=== PATIENT | female | born 1975 | race African-American/Black ===

== ENCOUNTER 2020-07-28 17:51 | Emergency (ER) | payer OTHER ==
[~2020-07-28] VITALS: Ht 157.5 cm; Wt 73.0 kg
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
[2020-07-28] MEDS ORDERED: NAPR-514 PO (19:59)
[2020-07-28] MEDS ORDERED: CYCL10TA2 PO (19:59)
[2020-07-28 20:00] VITALS: BP 120/71
== END 2020-07-28 20:10 | disposition home or self-care (01) ==
LOC: ER 17:51
DX: S13.9XXA Sprain of joints and ligaments of unspecified parts of neck, initial encounter (principal); M54.6 Pain in thoracic spine; M54.5 Low back pain; M25.512 Pain in left shoulder; Z88.0 Allergy status to penicillin; V49.49XA Driver injured in collision with other motor vehicles in traffic accident, initial encounter; Y92.488 Other paved roadways as the place of occurrence of the external cause; Y93.89 Activity, other specified; Y99.8 Other external cause status
CPT/HCPCS: 72125; 72128; 72131; 73030; 99285-25

== ENCOUNTER 2020-08-14 10:54 | Emergency (ER) | payer OTHER ==
[~2020-08-14] VITALS: Ht 160 cm; Wt 73.0 kg
[~2020-08-14 10:54] MED LIST: CYCL10TA2 PO; NAPR-514 PO
[2020-08-14] MEDS ORDERED: FAMOTIDINE 20 MG/2 ML VIAL IVP ONE (11:30)
[2020-08-14] MEDS ORDERED: LIDO:MAALOX 1:1 20 ML SINGLE DOSE. SWSW ONE (11:30)
[2020-08-14] MEDS ORDERED: ONDANSETRON PF 4 MG/2 ML VIAL. IVP ONE (11:30)
[2020-08-14] MEDS ORDERED: IV NORMAL SALINE 1000ML BAG 1,000 ML IV SCH (11:30)
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
[2020-08-14 11:59] LABS: BASO # 0.1 x10^3/uL (0.0-0.2); BASO % 1 % (0-3); EOS # 0.2 x10^3/uL (0.0-0.7); EOS % 5 % (0-3); HEMATOCRIT 36.2 % (36.0-47.0); HEMOGLOBIN 12.2 g/dL (12.0-15.5); LYMPH % 19 % (24-48); MEAN CORPUSCULAR HEMOGLOBIN 27 pg (25-35); MEAN CORPUSCULAR HGB CONC 34 g/dL (31-37); MEAN CORPUSCULAR VOLUME 80 fL (79-100); MONO # 0.6 x10^3/uL (0.0-1.1); MONO % 12 % (0-9); NEUT # 3.3 x10^3/uL (1.8-7.7); NEUT % 63 % (31-73); PLATELET COUNT 359 x10^3/uL (140-400); RED BLOOD COUNT 4.51 x10^6/uL (3.50-5.40); RED CELL DISTRIBUTION WIDTH 13.5 % (11.5-14.5); WHITE BLOOD COUNT 5.3 x10^3/uL (4.0-11.0)
[2020-08-14 12:00] VITALS: BP 114/78
[2020-08-14] MEDS ORDERED: fentaNYL PF VIAL 100 MCG/2 ML VIAL IVP ONE (12:15)
[2020-08-14 12:16] LABS: BILIRUBIN,URINE NEGATIVE (NEG); CLARITY,URINE CLEAR; COLOR,URINE YELLOW; NITRITE,URINE NEGATIVE (NEG); PH,URINE 6.5 (<5.0-8.0); PROTEIN,URINE NEGATIVE (NEG-TRACE); UROBILINOGEN,URINE 0.2 mg/dL (0.2 mg/dL)
[2020-08-14 12:17] LABS: CALCIUM 9.2 mg/dL (8.5-10.1); CREATININE 0.8 mg/dL (0.6-1.0); GFR 93.9; POTASSIUM 3.7 mmol/L (3.5-5.1)
[2020-08-14 12:21] LABS: ALBUMIN 3.2 g/dL (3.4-5.0); ALBUMIN/GLOBULIN RATIO 0.7 (1.0-1.7); TOTAL BILIRUBIN 0.3 mg/dL (0.2-1.0); TOTAL PROTEIN 7.6 g/dL (6.4-8.2)
[2020-08-14 12:24] LABS: BACTERIA,URINE 0 /HPF (0-FEW); WBC,URINE OCC /HPF (0-4)
[2020-08-14] MEDS ORDERED: IOHEXOL 300 MG/ML 100ML VIAL. IV ONE (12:30)
[2020-08-14] MEDS ORDERED: CONTRAST GIVEN. MC PRN (12:30)
--- NOTE | 2020-08-14 13:20 | RAD ---
EXAMINATION: CT CHEST+ABD+PELVIS W (CT CHEST WITH IV CONTRAST and CT ABDOMEN AND PELVIS WITH IV CONTR AST) CLINICAL HISTORY: Esophageal pain, vomiting, diarrhea TECHNIQUE: CT of the chest performed with IV contrast, scanning from the thoracic inlet to the upper abdomen. CT of the abdomen and pelvis performed with IV contrast, scanning from just above the dome o f the diaphragm to the symphysis pubis. CT Dose Reduction Employed: One or more of the following individualized dose reduction techniques wer e utilized for this examination: 1. Automated exposure control 2. Adjustment of the mA and/or kV ac cording to patient size 3. Use of iterative reconstruction technique. COMPARISON: Chest radiograph same day, CT cervicothoracolumbar spine 07/28/2020 FINDINGS: CHEST: No consolidation. Mild dependent bibasilar subsegmental atelectasis. No suspicious pulmonary nodule. Old calcified granulomas in the right perihilar region and peripheral right lower lobe. No pleural ef fusion. Central airways are patent. Redemonstration of 1.6 cm hypodense nodule in the right lobe of the thyroid gland. No mediastinal, hi lar, or axillary lymphadenopathy. Thoracic aorta and main pulmonary artery normal in caliber. Normal heart size. No pericardial effusion. Limited evaluation of the minimally distended esophagus unremarkable. No evidence of acute osseous abnormality. Redemonstration of nonspecific calcification in the anterio r epidural space at the level of T6-T8 resulting in mild osseous spinal stenosis. ABDOMEN/PELVIS: 1 cm ill-defined mildly hypoenhancing subcapsular focus in the inferior right hepatic lobe, nonspecif ic. Gallbladder, pancreas, spleen, adrenal glands, and kidneys unremarkable. Decompressed urinary bladder suboptimally evaluated. Intrauterine contraceptive device in place. Adne xa unremarkable. Diffuse colonic wall thickening with scattered submucosal fat deposition, greatest in the ascending c olon, and mild pericolonic stranding compatible with chronic colitis/inflammatory bowel disease. No s mall bowel dilation. Normal appendix. Nondistended stomach suboptimally evaluated. No abdominal aortic or iliac artery aneurysm. Multiple prominent but nonenlarged mesenteric and retro peritoneal lymph nodes, likely reactive. No evidence of acute osseous abnormality. IMPRESSION: No evidence of acute cardiopulmonary or abdominopelvic abnormality. Findings compatible with chronic colitis/inflammatory bowel disease. Redemonstration of 1.6 cm right thyroid nodule, again recommend nonemergent outpatient thyroid ultras ound if this has not already been obtained. Electronically signed by: Ken Levy DO (08/14/2020 1:18 PM) [facility]
[2020-08-14] MEDS ORDERED: ONDA4TAB12 PO (13:42)
[2020-08-14] MEDS ORDERED: FAMO-63 PO (13:42)
[2020-08-14] MEDS ORDERED: SUCR1ORA5 PO (13:42)
--- NOTE | 2020-08-14 19:39 | EKG ---
[facility] [address] [place] [address] Test Date: 2020-08-14 Test Time: 13:47:27 Pat Name: VERONICA LOONEY Department: Room: Gender: F [employer]: : 1975 Requested By: XIMENA ALMODOVAR Order Number: [id number] Reading MD: Measurements Intervals [place] Rate: 87 P: 48 DC: 192 QRS: -12 QRSD: 78 T: 10 QT: 340 QTc: 415 Interpretive Statements SINUS RHYTHM LEFTWARD AXIS OTHERWISE NORMAL ECG RI6.02 Compared to ECG 08/14/2020 13:45:48 Left-axis deviation now present
== END 2020-08-14 15:15 | disposition home or self-care (01) ==
LOC: ER 10:54
DX: R11.2 Nausea with vomiting, unspecified (principal); L29.9 Pruritus, unspecified; E04.1 Nontoxic single thyroid nodule; R52 Pain, unspecified; Z98.890 Other specified postprocedural states
CPT/HCPCS: 36415; 71045; 71260; 74177; 80053; 81001; 81025; 83690; 84484; 85025; 93005; 96361; 96374; 96375; 99285; J2405; J3010; J3490; J7030; Q9967

== ENCOUNTER 2020-10-21 09:03 | Inpatient (IN) | payer OTHER ==
[2020-10-21] VITALS (10 sets, daily range): BP systolic 106–129; BP diastolic 64–89
[~2020-10-21] VITALS: Ht 160 cm; Wt 64.4 kg
[~2020-10-21 09:03] MED LIST changes: +FAMO-63 PO; +ONDA4TAB12 PO; +SUCR1ORA5 PO
[2020-10-21] MEDS ORDERED: IV NORMAL SALINE 1000ML BAG 1,000 ML IV ONE ×2 (09:40)
[2020-10-21] MEDS ORDERED: ACETAMINOPHEN 325 MG TABLET. PO ONE (09:45)
[2020-10-21 09:52] LABS: BASO % 0 % (0-3); EOS % 0 % (0-3); HEMOGLOBIN 14.9 g/dL (12.0-15.5); LYMPH # 0.5 x10^3/uL (1.0-4.8); LYMPH % 4 % (24-48); MEAN CORPUSCULAR HEMOGLOBIN 26 pg (25-35); MEAN CORPUSCULAR HGB CONC 31 g/dL (31-37); MEAN CORPUSCULAR VOLUME 84 fL (79-100); MONO # 0.7 x10^3/uL (0.0-1.1); MONO % 6 % (0-9); NEUT # 11.4 x10^3/uL (1.8-7.7); NEUT % 90 % (31-73); PLATELET COUNT 512 x10^3/uL (140-400); RED BLOOD COUNT 5.75 x10^6/uL (3.50-5.40); RED CELL DISTRIBUTION WIDTH 14.2 % (11.5-14.5); WHITE BLOOD COUNT 12.6 x10^3/uL (4.0-11.0)
[2020-10-21 09:57] LABS: BILIRUBIN,URINE NEGATIVE (NEG); CLARITY,URINE CLEAR; COLOR,URINE YELLOW; NITRITE,URINE NEGATIVE (NEG); PROTEIN,URINE NEGATIVE (NEG-TRACE); UROBILINOGEN,URINE 0.2 mg/dL (0.2 mg/dL)
[2020-10-21 10:02] LABS: PROTHROMBIN TIME PATIENT 14.3 SEC (11.7-14.0)
[2020-10-21 10:03] LABS: AMPHETAMINE/METHAMPHETAMINE NEG (NEG); BARBITURATES NEG (NEG); BENZODIAZEPINES NEG (NEG); CANNABINOIDS NEG (NEG); COCAINE NEG (NEG); METHADONE NEG (NEG); OPIATES NEG (NEG); PHENCYCLIDINE NEG (NEG)
[2020-10-21 10:11] LABS: PREG TEST PT QUAL NEGATIVE (NEG)
--- NOTE | 2020-10-21 10:11 | RAD ---
EXAM: Chest, single view. HISTORY: Fever. COMPARISON: 08/14/2020 FINDINGS: A frontal view of the chest is obtained. There is no infiltrate, pleural effusion or pneumo thorax. The heart is normal in size. IMPRESSION: No acute pulmonary finding. Electronically signed by: Rosalba López MD (10/21/2020 10:08 AM) [id number]
[2020-10-21 10:14] LABS: CALCIUM 10.3 mg/dL (8.5-10.1); CREATININE 1.3 mg/dL (0.6-1.0); GFR 53.6; POTASSIUM 4.8 mmol/L (3.5-5.1)
[2020-10-21 10:16] LABS: ALBUMIN 3.8 g/dL (3.4-5.0); ALBUMIN/GLOBULIN RATIO 0.7 (1.0-1.7); TOTAL BILIRUBIN 0.4 mg/dL (0.2-1.0); TOTAL PROTEIN 8.9 g/dL (6.4-8.2)
[2020-10-21 10:21] LABS: BACTERIA,URINE FEW /HPF (0-FEW); YEAST,URINE PRESENT /HPF
--- NOTE | 2020-10-21 10:37 | PHYS DOC ---
Past Medical History Past Medical History: Anemia, Other Additional Past Medical Histor: HEART MURMUR Past Surgical History: Smoking Status: Never Smoker Alcohol Use: None General Adult EDM: Chief Complaint: DIZZY/LIGHT HEADED HPI: HPI: 45-year-old female presents to the ED with complaints of loose watery diarrhea times 3 days, associated weakness, body aches, subjective fever and chills with sore throat and coughing. States she took hydrocodone prior to arrival. Review of Systems: Review of Systems: Constitutional: Denies fever or chills. [] Eyes: Denies change in visual acuity. [] HENT: Denies nasal congestion or nasal flaring Respiratory: Denies abscess or increased work of breathing Cardiovascular: Denies chest pain or edema. [] GI: Denies melena or hematochezia : Denies dysuria or vaginal bleeding Musculoskeletal: Denies back pain or joint pain. [] Integument: Denies rash or diaphoresis Neurologic: Denies headache, neck pain, focal weakness or sensory changes. [] Endocrine: Denies polyuria or polydipsia. [] Lymphatic: Denies swollen glands. [] Psychiatric: Denies depression or anxiety. [] Heart Score: C/O Chest Pain: No Risk Factors: Risk Factors: DM, Current or recent (<one month) smoker, HTN, HLP, family history of CAD, obesity. Risk Scores: Score 0 - 3: 2.5% MACE over next 6 weeks - Discharge Home Score 4 - 6: 20.3% MACE over next 6 weeks - Admit for Clinical Observation Score 7 - 10: 72.7% MACE over next 6 weeks - Early Invasive Strategies Current Medications: Current Medications Medications (Trade) Dose Ordered Sig/Bhupinder Start Time Stop Time Status Last Admin Dose Admin Acetaminophen (Tylenol) 650 mg 1X ONCE 10/21/20 09:45 10/21/20 09:46 DC 10/21/20 10:23 650 MG Sodium Chloride 1,000 ml @ 1,000 mls/hr 1X ONCE 10/21/20 09:40 10/21/20 10:39 10/21/20 10:22 1,000 MLS/HR Allergies: Allergies: Allergies Coded Allergies Type Severity Reaction Last Updated Verified Penicillins Allergy Mild 07/28/20 Yes Physical Exam: PE: Constitutional: no acute distress, ill/flu appearing. HENT: Normocephalic, atraumatic, dry mucous membranes Eyes: EOMI, conjunctiva normal, no discharge. Neck: Normal range of motion, supple, Cardiovascular: S1/2 present, tachycardic Lungs & Thorax: Speaking in full sentences, bilateral equal chest rise, no tachypnea or increased work of breathing Abdomen: soft, no tenderness, Skin: Warm, dry, no erythema, no rash. [] Back: No tenderness, no CVA tenderness. [] Extremities: No tenderness, no cyanosis, no lower extremity edema Neurologic: Alert and oriented X 3, normal motor function, normal sensory function, no focal deficits noted. [] Psychologic: Affect normal, judgement normal, mood normal. [] Current Patient Data: Labs: Laboratory Tests Test 10/21/20 09:07 10/21/20 09:30 10/21/20 09:36 Urine Collection Type Unknown Urine Color Yellow Urine Clarity Clear Urine pH 5.0 (<5.0-8.0) Urine Specific [place] >=1.030 (1.000-1.030) Urine Protein Negative mg/dL (NEG-TRACE) Urine Glucose (UA) >=1000 mg/dL (NEG) Urine Ketones (Stick) >=80 mg/dL (NEG) Urine Blood Negative (NEG) Urine Nitrite Negative (NEG) Urine Bilirubin Negative (NEG) Urine Urobilinogen Dipstick 0.2 mg/dL (0.2 mg/dL) Urine Leukocyte Esterase Negative (NEG) Urine RBC 1-2 /HPF (0-2) Urine WBC 1-4 /HPF (0-4) Urine Squamous Epithelial Cells Mod /LPF Urine Bacteria Few /HPF (0-FEW) Urine Yeast Present /HPF Urine Opiates Screen Neg (NEG) Urine Methadone Screen Neg (NEG) Urine Barbiturates Neg (NEG) Urine Phencyclidine Screen Neg (NEG) Urine Amphetamine/Methamphetamine Neg (NEG) Urine Benzodiazepines Screen Neg (NEG) Urine Cocaine Screen Neg (NEG) Urine Cannabinoids Screen Neg (NEG) Urine Ethyl Alcohol Neg (NEG) White Blood Count 12.6 x10^3/uL (4.0-11.0) H Red Blood Count 5.75 x10^6/uL (3.50-5.40) H Hemoglobin 14.9 g/dL (12.0-15.5) Hematocrit 48.0 % (36.0-47.0) H Mean Corpuscular Volume 84 fL (79-100) Mean Corpuscular Hemoglobin 26 pg (25-35) Mean Corpuscular Hemoglobin Concent 31 g/dL (31-37) Red Cell Distribution Width 14.2 % (11.5-14.5) Platelet Count 512 x10^3/uL (140-400) H Neutrophils (%) (Auto) 90 % (31-73) H Lymphocytes (%) (Auto) 4 % (24-48) L Monocytes (%) (Auto) 6 % (0-9) Eosinophils (%) (Auto) 0 % (0-3) Basophils (%) (Auto) 0 % (0-3) Neutrophils # (Auto) 11.4 x10^3/uL (1.8-7.7) H Lymphocytes # (Auto) 0.5 x10^3/uL (1.0-4.8) L Monocytes # (Auto) 0.7 x10^3/uL (0.0-1.1) Eosinophils # (Auto) 0.0 x10^3/uL (0.0-0.7) Basophils # (Auto) 0.0 x10^3/uL (0.0-0.2) Platelet Estimate Pending Sodium Level 136 mmol/L (136-145) Potassium Level 4.8 mmol/L (3.5-5.1) Chloride Level 96 mmol/L (98-107) L Carbon Dioxide Level 16 mmol/L (21-32) L Anion Gap 24 (6-14) H Blood Urea Nitrogen 22 mg/dL (7-20) H Creatinine 1.3 mg/dL (0.6-1.0) H Estimated GFR (Cockcroft-Gault) 53.6 BUN/Creatinine Ratio 17 (6-20) Glucose Level 897 mg/dL (70-99) *H Lactic Acid Level 3.2 mmol/L (0.4-2.0) H Calcium Level 10.3 mg/dL (8.5-10.1) H Total Bilirubin 0.4 mg/dL (0.2-1.0) Aspartate Amino Transferase (AST) 10 U/L (15-37) L Alanine Aminotransferase (ALT) 17 U/L (14-59) Alkaline Phosphatase 135 U/L (46-116) H Creatine Kinase 36 U/L (26-192) Troponin I Quantitative < 0.017 ng/mL (0.000-0.055) Total Protein 8.9 g/dL (6.4-8.2) H Albumin 3.8 g/dL (3.4-5.0) Albumin/Globulin Ratio 0.7 (1.0-1.7) L Lipase 1099 U/L (73-393) H Serum Test, Qualitative Negative (NEG) POC Urine HCG, Qualitative Hcg negative (Negative) Laboratory Tests 10/21/20 09:30 Laboratory Tests 10/21/20 09:30 Vital Signs: Vital Signs Date Time Temp Pulse Resp B/P (MAP) Pulse Ox O2 Delivery O2 Flow Rate FiO2 10/21/20 09:10 98.2 136 20 128/85 (99) 99 Room Air 98.2 EKG: EKG: Sinus tachycardia 120 bpm, no axis deviation, normal intervals, no T wave inv ersions, no ST elevations or ST depressions Radiology/Procedures: Radiology/Procedures: IMAGING REPORT Signed PATIENT: VERONICA LOONEY ACCOUNT: [id number] : 1975 LOCATION: ER AGE: 45 SEX: F EXAM STATUS: PRE ER ORD. PHYSICIAN: JANETTE LOZANO DO REASON: fever PROCEDURE: CHEST AP ONLY EXAM: Chest, single view. HISTORY: Fever. COMPARISON: 08/14/2020 FINDINGS: A frontal view of the chest is obtained. There is no infiltrate, pleural effusion or pneumothorax. The heart is normal in size. IMPRESSION: No acute pulmonary finding. Electronically signed by: Rosalba Russ MD (10/21/2020 10:08 AM) [id number] DICTATED and SIGNED BY: ROSALBA RUSS MD DATE: 10/21/20 [id number] IMAGING REPORT Signed PATIENT: VERONICA LOONEY ACCOUNT: [id number] : 1975 LOCATION: [address] [place] [address] AGE: 45 SEX: F EXAM STATUS: ADM IN ORD. PHYSICIAN: JANETTE LOZANO DO REASON: SOA, R/O PE, pancreatitis PROCEDURE: CT ANGIO CHEST W ABD PEL W/ EXAM: Chest, abdomen and pelvis CT angiogram with intravenous contrast. HISTORY: Shortness of air. Pancreatitis. TECHNIQUE: Computed tomographic images of the chest, abdomen and pelvis were obtained following the administration of intravenous contrast. Multiplanar reformatting was performed. Three-dimensional images were obtained. *One or more of the following individualized dose reduction techniques were utilized for this examination: 1. Automated exposure control. 2. Adjustment of the mA and/or kV according to patient size. 3. Use of iterative reconstruction technique. COMPARISON: None. FINDINGS: Chest: There is no aortic aneurysm or dissection. No central pulmonary embolism is seen. Evaluation for distal pulmonary emboli is limited due to timing of contrast administration. There are calcified mediastinal and hilar granulomas. There is no lymphadenopathy. There is no pneumothorax or pleural effusion. There is a former nodule with adjacent 2 mm nodule within the lateral right lower lobe. Abdomen and pelvis: No hepatic lesion is seen. The gallbladder, pancreas, spleen and adrenal glands are unremarkable. There is a small simple appearing cyst within the left kidney. Follow-up is not routinely performed for simple cysts. There is no appendicitis. There is no bowel obstruction. There is mild diffuse colonic wall thickening. There is no bowel obstruction. There is no free air. The urinary bladder is unremarkable. There is an IUD within the pelvis. There is a 2.6 cm dominant right ovarian follicle/follicular cyst. There is no lymphadenopathy. There is no suspicious osseous lesion. IMPRESSION: 1. No evidence of aortic dissection or central pulmonary embolism. Evaluation for distal pulmonary emboli is limited due to suboptimal contrast opacification of pulmonary arteries. 2. No CT evidence of acute pancreatitis. 3. Mild diffuse colonic wall thickening. This may be due to underdistention. However, correlate with hematology to exclude colitis 4. 4 mm and 2 mm right lower lobe pulmonary nodules. Follow-up can be performed in one year if there are risk factors for for neoplasm. 5. Small left renal cyst. Follow-up is not routinely performed for simple cysts. 6. 2.6 cm dominant right ovarian follicle/follicular cyst. Electronically signed by: Rosalba Russ MD (10/21/2020 1:16 PM) [id number] DICTATED and SIGNED BY: ROSALBA RUSS MD DATE: 10/21/20 [id number] 0 Course & Med Decision Making: Course & Med Decision Making Pertinent Labs and Imaging studies reviewed. (See chart for details) Concern for new onset diabetes with sepsis secondary to pancreatitis and DKA. I have spoken with the patient and/or caregivers. I have explained the patient's condition, diagnosis and treatment plan based on the information available to me at this time. I have answered the patient's and/or caregivers questions and answered any concerns. The patient and/or caregivers have as good an understanding of the patient's diagnosis, condition and treatment plan as can be expected at this point. The patient has been stabilized within the capability of the emergency department. The patient will be transported for further care and management or will be moved to an observation or inpatient service. I have communicated with the staff or medical practitioner taking over this patient's care. Critical Care: Authorized and Performed by: Janette Lozano DO Total critical care time: approximately 45 minutes Due to a high probability of clinically significant, life threatening deterioration, the patient required my highest level of preparedness to intervene emergently and I personally spent this critical care time directly and personally managing the patient. This critical care time included obtaining a history; examining the patient; pulse oximetry; ventilator management if necessary; ordering and review of studies; arranging urgent treatment with development of a management plan; evaluation of patient's response to treatment; frequent reassessment; discussion with patient/family; and, discussions with other providers. This critical care time was performed to assess and manage the high probability of imminent, life-threatening deterioration that could result in multi-organ failure. It was exclusive of separately billable procedures and treating other patients and teaching time. Please see MDM section and the rest of the note for further information on patient assessment and treatment. Dragon Disclaimer: Dragon Disclaimer: This electronic medical record was generated, in whole or in part, using a voice recognition dictation system. Departure Departure Impression: Primary Impression: DKA (diabetic ketoacidoses) Additional Impressions: Sepsis Pancreatitis Disposition: ADMITTED INPATIENT Admitting Physician: BEVERLY (Dr. Garcia) Condition: CRITICAL Referrals: UNKNOWN PCP NAME (PCP) JANETTE LOZANO DO Oct 21, 2020 10:37
[2020-10-21 10:39] LABS: D-DIMER 0.81 ug/mlFEU (0.00-0.50)
[2020-10-21] MEDS ORDERED: IV RINGERS,LACTATED 500ML 500 ML IV ONE (10:45)
[2020-10-21 10:54] LABS: ACETAMIN < 2 mcg/ml (10-30); ETHANOL < 10 mg/dL (0-10); SALIC 4.4 mg/dL (2.8-20.0)
--- NOTE | 2020-10-21 11:02 | EKG ---
[facility] [address] [place] [address] Test Date: 2020-10-21 Test Time: 09:23:23 Pat Name: VERONICA LOONEY Department: Room: Gender: F Director Of Collections: : 1975 Requested By: BONNIE LOZANO Order Number: [id number] Reading MD: Measurements Intervals [place] Rate: 129 P: 80 [place]: 124 QRS: -7 QRSD: 70 T: 44 QT: 306 QTc: 450 Interpretive Statements SINUS TACHYCARDIA BIATRIAL ENLARGEMENT LEFTWARD AXIS ABNORMAL ECG RI6.02 No previous ECG available for comparison
[2020-10-21 11:06] LABS: % BANDS 16 % (0-9); % LYMPHS 4 % (24-48); % MONOS 5 % (0-10); % SEGS 75 % (35-66)
[2020-10-21 11:07] LABS: PLT ESTIMATE ADEQUATE (ADEQUATE)
[2020-10-21] MEDS ORDERED: HYDROmorphone 2 MG/ML VIAL IVP ONE (12:00)
[2020-10-21 12:13] LABS: MAGNESIUM 2.6 mg/dL (1.8-2.4); PHOSPHORUS 7.5 mg/dL (2.6-4.7)
[2020-10-21] MEDS ORDERED: POTASSIUM CHLORIDE 10MEQ 100 ML IV PRN ×3 (12:15)
[2020-10-21] MEDS ORDERED: IV DEXTROSE 5 %-0.45 % NACL 1,000 ML IV SCH (12:15)
[2020-10-21] MEDS ORDERED: IOHEXOL 350 MG/ML 100 ML VIAL. IV ONE (12:15)
[2020-10-21] MEDS ORDERED: IOHEXOL 300 MG/ML 100ML VIAL. IV ONE (12:15)
[2020-10-21] MEDS ORDERED: INSULIN REGULAR VIAL 100 UNIT in IV NORMAL SALINE 100ML 100 ML IV PRN (12:15)
[2020-10-21 12:29] LABS: INFLUENZA A PATIENT NEGATIVE (NEGATIVE); INFLUENZA B PATIENT NEGATIVE (NEGATIVE)
[2020-10-21] MEDS ORDERED: IV NORMAL SALINE 1000ML BAG 1,000 ML IV SCH (12:45)
[2020-10-21] MEDS ORDERED: INSULIN,REGULAR 100 UNIT DRIP 100 ML IV ONE (12:45)
--- NOTE | 2020-10-21 13:18 | RAD ---
EXAM: Chest, abdomen and pelvis CT angiogram with intravenous contrast. HISTORY: Shortness of air. Pancreatitis. TECHNIQUE: Computed tomographic images of the chest, abdomen and pelvis were obtained following the a dministration of intravenous contrast. Multiplanar reformatting was performed. Three-dimensional imag es were obtained. *One or more of the following individualized dose reduction techniques were utilized for this examina tion: 1. Automated exposure control. 2. Adjustment of the mA and/or kV according to patient size. 3. Use of iterative reconstruction technique. COMPARISON: None. FINDINGS: Chest: There is no aortic aneurysm or dissection. No central pulmonary embolism is seen. Ev aluation for distal pulmonary emboli is limited due to timing of contrast administration. There are c alcified mediastinal and hilar granulomas. There is no lymphadenopathy. There is no pneumothorax or p leural effusion. There is a former nodule with adjacent 2 mm nodule within the lateral right lower lo be. Abdomen and pelvis: No hepatic lesion is seen. The gallbladder, pancreas, spleen and adrenal glands a re unremarkable. There is a small simple appearing cyst within the left kidney. Follow-up is not rout inely performed for simple cysts. There is no appendicitis. There is no bowel obstruction. There is m ild diffuse colonic wall thickening. There is no bowel obstruction. There is no free air. The urinary bladder is unremarkable. There is an IUD within the pelvis. There is a 2.6 cm dominant right ovarian follicle/follicular cyst. There is no lymphadenopathy. There is no suspicious osseous lesion. IMPRESSION: 1. No evidence of aortic dissection or central pulmonary embolism. Evaluation for distal pulmonary em boli is limited due to suboptimal contrast opacification of pulmonary arteries. 2. No CT evidence of acute pancreatitis. 3. Mild diffuse colonic wall thickening. This may be due to underdistention. However, correlate with hematology to exclude colitis 4. 4 mm and 2 mm right lower lobe pulmonary nodules. Follow-up can be performed in one year if there are risk factors for for neoplasm. 5. Small left renal cyst. Follow-up is not routinely performed for simple cysts. 6. 2.6 cm dominant right ovarian follicle/follicular cyst. Electronically signed by: Rosalba López MD (10/21/2020 1:16 PM) [id number]
[2020-10-21 14:17] LABS: CALCIUM 8.5 mg/dL (8.5-10.1); GFR 72.5; MAGNESIUM 2.3 mg/dL (1.8-2.4); PHOSPHORUS 4.1 mg/dL (2.6-4.7); POTASSIUM 5.2 mmol/L (3.5-5.1)
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
[2020-10-21] MEDS: ENOXAPARIN 40 MG/0.4 ML SYRINGE. SQ SCH (15:00)
[2020-10-21] MEDS: IV 1/2 NORMAL SALINE 1,000 ML IV SCH ×3 (15:28→22:45)
[2020-10-21 17:31] LABS: CALCIUM 8.3 mg/dL (8.5-10.1); CREATININE 0.9 mg/dL (0.6-1.0); GFR 81.9; MAGNESIUM 2.2 mg/dL (1.8-2.4); PHOSPHORUS 1.6 mg/dL (2.6-4.7); POTASSIUM 3.9 mmol/L (3.5-5.1)
[2020-10-21] MEDS: IV DEXTROSE 5 %-0.45 % NACL 1,000 ML IV SCH ×2 (17:56→21:52)
[2020-10-21] MEDS ORDERED: NORMAL SALINE IV ONE (18:00)
[2020-10-21] MEDS ORDERED: POTASSIUM PHOS M BASIC D BASIC IV ONE (18:00)
[2020-10-21] MEDS ORDERED: DEXTROSE 50% 25 GM / 50ML DISP.SYRIN. IV PRN (19:00)
[2020-10-21] MEDS: INSULIN GLARGINE SYRINGE. SQ SCH (21:03)
[2020-10-22] VITALS (7 sets, daily range): BP systolic 100–128; BP diastolic 60–77
[2020-10-22] MEDS: IV DEXTROSE 5 %-0.45 % NACL 1,000 ML IV SCH ×2 (01:58→06:31)
[2020-10-22] MEDS: IV 1/2 NORMAL SALINE 1,000 ML IV SCH ×6 (02:45→22:45)
[2020-10-22 06:00] LABS: CALCIUM 7.4 mg/dL (8.5-10.1); CREATININE 0.7 mg/dL (0.6-1.0); GFR 109.5; POTASSIUM 3.7 mmol/L (3.5-5.1)
[2020-10-22] MEDS ORDERED: INSULIN LISPRO 300 UNITS/3 ML VIAL. SQ SCH (07:30)
[2020-10-22] MEDS: INSULIN LISPRO 300 UNITS/3 ML VIAL. SQ SCH ×5 (08:48→18:19)
[2020-10-22] MEDS ORDERED: IV NORMAL SALINE 1000ML BAG 1,000 ML IV ONE (09:30)
[2020-10-22] MEDS: IV NORMAL SALINE 1000ML BAG 1,000 ML IV SCH ×2 (11:00→21:04)
[2020-10-22] MEDS: ONDANSETRON PF 4 MG/2 ML VIAL. IVP PRN ×2 (11:09→23:36)
[2020-10-22] MEDS: ACETAMINOPHEN 325 MG TABLET. PO PRN ×2 (11:10→21:17)
--- NOTE | 2020-10-22 14:40 | PDOC ---
[employer] PROGRESS NOTE Date of Service DOS: DATE: 10/22/20 TIME: 14:38 Chief Complaint Chief Complaint DKA, acute acidosis, blood sugar almost 900 anxiety disorder, ativan PRN she reports prior hx of anemia, dehydration on admit History of Present Illness History of Present Illness up and trying to eat, some anxiety and very emotional still cont current, went up on meal dose insulin nausea tx as able transfer out of ICU bolus additional 1 liter NS Vitals/I&O Vitals/I&O: Vital Signs Date Time Temp Pulse Resp B/P (MAP) Pulse Ox O2 Delivery O2 Flow Rate FiO2 10/22/20 11:00 98.9 114 22 115/66 (82) 97 Room Air 98.9 I & O 10/21/20 10/21/20 10/22/20 15:00 23:00 07:00 Intake Total 2750 ml 510 ml 250 ml Output Total 400 ml 300 ml 851 ml Balance 2350 ml 210 ml -601 ml Physical Exam General: Alert, Oriented X3, Cooperative, mild distress Extremities: No clubbing, No edema, Normal pulses Skin: No breakdown Labs Labs: Laboratory Tests Test 10/21/20 14:50 10/21/20 15:53 10/21/20 16:58 10/21/20 17:10 Glucose (Fingerstick) 434 mg/dL (70-99) 330 mg/dL (70-99) 273 mg/dL (70-99) Sodium Level 147 mmol/L (136-145) Potassium Level 3.9 mmol/L (3.5-5.1) Chloride Level 113 mmol/L (98-107) Carbon Dioxide Level 23 mmol/L (21-32) Anion Gap 11 (6-14) Blood Urea Nitrogen 12 mg/dL (7-20) Creatinine 0.9 mg/dL (0.6-1.0) Estimated GFR (Cockcroft-Gault) 81.9 Glucose Level 241 mg/dL (70-99) Calcium Level 8.3 mg/dL (8.5-10.1) Phosphorus Level 1.6 mg/dL (2.6-4.7) Magnesium Level 2.2 mg/dL (1.8-2.4) Triglycerides Level 96 mg/dL (0-150) Lipase 432 U/L (73-393) Test 10/21/20 19:40 10/21/20 22:19 10/22/20 00:34 10/22/20 05:00 Glucose (Fingerstick) 188 mg/dL (70-99) 222 mg/dL (70-99) 286 mg/dL (70-99) Sodium Level 138 mmol/L (136-145) Potassium Level 3.7 mmol/L (3.5-5.1) Chloride Level 107 mmol/L (98-107) Carbon Dioxide Level 20 mmol/L (21-32) Anion Gap 11 (6-14) Blood Urea Nitrogen 7 mg/dL (7-20) Creatinine 0.7 mg/dL (0.6-1.0) Estimated GFR (Cockcroft-Gault) 109.5 Glucose Level 441 mg/dL (70-99) Calcium Level 7.4 mg/dL (8.5-10.1) Test 10/22/20 08:11 10/22/20 12:38 Glucose (Fingerstick) 382 mg/dL (70-99) 296 mg/dL (70-99) Assessment and Plan Assessmemt and Plan Problems Medical Problems: (1) DKA (diabetic ketoacidoses) Status: Acute (2) Pancreatitis Status: Acute (3) Sepsis Status: Acute Comment Review of Relevant I have reviewed the following items allyssa (where applicable) has been applied. Medications: Current Medications Medications (Trade) Dose Ordered Sig/Bhupinder Route PRN Reason Start Time Stop Time Status Last Admin Dose Admin Sodium Chloride 1,000 ml @ 250 mls/hr Q4H IV 10/21/20 14:45 10/21/20 15:28 Dextrose/Sodium Chloride 1,000 ml @ 250 mls/hr Q4H IV 10/21/20 18:00 10/22/20 09:14 DC 10/22/20 06:31 Potassium Phosphate 20 mmol/ Sodium Chloride 506.6667 ml @ 125 mls/hr 1X ONCE IV 10/21/20 18:00 10/21/20 22:03 DC 10/21/20 18:02 Insulin Glargine (Lantus Syringe) 12 unit QHS SQ 10/21/20 21:00 10/21/20 21:03 Insulin Human Lispro (HumaLOG) 0-9 UNITS TIDWMEALS SQ 10/22/20 08:00 10/22/20 12:43 Insulin Human Lispro (HumaLOG) 3 units TIDAC SQ 10/22/20 07:30 10/22/20 09:13 DC 10/22/20 08:47 Insulin Human Lispro (HumaLOG) 6 units TIDAC SQ 10/22/20 11:30 10/22/20 12:43 Sodium Chloride 1,000 ml @ 1,000 mls/hr 1X ONCE IV 10/22/20 09:30 10/22/20 10:29 DC 10/22/20 09:45 Sodium Chloride 1,000 ml @ 100 mls/hr Q10H IV 10/22/20 11:00 10/22/20 11:00 Ondansetron HCl (Zofran) 4 mg PRN Q6HRS PRN IVP NAUSEA/VOMITING 10/22/20 11:00 10/22/20 11:09 Acetaminophen (Tylenol) 650 mg PRN Q6HRS PRN PO MILD PAIN / TEMP > 100.3'F 10/22/20 11:00 10/22/20 11:10 Justifications for Admission Other Justification MESFIN PIZARRO MD October 22, 2020 14:40
[2020-10-22] MEDS ORDERED: POTASSIUM CHLORIDE 20 MEQ TABLET.ER. PO ONE (14:45)
[2020-10-22] MEDS: ENOXAPARIN 40 MG/0.4 ML SYRINGE. SQ SCH (15:40)
[2020-10-22] MEDS: INSULIN GLARGINE SYRINGE. SQ SCH (21:05)
[2020-10-23] MEDS: IV 1/2 NORMAL SALINE 1,000 ML IV SCH (02:45)
[2020-10-23 03:00] VITALS: BP 124/67
[2020-10-23 05:11] LABS: BASO % 0 % (0-3); EOS # 0.1 x10^3/uL (0.0-0.7); EOS % 1 % (0-3); HEMATOCRIT 33.5 % (36.0-47.0); HEMOGLOBIN 10.6 g/dL (12.0-15.5); LYMPH # 0.9 x10^3/uL (1.0-4.8); LYMPH % 13 % (24-48); MEAN CORPUSCULAR HEMOGLOBIN 25 pg (25-35); MEAN CORPUSCULAR HGB CONC 32 g/dL (31-37); MEAN CORPUSCULAR VOLUME 80 fL (79-100); MONO % 15 % (0-9); NEUT # 4.6 x10^3/uL (1.8-7.7); NEUT % 70 % (31-73); PLATELET COUNT 305 x10^3/uL (140-400); RED BLOOD COUNT 4.17 x10^6/uL (3.50-5.40); RED CELL DISTRIBUTION WIDTH 14.3 % (11.5-14.5); WHITE BLOOD COUNT 6.6 x10^3/uL (4.0-11.0)
--- NOTE | 2020-10-23 05:30 | NUR ---
Pt transferred out to rm [id number]. Pt alert and oriented and stable. Report called to Faisal CHOE prior transfer. Pt had multiple liquid stools overnight, C Diff sample was collected and sent, also pt with low grade fever, tylenol given once, temp was 100 this am
[2020-10-23 05:40] VITALS: BP 116/68
[2020-10-23 05:40] LABS: CALCIUM 7.6 mg/dL (8.5-10.1); CREATININE 0.6 mg/dL (0.6-1.0); GFR 130.8
[2020-10-23 05:47] LABS: POTASSIUM 2.9 mmol/L (3.5-5.1)
[2020-10-23] MEDS ORDERED: POTASSIUM CHLORIDE 20 MEQ TABLET.ER. PO ONE ×2 (06:00→10:00)
[2020-10-23 07:00] VITALS: BP 125/77
[2020-10-23] MEDS: INSULIN LISPRO 300 UNITS/3 ML VIAL. SQ SCH ×6 (07:30→17:56)
[2020-10-23] MEDS: ACETAMINOPHEN 325 MG TABLET. PO PRN ×3 (09:06→16:09)
[2020-10-23] MEDS: IV NORMAL SALINE 1000ML BAG 1,000 ML IV SCH (09:08)
[2020-10-23] MEDS: ONDANSETRON PF 4 MG/2 ML VIAL. IVP PRN (09:25)
[2020-10-23 10:22] LABS: MAGNESIUM 1.7 mg/dL (1.8-2.4); PHOSPHORUS 2.3 mg/dL (2.6-4.7)
[2020-10-23] MEDS ORDERED: POTASSIUM BICARB 20 MEQ EFFERVESCENT TABLET. PO ONE (10:30)
--- NOTE | 2020-10-23 10:54 | PDOC ---
[employer] PROGRESS NOTE Date of Service DOS: DATE: 10/23/20 TIME: 09:55 Chief Complaint Chief Complaint A/P: DKA - acute acidosis, blood sugar almost 900 Anxiety disorder - ativan PRN Anemia - Dehydration - History of Present Illness History of Present Illness Ms Zamarripa is 45yo F w/ PMHx anemia, uterine fibroids who presented to the ED via EMS from home due to progressive weakness with 8-10 episodes of diarrhea and emesis. She was unable to lift her arms or legs. She had a headache 710 as well as some nominal pain 7 out of 10. She had just recently finished treatment with amoxicillin and Medrol for dental caries last week. Very tearful she has no history that she knows of high blood sugar or diabetes. She follows at [facility]. Initially admitted to the ICU on DKA protocol with glucose over 900. 10/22: Up and trying to eat, some anxiety and very emotional still. Went up on meal dose insulin. Transfer out of ICU. Bolus additional 1 liter NS Glucose in 200s K2.9. Still with abdominal pain today. D/w father bedside. Replace phos, mag, K Vitals/I&O Vitals/I&O: Vital Signs Date Time Temp Pulse Resp B/P (MAP) Pulse Ox O2 Delivery O2 Flow Rate FiO2 10/23/20 07:00 98.6 99 18 125/77 (93) 97 Room Air 98.6 I & O 10/22/20 10/22/20 10/23/20 15:00 23:00 07:00 Intake Total 2705 ml 250 ml 511 ml Output Total 1175 ml 350 ml Balance 1530 ml 250 ml 161 ml Physical Exam General: Alert, Oriented X3, Cooperative, mild distress Extremities: No clubbing, No edema, Normal pulses Skin: No breakdown Labs Labs: Laboratory Tests Test 10/22/20 12:38 10/22/20 18:08 10/22/20 21:02 10/23/20 05:00 Glucose (Fingerstick) 296 mg/dL (70-99) 238 mg/dL (70-99) 153 mg/dL (70-99) White Blood Count 6.6 x10^3/uL (4.0-11.0) Red Blood Count 4.17 x10^6/uL (3.50-5.40) Hemoglobin 10.6 g/dL (12.0-15.5) Hematocrit 33.5 % (36.0-47.0) Mean Corpuscular Volume 80 fL (79-100) Mean Corpuscular Hemoglobin 25 pg (25-35) Mean Corpuscular Hemoglobin Concent 32 g/dL (31-37) Red Cell Distribution Width 14.3 % (11.5-14.5) Platelet Count 305 x10^3/uL (140-400) Neutrophils (%) (Auto) 70 % (31-73) Lymphocytes (%) (Auto) 13 % (24-48) Monocytes (%) (Auto) 15 % (0-9) Eosinophils (%) (Auto) 1 % (0-3) Basophils (%) (Auto) 0 % (0-3) Neutrophils # (Auto) 4.6 x10^3/uL (1.8-7.7) Lymphocytes # (Auto) 0.9 x10^3/uL (1.0-4.8) Monocytes # (Auto) 1.0 x10^3/uL (0.0-1.1) Eosinophils # (Auto) 0.1 x10^3/uL (0.0-0.7) Basophils # (Auto) 0.0 x10^3/uL (0.0-0.2) Sodium Level 140 mmol/L (136-145) Potassium Level 2.9 mmol/L (3.5-5.1) Chloride Level 106 mmol/L (98-107) Carbon Dioxide Level 22 mmol/L (21-32) Anion Gap 12 (6-14) Blood Urea Nitrogen 3 mg/dL (7-20) Creatinine 0.6 mg/dL (0.6-1.0) Estimated GFR (Cockcroft-Gault) 130.8 Glucose Level 264 mg/dL (70-99) Calcium Level 7.6 mg/dL (8.5-10.1) Test 10/23/20 08:01 Glucose (Fingerstick) 266 mg/dL (70-99) Assessment and Plan Assessmemt and Plan Problems Medical Problems: (1) DKA (diabetic ketoacidoses) Status: Acute (2) Pancreatitis Status: Acute (3) Sepsis Status: Acute Comment Review of Relevant I have reviewed the following items allyssa (where applicable) has been applied. Medications: Current Medications Medications (Trade) Dose Ordered Sig/Bhupinder Route PRN Reason Start Time Stop Time Status Last Admin Dose Admin Insulin Human Lispro (HumaLOG) 6 units TIDAC SQ 10/22/20 11:30 10/23/20 07:30 Sodium Chloride 1,000 ml @ 100 mls/hr Q10H IV 10/22/20 11:00 10/23/20 09:08 Ondansetron HCl (Zofran) 4 mg PRN Q6HRS PRN IVP NAUSEA/VOMITING 10/22/20 11:00 10/23/20 09:25 Acetaminophen (Tylenol) 650 mg PRN Q6HRS PRN PO MILD PAIN / TEMP > 100.3'F 10/22/20 11:00 10/23/20 09:48 Potassium Chloride (Klor-Con) 20 meq 1X ONCE PO 10/22/20 14:45 10/22/20 14:46 DC 10/22/20 15:40 Potassium Chloride (Klor-Con) 40 meq 1X ONCE PO 10/23/20 06:00 10/23/20 06:01 DC 10/23/20 06:00 Potassium Chloride (Klor-Con) 40 meq 1X ONCE PO 10/23/20 10:00 10/23/20 10:01 10/23/20 09:06 Justifications for Admission Other Justification NORMA WOODY MD October 23, 2020 10:54
[2020-10-23] MEDS ORDERED: MAGNESIUM SULFATE 2GM 50 ML IV ONE (11:00)
[2020-10-23] MEDS: KETOROLAC 15 MG/ML VIAL. IVP PRN ×2 (12:12→21:55)
[2020-10-23] MEDS: POTASSIUM CHLORIDE 10MEQ 100 ML IV SCH ×2 (12:12→18:43)
[2020-10-23] MEDS ORDERED: POTASSIUM PHOS,M-BASIC-D-BASIC 13.6 MMOL in IV NORMAL SALINE 250ML 250 ML IV ONE (13:00)
[2020-10-23 15:00] VITALS: BP 115/62
[2020-10-23] MEDS: ENOXAPARIN 40 MG/0.4 ML SYRINGE. SQ SCH (18:09)
[2020-10-23 19:00] VITALS: BP 108/65
[2020-10-23] MEDS ORDERED: IBUPROFEN 400 MG TABLET. PO ONE (20:15)
--- NOTE | 2020-10-23 20:24 | NUR ---
Not completed today, pt did not want to do at that time. Was not feeling good all shift Addendum: 10/23/20 at 2025 by JENISE MICHAELS LPN LPN Amended: Links added.
[2020-10-23] MEDS: INSULIN GLARGINE SYRINGE. SQ SCH (21:01)
[2020-10-23 21:04] LABS: CALCIUM 8.1 mg/dL (8.5-10.1); CREATININE 0.7 mg/dL (0.6-1.0); GFR 109.5; POTASSIUM 3.1 mmol/L (3.5-5.1)
[2020-10-23 23:00] VITALS: BP 111/64
[2020-10-24 03:00] VITALS: BP 97/67
[2020-10-24 03:11] LABS: HEMOGLOBIN A1C 13.7 % (4.8-5.6)
[2020-10-24] MEDS: IV NORMAL SALINE 1000ML BAG 1,000 ML IV SCH ×3 (03:24→23:07)
[2020-10-24] MEDS: ACETAMINOPHEN 325 MG TABLET. PO PRN ×3 (03:36→21:18)
[2020-10-24 07:00] VITALS: BP 106/68
[2020-10-24] MEDS ORDERED: 0.9 % SODIUM CHLORIDE 10 ML DISP.SYRIN. IV PRN ×3 (07:45)
[2020-10-24] MEDS: ONDANSETRON PF 4 MG/2 ML VIAL. IVP PRN ×2 (08:13→12:21)
[2020-10-24] MEDS: KETOROLAC 15 MG/ML VIAL. IVP PRN ×3 (08:13→21:18)
[2020-10-24] MEDS: INSULIN LISPRO 300 UNITS/3 ML VIAL. SQ SCH ×6 (08:32→17:46)
[2020-10-24 08:53] LABS: MAGNESIUM 2.2 mg/dL (1.8-2.4); PHOSPHORUS 2.7 mg/dL (2.6-4.7)
[2020-10-24] MEDS ORDERED: LIDOCAINE WITH 8.4% SOD BICARB 3 ML DISP.SYRIN. INJ ONE (09:30)
[2020-10-24 09:58] LABS: CREATININE 0.6 mg/dL (0.6-1.0); GFR 130.8; POTASSIUM 3.7 mmol/L (3.5-5.1)
--- NOTE | 2020-10-24 10:00 | NUR ---
PICC line cancelled by Dr. Gimenez. Plans to change IV antibiotic to po.
[2020-10-24 11:00] VITALS: BP 113/69
[2020-10-24] MEDS: AMOXICILLIN/K CLAV 875/125MG TABLET. PO SCH ×2 (11:57→21:23)
--- NOTE | 2020-10-24 11:58 | PDOC ---
[employer] PROGRESS NOTE Date of Service DOS: DATE: 10/24/20 TIME: 11:51 Chief Complaint Chief Complaint A/P: DKA - acute acidosis, blood sugar almost 900 Anxiety disorder - ativan PRN Anemia - Dehydration - History of Present Illness History of Present Illness Pt was seen and examined at bed side DAVION RN DAVION [employer] Entertainer Chart Reviewed Ms Zamarripa is 45yo F w/ PMHx anemia, uterine fibroids who presented to the ED via EMS from home due to progressive weakness with 8-10 episodes of diarrhea and emesis. She was unable to lift her arms or legs. She had a headache 710 as well as some nominal pain 7 out of 10. She had just recently finished treatment with amoxicillin and Medrol for dental caries last week. Very tearful she has no history that she knows of high blood sugar or diabetes. She follows at [facility]. Initially admitted to the ICU on DKA protocol with glucose over 900. 10/22: Up and trying to eat, some anxiety and very emotional still. Went up on meal dose insulin. Transfer out of ICU. Bolus additional 1 liter NS Glucose in 200s K2.9. Still with abdominal pain today. D/w father bedside. Replace phos, mag, K Vitals/I&O Vitals/I&O: Vital Signs Date Time Temp Pulse Resp B/P (MAP) Pulse Ox O2 Delivery O2 Flow Rate FiO2 10/24/20 11:00 98.1 103 20 113/69 (84) 99 Room Air 98.1 Physical Exam General: Alert, Oriented X3, Cooperative, mild distress Heart: Regular rate Extremities: No clubbing, No edema, Normal pulses Skin: No breakdown Labs Labs: Laboratory Tests Test 10/23/20 11:57 10/23/20 15:07 10/23/20 17:20 10/23/20 20:24 Glucose (Fingerstick) 261 mg/dL (70-99) 290 mg/dL (70-99) 247 mg/dL (70-99) SARS-CoV-2 Antigen (Rapid) Negative (NEGATIVE) Test 10/23/20 20:40 10/24/20 06:45 10/24/20 07:44 10/24/20 11:18 Sodium Level 138 mmol/L (136-145) 143 mmol/L (136-145) Potassium Level 3.1 mmol/L (3.5-5.1) 3.7 mmol/L (3.5-5.1) Chloride Level 105 mmol/L (98-107) 107 mmol/L (98-107) Carbon Dioxide Level 24 mmol/L (21-32) 21 mmol/L (21-32) Anion Gap 9 (6-14) 15 (6-14) Blood Urea Nitrogen 6 mg/dL (7-20) 8 mg/dL (7-20) Creatinine 0.7 mg/dL (0.6-1.0) 0.6 mg/dL (0.6-1.0) Estimated GFR (Cockcroft-Gault) 109.5 130.8 Glucose Level 265 mg/dL (70-99) 294 mg/dL (70-99) Lactic Acid Level 1.1 mmol/L (0.4-2.0) Calcium Level 8.1 mg/dL (8.5-10.1) 8.0 mg/dL (8.5-10.1) Phosphorus Level 2.7 mg/dL (2.6-4.7) Magnesium Level 2.2 mg/dL (1.8-2.4) Glucose (Fingerstick) 263 mg/dL (70-99) 343 mg/dL (70-99) Review of Systems Review of Systems: No Weakness, No no acute changes in vision, no numbness or tingling of the extremities Assessment and Plan Assessmemt and Plan Assessment: DKA - acute acidosis, blood sugar almost 900 Anxiety disorder - ativan PRN Anemia - Dehydration - Plan: Start Augmentin 875 PO BID Adjust Insulin Potassium Home Medications Start 20mg Prozac qday Trend labs DVT PPx Full Code Comment Review of Relevant I have reviewed the following items allyssa (where applicable) has been applied. Medications: Current Medications Medications (Trade) Dose Ordered Sig/Bhupinder Route PRN Reason Start Time Stop Time Status Last Admin Dose Admin Potassium Phosphate 13.6 mmol/Sodium Chloride 254.5333 ml @ 127.... 1X ONCE IV 10/23/20 13:00 10/23/20 14:59 DC 10/23/20 23:14 Ibuprofen (Motrin) 400 mg 1X ONCE PO 10/23/20 20:15 10/23/20 20:16 DC 10/23/20 21:00 Levofloxacin/ Dextrose 100 ml @ 100 mls/hr 1X ONCE IV 10/23/20 21:00 5/2/21 21:59 DC 10/23/20 20:27 Justifications for Admission Other Justification PRICE OSWALD III DO October 24, 2020 11:58
--- NOTE | 2020-10-24 13:15 | NUR ---
SW following. Discussed with RN, pt from home, room air, ada diet, COVID-19 negative. PICC line being placed due to poor access. PT/OT recommending home. Blood cultures pending. RN advised no SW needs at this time. SW will continue to follow.
[2020-10-24 15:00] VITALS: BP 126/66
--- NOTE | 2020-10-24 15:15 | NUR ---
c/o being chilly. Low grade temp 100.9. Tylenol given. Cont. monitor.
[2020-10-24] MEDS: ENOXAPARIN 40 MG/0.4 ML SYRINGE. SQ SCH (15:20)
--- NOTE | 2020-10-24 16:00 | NUR ---
Still having severl loose stools with foul odder. Poor appetite. States gets nauseated zofran given. But drinking lots water. Over 1000cc. cont. monitor.
[2020-10-24 19:00] VITALS: BP 121/67
[2020-10-24] MEDS: LACTOBACILLUS RHAMNOSUS GG 1 CAPSULE. PO SCH (21:23)
[2020-10-24] MEDS: INSULIN GLARGINE SYRINGE. SQ SCH (21:24)
--- NOTE | 2020-10-24 22:05 | NUR ---
Pt began complaining of chest pain and shortness of breath. RN contacted ICU to see about callling a rapid, PAEDODONTIST stated to get a 12 lead EKG. While getting RT for EKG, shobha house was called by tech because daughter stated she was not breathing. When RN made it to room, pt was unconscious to voice but woke to sternal rub. Pt did have a pulse and breath sounds upon arriving as well. O2 sat was obtained and was 98% on room air. After EKG was done it showed sinus tach with no abnormalities. Gave pt Tylenol and Toradol for the fever. Will continue to monitor
--- NOTE | 2020-10-24 22:21 | EKG ---
[facility] [address] [place] [address] Test Date: 2020-10-24 Test Time: 21:11:05 Pat Name: VERONICA LOONEY Department: Room: 444 Gender: F Project Management Specialist: RAJENDRA : 1975 Requested By: MESFIN PIZARRO Order Number: [id number] Reading MD: Measurements Intervals [place] Rate: 120 P: -170 MD: 132 QRS: 0 QRSD: 74 T: 42 QT: 360 QTc: 514 Interpretive Statements SINUS TACHYCARDIA LEFTWARD AXIS NO SPECIFIC ECG ABNORMALITIES RI6.01 No previous ECG available for comparison
[2020-10-24 23:00] VITALS: BP 115/61
--- NOTE | 2020-10-24 23:00 | NUR ---
Was called to see patient for c/o chest pain and SOA. RN was to get a 12 lead EKG. While going to the unit a Code Joe was called by the DROSOPHERE OPERATOR. Upon arrival pt was lethargic but responding. She never lost a pulse according to her nurse. Loren house was cancelled and the Nursing Molding Sander and I worked at reassuring the patient that her vital signs were perfect and her rapid heart rate was due to to her fever. Tylenol was given and patient will be monitored tonight.
[2020-10-25 03:00] VITALS: BP 121/75
[2020-10-25] MEDS: ACETAMINOPHEN 325 MG TABLET. PO PRN ×3 (03:59→20:33)
[2020-10-25 05:00] LABS: BASO % 0 % (0-3); EOS # 0.1 x10^3/uL (0.0-0.7); EOS % 2 % (0-3); HEMATOCRIT 31.3 % (36.0-47.0); HEMOGLOBIN 9.9 g/dL (12.0-15.5); LYMPH # 0.5 x10^3/uL (1.0-4.8); LYMPH % 7 % (24-48); MEAN CORPUSCULAR HEMOGLOBIN 25 pg (25-35); MEAN CORPUSCULAR HGB CONC 32 g/dL (31-37); MEAN CORPUSCULAR VOLUME 80 fL (79-100); MONO # 1.6 x10^3/uL (0.0-1.1); MONO % 23 % (0-9); NEUT # 4.9 x10^3/uL (1.8-7.7); NEUT % 69 % (31-73); PLATELET COUNT 302 x10^3/uL (140-400); RED BLOOD COUNT 3.92 x10^6/uL (3.50-5.40); RED CELL DISTRIBUTION WIDTH 14.2 % (11.5-14.5); WHITE BLOOD COUNT 7.1 x10^3/uL (4.0-11.0)
[2020-10-25 06:04] LABS: CALCIUM 7.8 mg/dL (8.5-10.1); CREATININE 0.6 mg/dL (0.6-1.0); GFR 130.8
[2020-10-25 06:08] LABS: POTASSIUM 2.9 mmol/L (3.5-5.1)
[2020-10-25] MEDS ORDERED: POTASSIUM CHLORIDE 20 MEQ TABLET.ER. PO ONE ×2 (06:45→12:00)
[2020-10-25 07:00] VITALS: BP 115/67
[2020-10-25 08:58] LABS: % BANDS 47 % (0-9); % EOS 2 % (0-5); % LYMPHS 10 % (24-48); % METAS 11 % (0-0); % MONOS 16 % (0-10); % MYELOS 2 % (0-0); % SEGS 12 % (35-66)
[2020-10-25 08:59] LABS: PLT ESTIMATE ADEQUATE (ADEQUATE)
[2020-10-25] MEDS: INSULIN LISPRO 300 UNITS/3 ML VIAL. SQ SCH ×6 (09:00→17:00)
[2020-10-25] MEDS: AMOXICILLIN/K CLAV 875/125MG TABLET. PO SCH ×2 (10:08→20:32)
[2020-10-25] MEDS: LACTOBACILLUS RHAMNOSUS GG 1 CAPSULE. PO SCH ×2 (10:08→20:32)
[2020-10-25] MEDS: IV NORMAL SALINE 1000ML BAG 1,000 ML IV SCH ×2 (10:45→19:18)
[2020-10-25 11:02] VITALS: BP 123/72
--- NOTE | 2020-10-25 11:47 | PDOC ---
[employer] PROGRESS NOTE Date of Service DOS: DATE: 10/25/20 TIME: 11:42 Chief Complaint Chief Complaint Nausea, vomiting, fever, and weakness. Found to be in DKA (blood sugar 900). History of Present Illness History of Present Illness Pt was seen and examined at bed side DAVION RN DAVION Spindle Sander Chart Reviewed Ms Zamarripa is 45yo F w/ PMHx anemia, uterine fibroids who presented to the ED via EMS from home due to progressive weakness with 8-10 episodes of diarrhea and emesis. She was unable to lift her arms or legs. She had a headache 710 as well as some nominal pain 7 out of 10. She had just recently finished treatment with amoxicillin and Medrol for dental caries last week. Very tearful she has no history that she knows of high blood sugar or diabetes. She follows at [facility]. Initially admitted to the ICU on DKA protocol with glucose over 900. 10/25/2020: Pt. was seen and examined at bedside. Discussed case with RN. Discussed case with spring encaser. The chart was reviewed. There was a code blue call last night, however, the pt. was found to be stable. This morning she was tired, weak, and tachycardic (HR: 119). She has no new concerns or complaints. The pt.'s mood appeared to be improved from yesterday. 10/22: Up and trying to eat, some anxiety and very emotional still. Went up on meal dose insulin. Transfer out of ICU. Bolus additional 1 liter NS Glucose in 200s K2.9. Still with abdominal pain today. D/w father bedside. Replace phos, mag, K Vitals/I&O Vitals/I&O: Vital Signs Date Time Temp Pulse Resp B/P (MAP) Pulse Ox O2 Delivery O2 Flow Rate FiO2 10/25/20 11:02 102.4 122 18 123/72 (89) 98 Room Air 102.4 I & O 10/24/20 10/24/20 10/25/20 15:00 23:00 07:00 Intake Total 240 ml Output Total 350 ml Balance -110 ml Physical Exam General: Alert, Oriented X3, Cooperative, No acute distress, mild distress, Other (General affect was improved from yesetday) Heart: Regular rate Abdomen: No tenderness Extremities: No clubbing, No cyanosis, No edema, Normal pulses Skin: No breakdown Labs Labs: Laboratory Tests Test 10/24/20 16:25 10/25/20 04:50 10/25/20 07:21 10/25/20 11:09 Glucose (Fingerstick) 297 mg/dL (70-99) 196 mg/dL (70-99) 188 mg/dL (70-99) White Blood Count 7.1 x10^3/uL (4.0-11.0) Red Blood Count 3.92 x10^6/uL (3.50-5.40) Hemoglobin 9.9 g/dL (12.0-15.5) Hematocrit 31.3 % (36.0-47.0) Mean Corpuscular Volume 80 fL (79-100) Mean Corpuscular Hemoglobin 25 pg (25-35) Mean Corpuscular Hemoglobin Concent 32 g/dL (31-37) Red Cell Distribution Width 14.2 % (11.5-14.5) Platelet Count 302 x10^3/uL (140-400) Neutrophils (%) (Auto) 69 % (31-73) Lymphocytes (%) (Auto) 7 % (24-48) Monocytes (%) (Auto) 23 % (0-9) Eosinophils (%) (Auto) 2 % (0-3) Basophils (%) (Auto) 0 % (0-3) Neutrophils # (Auto) 4.9 x10^3/uL (1.8-7.7) Lymphocytes # (Auto) 0.5 x10^3/uL (1.0-4.8) Monocytes # (Auto) 1.6 x10^3/uL (0.0-1.1) Eosinophils # (Auto) 0.1 x10^3/uL (0.0-0.7) Basophils # (Auto) 0.0 x10^3/uL (0.0-0.2) Segmented Neutrophils % 12 % (35-66) Band Neutrophils % 47 % (0-9) Lymphocytes % 10 % (24-48) Monocytes % 16 % (0-10) Eosinophils % 2 % (0-5) Metamyelocytes % 11 % (0-0) Myelocytes % 2 % (0-0) Dohle Bodies Present Platelet Estimate Adequate (ADEQUATE) Sodium Level 139 mmol/L (136-145) Potassium Level 2.9 mmol/L (3.5-5.1) Chloride Level 104 mmol/L (98-107) Carbon Dioxide Level 21 mmol/L (21-32) Anion Gap 14 (6-14) Blood Urea Nitrogen 4 mg/dL (7-20) Creatinine 0.6 mg/dL (0.6-1.0) Estimated GFR (Cockcroft-Gault) 130.8 Glucose Level 239 mg/dL (70-99) Calcium Level 7.8 mg/dL (8.5-10.1) Review of Systems Review of Systems: No chest pain, SOB, acute changes in vision, or headaches. Assessment and Plan Assessmemt and Plan Assessment: DKA - acute acidosis, blood sugar almost 900 Anxiety disorder - ativan PRN Anemia - Dehydration - Plan: Continue Augmentin 875 PO BID Adjust Insulin Potassium PO or IV as tolerated by the pt. IV Fluids Home Medications Continue 20mg Prozac qday Trend labs (CBC/CMP) DVT PPx Encourage PO Intake Cardiac Monitoring Full Code Comment Review of Relevant I have reviewed the following items allyssa (where applicable) has been applied. Medications: Current Medications Medications (Trade) Dose Ordered Sig/Bhupinder Route PRN Reason Start Time Stop Time Status Last Admin Dose Admin Lactobacillus Rhamnosus (Culturelle) 1 cap BID PO 10/24/20 21:00 10/25/20 10:08 Potassium Chloride (Klor-Con) 40 meq 1X ONCE PO 10/25/20 06:45 10/25/20 06:50 DC 10/25/20 07:03 Justifications for Admission Other Justification PRICE OSWALD III DO October 25, 2020 11:47
[2020-10-25] MEDS ORDERED: POTASSIUM BICARB 20 MEQ EFFERVESCENT TABLET. PO ONE (12:00)
[2020-10-25 14:47] VITALS: BP 126/65
[2020-10-25] MEDS: POTASSIUM CHLORIDE 10MEQ 100 ML IV SCH ×4 (15:35→20:32)
[2020-10-25] MEDS: ENOXAPARIN 40 MG/0.4 ML SYRINGE. SQ SCH (16:24)
[2020-10-25 19:35] VITALS: BP 118/71
[2020-10-25] MEDS: KETOROLAC 15 MG/ML VIAL. IVP PRN (20:33)
[2020-10-25] MEDS: INSULIN GLARGINE SYRINGE. SQ SCH (21:25)
[2020-10-25 23:09] VITALS: BP 97/57
[2020-10-26] VITALS (16 sets, daily range): BP systolic 95–131; BP diastolic 53–75
[2020-10-26] MEDS: IV NORMAL SALINE 1000ML BAG 1,000 ML IV SCH ×2 (05:06→17:03)
[2020-10-26] MEDS: KETOROLAC 15 MG/ML VIAL. IVP PRN ×2 (05:18→09:33)
[2020-10-26 07:21] LABS: BASO % 0 % (0-3); EOS # 0.1 x10^3/uL (0.0-0.7); EOS % 1 % (0-3); HEMATOCRIT 30.3 % (36.0-47.0); HEMOGLOBIN 9.7 g/dL (12.0-15.5); LYMPH # 0.4 x10^3/uL (1.0-4.8); LYMPH % 7 % (24-48); MEAN CORPUSCULAR HEMOGLOBIN 25 pg (25-35); MEAN CORPUSCULAR HGB CONC 32 g/dL (31-37); MEAN CORPUSCULAR VOLUME 79 fL (79-100); MONO # 1.5 x10^3/uL (0.0-1.1); MONO % 25 % (0-9); NEUT # 3.9 x10^3/uL (1.8-7.7); NEUT % 66 % (31-73); PLATELET COUNT 350 x10^3/uL (140-400); RED BLOOD COUNT 3.84 x10^6/uL (3.50-5.40); RED CELL DISTRIBUTION WIDTH 14.1 % (11.5-14.5); WHITE BLOOD COUNT 5.9 x10^3/uL (4.0-11.0)
[2020-10-26] MEDS: INSULIN LISPRO 300 UNITS/3 ML VIAL. SQ SCH ×6 (07:30→17:06)
[2020-10-26 07:48] LABS: CALCIUM 7.9 mg/dL (8.5-10.1); CREATININE 0.5 mg/dL (0.6-1.0); GFR 161.4
[2020-10-26] MEDS ORDERED: POTASSIUM BICARB 20 MEQ EFFERVESCENT TABLET. PO ONE (08:30)
--- NOTE | 2020-10-26 08:54 | PDOC ---
[employer] PROGRESS NOTE Date of Service DOS: DATE: 10/26/20 TIME: 08:51 Chief Complaint Chief Complaint Nausea, vomiting, fever, and weakness. Found to be in DKA (blood sugar 900). History of Present Illness History of Present Illness Ms Zamarripa is 45yo F w/ PMHx anemia, uterine fibroids who presented to the ED via EMS from home due to progressive weakness with 8-10 episodes of diarrhea and emesis. She was unable to lift her arms or legs. She had a headache 710 as well as some nominal pain 7 out of 10. She had just recently finished treatment with amoxicillin and Medrol for dental caries last week. Very tearful she has no history that she knows of high blood sugar or diabetes. She follows at [facility]. Initially admitted to the ICU on DKA protocol with glucose over 900. 10/26/2020: Pt. was seen and examined at bedside. Discussed case with RN. Discussed case with case supervisor. The chart was reviewed. She has no new concerns or complaints. The pt.'s mood appeared to be improved from yesterday. She was resting comfortably when we saw her. She states her diarrhea has not improved since she was admitted. She is negative for C. diff. 10/25/2020: Pt. was seen and examined at bedside. Discussed case with RN. Discussed case with case supervisor. The chart was reviewed. There was a code blue call last night, however, the pt. was found to be stable. This morning she was tired, weak, and tachycardic (HR: 119). She has no new concerns or complaints. The pt.'s mood appeared to be improved from yesterday. 10/22: Up and trying to eat, some anxiety and very emotional still. Went up on meal dose insulin. Transfer out of ICU. Bolus additional 1 liter NS Glucose in 200s K2.9. Still with abdominal pain today. D/w father bedside. Replace phos, mag, K Vitals/I&O Vitals/I&O: Vital Signs Date Time Temp Pulse Resp B/P (MAP) Pulse Ox O2 Delivery O2 Flow Rate FiO2 10/26/20 07:19 99.1 115 18 115/62 (79) 98 Room Air 99.1 I & O 10/25/20 10/25/20 10/26/20 15:00 23:00 07:00 Intake Total 300 ml 1320 ml Balance 300 ml 1320 ml Physical Exam General: Alert, Oriented X3, Cooperative, No acute distress, mild distress, Other (General affect was improved from yesetday) Heart: Regular rate Abdomen: No tenderness Extremities: No clubbing, No cyanosis, No edema, Normal pulses Skin: No rashes, No breakdown Labs Labs: Laboratory Tests Test 10/25/20 11:09 10/25/20 16:07 10/25/20 20:54 10/26/20 06:30 Glucose (Fingerstick) 188 mg/dL (70-99) 119 mg/dL (70-99) 181 mg/dL (70-99) White Blood Count 5.9 x10^3/uL (4.0-11.0) Red Blood Count 3.84 x10^6/uL (3.50-5.40) Hemoglobin 9.7 g/dL (12.0-15.5) Hematocrit 30.3 % (36.0-47.0) Mean Corpuscular Volume 79 fL (79-100) Mean Corpuscular Hemoglobin 25 pg (25-35) Mean Corpuscular Hemoglobin Concent 32 g/dL (31-37) Red Cell Distribution Width 14.1 % (11.5-14.5) Platelet Count 350 x10^3/uL (140-400) Neutrophils (%) (Auto) 66 % (31-73) Lymphocytes (%) (Auto) 7 % (24-48) Monocytes (%) (Auto) 25 % (0-9) Eosinophils (%) (Auto) 1 % (0-3) Basophils (%) (Auto) 0 % (0-3) Neutrophils # (Auto) 3.9 x10^3/uL (1.8-7.7) Lymphocytes # (Auto) 0.4 x10^3/uL (1.0-4.8) Monocytes # (Auto) 1.5 x10^3/uL (0.0-1.1) Eosinophils # (Auto) 0.1 x10^3/uL (0.0-0.7) Basophils # (Auto) 0.0 x10^3/uL (0.0-0.2) Sodium Level 138 mmol/L (136-145) Potassium Level 3.0 mmol/L (3.5-5.1) Chloride Level 103 mmol/L (98-107) Carbon Dioxide Level 20 mmol/L (21-32) Anion Gap 15 (6-14) Blood Urea Nitrogen 3 mg/dL (7-20) Creatinine 0.5 mg/dL (0.6-1.0) Estimated GFR (Cockcroft-Gault) 161.4 Glucose Level 187 mg/dL (70-99) Calcium Level 7.9 mg/dL (8.5-10.1) Test 10/26/20 07:02 Glucose (Fingerstick) 185 mg/dL (70-99) Review of Systems Review of Systems: No chest pain, headaches, acute changes in vision, or headaches. Assessment and Plan Assessmemt and Plan Assessment: 45 year old female with: DKA - acute acidosis, blood sugar almost 900 Anxiety disorder - ativan PRN Anemia - Dehydration - Plan: Consult GI, specialist input appreciated Continue Augmentin 875 PO BID possibly start Flagyl Adjust Insulin Potassium PO or IV as tolerated by the pt. IV Fluids Home Medications Continue 20mg Prozac qday Trend labs (CBC/CMP) DVT PPx Encourage PO Intake Cardiac Monitoring Full Code Comment Review of Relevant I have reviewed the following items allyssa (where applicable) has been applied. Medications: Current Medications Medications (Trade) Dose Ordered Sig/Bhupinder Route PRN Reason Start Time Stop Time Status Last Admin Dose Admin Potassium Bicarbonate (Potassium Effervescent Tablet) 40 meq 1X ONCE PO 10/25/20 12:00 10/25/20 12:01 DC 10/25/20 11:58 Potassium Chloride (Klor-Con) 40 meq 1X ONCE PO 10/25/20 12:00 10/25/20 12:10 DC 10/25/20 12:00 Potassium Chloride/Water 100 ml @ 100 mls/hr Q1H IV 10/25/20 15:30 10/25/20 19:29 DC 10/25/20 20:32 Justifications for Admission Other Justification PRICE OSWALD III DO October 26, 2020 08:54
[2020-10-26] MEDS: AMOXICILLIN/K CLAV 875/125MG TABLET. PO SCH (09:17)
[2020-10-26] MEDS: LACTOBACILLUS RHAMNOSUS GG 1 CAPSULE. PO SCH ×2 (09:17→20:48)
[2020-10-26] MEDS: LOPERAMIDE 2 MG CAPSULE PO PRN (09:17)
[2020-10-26] MEDS: ONDANSETRON PF 4 MG/2 ML VIAL. IVP PRN ×2 (09:33→17:21)
[2020-10-26] MEDS: ACETAMINOPHEN 325 MG TABLET. PO PRN ×3 (09:34→20:44)
--- NOTE | 2020-10-26 10:24 | NUR ---
Pt cont to have incontinent diarrhea that is light brown. She c/o cramping in her lower ABD that felt like labor pains. Pt then will have a fever. HR cont to be in the 120's. She is very emotional and cries while this nurse is in the room asking "what is wrong with me, am I dying." This nurse gives her emotional support and she eventually calms down. GI will consult in regards to uncontrolled diarrhea. She also has a hard time swallowing pills, has had emesis this AM while trying to swallow them
--- NOTE | 2020-10-26 12:00 | NUR ---
Pt febrile and tachycardic. Paged Dr. Gimenez and received orders for consult to ID and IV abx.
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
[2020-10-26] MEDS ORDERED: VANCOMYCIN PER PHARMACY MC PRN (12:45)
[2020-10-26] MEDS ORDERED: PIP/TAZO PER PHARMACY MC PRN (12:45)
[2020-10-26] MEDS ORDERED: VANCOMYCIN 1.5 GM in IV NORMAL SALINE 500ML BAG 500 ML IV ONE (14:00)
--- NOTE | 2020-10-26 14:03 | PDOC ---
Infectious Disease Note Vital Sign Vital Signs Vital Signs Date Time Temp Pulse Resp B/P (MAP) Pulse Ox O2 Delivery O2 Flow Rate FiO2 10/26/20 10:37 101.3 126 18 123/71 (88) 96 Room Air 101.3 Labs Lab Laboratory Tests Test 10/25/20 16:07 10/25/20 20:54 10/26/20 06:30 10/26/20 07:02 Glucose (Fingerstick) 119 mg/dL (70-99) 181 mg/dL (70-99) 185 mg/dL (70-99) White Blood Count 5.9 x10^3/uL (4.0-11.0) Red Blood Count 3.84 x10^6/uL (3.50-5.40) Hemoglobin 9.7 g/dL (12.0-15.5) Hematocrit 30.3 % (36.0-47.0) Mean Corpuscular Volume 79 fL (79-100) Mean Corpuscular Hemoglobin 25 pg (25-35) Mean Corpuscular Hemoglobin Concent 32 g/dL (31-37) Red Cell Distribution Width 14.1 % (11.5-14.5) Platelet Count 350 x10^3/uL (140-400) Neutrophils (%) (Auto) 66 % (31-73) Lymphocytes (%) (Auto) 7 % (24-48) Monocytes (%) (Auto) 25 % (0-9) Eosinophils (%) (Auto) 1 % (0-3) Basophils (%) (Auto) 0 % (0-3) Neutrophils # (Auto) 3.9 x10^3/uL (1.8-7.7) Lymphocytes # (Auto) 0.4 x10^3/uL (1.0-4.8) Monocytes # (Auto) 1.5 x10^3/uL (0.0-1.1) Eosinophils # (Auto) 0.1 x10^3/uL (0.0-0.7) Basophils # (Auto) 0.0 x10^3/uL (0.0-0.2) Sodium Level 138 mmol/L (136-145) Potassium Level 3.0 mmol/L (3.5-5.1) Chloride Level 103 mmol/L (98-107) Carbon Dioxide Level 20 mmol/L (21-32) Anion Gap 15 (6-14) Blood Urea Nitrogen 3 mg/dL (7-20) Creatinine 0.5 mg/dL (0.6-1.0) Estimated GFR (Cockcroft-Gault) 161.4 Glucose Level 187 mg/dL (70-99) Calcium Level 7.9 mg/dL (8.5-10.1) Iron Level 68 ug/dL (50-170) Total Iron Binding Capacity 329 ug/dL (250-450) Iron Saturation 21 % (15-34) Test 10/26/20 11:03 Glucose (Fingerstick) 208 mg/dL (70-99) Micro Microbiology 10/23/20 Blood Culture - Preliminary, Resulted NO GROWTH AFTER 2 DAYS Objective Assessment Fever ? colitis with loose stools DKA PCN allergy - hives and throat swelling but tolerates Amoxicillin Heart murmur Recent dental cleaning with pre Amox Just finished steroids Plan Plan of Care Repeat Blood cults Check lipase/TSH/LFTs Disc Vanc and begin Dapto Cont Zosyn Add Fluconazole/Flagyl IV with GI issues Repeat C-diff Consider repeat CT but wait GI follow up D/w family Thank you # [phone] LANDY GUZMÁN MD October 26, 2020 14:03
[2020-10-26] MEDS: FLUCONAZOLE 400MG/200ML PREMIX 200 ML IV SCH ×2 (14:28→21:28)
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
--- NOTE | 2020-10-26 14:45 | NUR ---
Temp 102.[address] Gimenez received orders to transfer to tele.
[2020-10-26] MEDS: ENOXAPARIN 40 MG/0.4 ML SYRINGE. SQ SCH (15:00)
[2020-10-26] MEDS ORDERED: DAPTOmycin (GENERIC) IVPB 390 MG in IV NORMAL SALINE 50ML 50 ML IV SCH (15:00)
[2020-10-26 15:03] LABS: ALBUMIN 1.5 g/dL (3.4-5.0); DIRECT BILIRUBIN 0.1 mg/dL (0.0-0.2); TOTAL BILIRUBIN 0.3 mg/dL (0.2-1.0); TOTAL PROTEIN 5.4 g/dL (6.4-8.2)
--- NOTE | 2020-10-26 15:30 | NUR ---
Patient transfer from 4th floor. Upon admission BP wnl, HR in the 130's, O2 sat 98% on RA with a temp of 103.3. PICC team here to place PICC. Lactic 1.2. ABX administered, patient stable with family bedside. transfer report from Radha Livingston. Will monitor
--- NOTE | 2020-10-26 15:30 | NUR ---
While pt was walking with PT started c/o SOA and chest tightness. Pt assisted to chair. O2 99 HR 160. Rapid called. Pt was assisted to bed and taken to room. EKG ordered. Xochitl regalado in room stated pt will transfer to room 110. Belongings were walked down to room. Report given to DAIJA Santana.
--- NOTE | 2020-10-26 15:55 | NUR ---
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
--- NOTE | 2020-10-26 16:37 | NUR ---
PICC insertion noteProcedure: Following complete explanation of the PICC procedure including the indications, risks, and potential complications, informed consent was obtained. The possibility for infection was discussed along with signs, symptoms, and prevention. All the questions were answered. Written and verbal patient education was provided. Hand hygiene performed. Standardized central line checklist was utilized. The patient was placed in the supine position, the arm was prepped with chlorhexidine and patient draped with maximum sterile barrier. 5 mL 1% lidocaine was infiltrated into the skin to provide local anesthesia. A thorough assessment of right upper extremity completed. Using real-time ultrasound guidance and standardized micro puncture set, the brachial vein was punctured and a peel away sheath was placed using the modified Seldinger technique. A tip location device was used to ensure adequate catheter placement. The catheter was secured using a securement device and an antimicrobial patch was applied directly on the insertion site followed by a transparent dressing. All ports withdraw blood and flush without resistance. Patient tolerated the procedure without apparent complication(s). triple Lumen Power PICC placement successful and uncomplicated. Placement verified by EKG tip confirmation system and/or chest x-ray. Tip located in the CAJ/SVC Complications: NONE Addendum: 10/26/20 at 1702 by АНДРЕЙ HERNANDEZ RN Amended: Links added.
--- NOTE | 2020-10-26 17:06 | RAD ---
Exam: Chest one view INDICATION: PICC placement TECHNIQUE: Frontal view of the chest Comparisons: 10/21/2020 FINDINGS: Right-sided PICC with tip at the SVC. The cardiomediastinal silhouette and pulmonary vessels are within normal limits. The lung and pleural spaces are clear. IMPRESSION: Lines and tubes described above. Electronically signed by: Naheed Campo MD (10/26/2020 5:04 PM) EKATERINA
[2020-10-26 17:09] LABS: ALBUMIN 1.5 g/dL (3.4-5.0); ALBUMIN/GLOBULIN RATIO 0.5 (1.0-1.7); CALCIUM 7.5 mg/dL (8.5-10.1); CREATININE 0.6 mg/dL (0.6-1.0); GFR 130.8; POTASSIUM 3.4 mmol/L (3.5-5.1); TOTAL BILIRUBIN 0.3 mg/dL (0.2-1.0); TOTAL PROTEIN 4.5 g/dL (6.4-8.2)
[2020-10-26] MEDS: PIPERACILLIN/TAZOBACTAM 3.375 GM in IV NORMAL SALINE 50ML 50 ML IV SCH ×2 (17:49→23:45)
[2020-10-26] MEDS: INSULIN GLARGINE SYRINGE. SQ SCH (20:58)
[2020-10-27] VITALS (13 sets, daily range): BP systolic 96–120; BP diastolic 50–74
[2020-10-27] MEDS: IV NORMAL SALINE 1000ML BAG 1,000 ML IV SCH ×2 (01:00→15:00)
[2020-10-27] MEDS: LOPERAMIDE 2 MG CAPSULE PO PRN (04:24)
[2020-10-27 05:04] LABS: BASO % 0 % (0-3); EOS % 0 % (0-3); HEMATOCRIT 28.5 % (36.0-47.0); HEMOGLOBIN 9.1 g/dL (12.0-15.5); LYMPH # 0.7 x10^3/uL (1.0-4.8); LYMPH % 7 % (24-48); MEAN CORPUSCULAR HEMOGLOBIN 25 pg (25-35); MEAN CORPUSCULAR HGB CONC 32 g/dL (31-37); MEAN CORPUSCULAR VOLUME 80 fL (79-100); MONO # 1.9 x10^3/uL (0.0-1.1); MONO % 20 % (0-9); NEUT # 6.7 x10^3/uL (1.8-7.7); NEUT % 72 % (31-73); PLATELET COUNT 360 x10^3/uL (140-400); RED BLOOD COUNT 3.58 x10^6/uL (3.50-5.40); RED CELL DISTRIBUTION WIDTH 14.6 % (11.5-14.5); WHITE BLOOD COUNT 9.3 x10^3/uL (4.0-11.0)
[2020-10-27 05:11] LABS: CALCIUM 7.7 mg/dL (8.5-10.1); CREATININE 0.6 mg/dL (0.6-1.0); GFR 130.8; POTASSIUM 3.2 mmol/L (3.5-5.1)
[2020-10-27] MEDS: PIPERACILLIN/TAZOBACTAM 3.375 GM in IV NORMAL SALINE 50ML 50 ML IV SCH ×3 (05:34→17:16)
[2020-10-27] MEDS ORDERED: POTASSIUM CHLORIDE 20 MEQ TABLET.ER. PO ONE (07:15)
[2020-10-27] MEDS ORDERED: PANTOPRAZOLE 40 MG TABLET.DR. PO SCH (07:30)
[2020-10-27] MEDS: INSULIN LISPRO 300 UNITS/3 ML VIAL. SQ SCH ×6 (07:50→17:20)
[2020-10-27] MEDS: ONDANSETRON PF 4 MG/2 ML VIAL. IVP PRN (07:50)
--- NOTE | 2020-10-27 08:52 | PDOC ---
Date of Service: DATE: 10/27/20 TIME: 08:47 Subjective: Subjective: Cramping, bloating, diarrhea, vomiting. Wants something on her stomach but "spits up." Her mom is an HOSPICE CLINICAL MARKETER and thought maybe pills on an empty stomach weren't a good idea. Objective: Objective: D/w nurse - sent to ICU w/ tachycardia/fever, c/o SOA/CP when walking yesterday. Incontinent of stool, mixed with urine - can't get stool sample to send. C/o cramping abd pain before stooling. Vital Signs: Vital Signs Date Time Temp Pulse Resp B/P (MAP) Pulse Ox O2 Delivery O2 Flow Rate FiO2 10/27/20 08:00 Room Air 10/27/20 07:00 110 18 111/69 (83) 100 10/27/20 06:27 99.1 40.0 99.1 Labs: Laboratory Tests Test 10/26/20 11:03 10/26/20 16:37 10/26/20 17:05 10/26/20 20:54 Glucose (Fingerstick) 208 mg/dL 200 mg/dL 204 mg/dL Sodium Level 139 mmol/L Potassium Level 3.4 mmol/L Chloride Level 105 mmol/L Carbon Dioxide Level 24 mmol/L Anion Gap 10 Blood Urea Nitrogen 5 mg/dL Creatinine 0.6 mg/dL Estimated GFR (Cockcroft-Gault) 130.8 BUN/Creatinine Ratio 8 Glucose Level 179 mg/dL Lactic Acid Level 1.2 mmol/L Calcium Level 7.5 mg/dL Total Bilirubin 0.3 mg/dL Aspartate Amino Transf (AST/SGOT) 26 U/L Alanine Aminotransferase (ALT/SGPT) 15 U/L Alkaline Phosphatase 77 U/L Total Protein 4.5 g/dL Albumin 1.5 g/dL Albumin/Globulin Ratio 0.5 Test 10/27/20 04:45 10/27/20 07:49 White Blood Count 9.3 x10^3/uL Red Blood Count 3.58 x10^6/uL Hemoglobin 9.1 g/dL Hematocrit 28.5 % Mean Corpuscular Volume 80 fL Mean Corpuscular Hemoglobin 25 pg Mean Corpuscular Hemoglobin Concent 32 g/dL Red Cell Distribution Width 14.6 % Platelet Count 360 x10^3/uL Neutrophils (%) (Auto) 72 % Lymphocytes (%) (Auto) 7 % Monocytes (%) (Auto) 20 % Eosinophils (%) (Auto) 0 % Basophils (%) (Auto) 0 % Neutrophils # (Auto) 6.7 x10^3/uL Lymphocytes # (Auto) 0.7 x10^3/uL Monocytes # (Auto) 1.9 x10^3/uL Eosinophils # (Auto) 0.0 x10^3/uL Basophils # (Auto) 0.0 x10^3/uL Sodium Level 142 mmol/L Potassium Level 3.2 mmol/L Chloride Level 107 mmol/L Carbon Dioxide Level 21 mmol/L Anion Gap 14 Blood Urea Nitrogen 4 mg/dL Creatinine 0.6 mg/dL Estimated GFR (Cockcroft-Gault) 130.8 Glucose Level 206 mg/dL Calcium Level 7.7 mg/dL Creatine Kinase 31 U/L Glucose (Fingerstick) 202 mg/dL PE: GEN: up in chair LUNGS: CTAB HEART: tachycardia ABD: BS+, ?more distended, uncomfortable today NEURO/PSYCH: A & O 3, depressed A/P: Fever, tachycardia, diarrhea, abd cramping, n/v DKA - better Anemia - normal iron and b12 Abnormal CT - "mild diffuse colonic wall thickening" (underdistention vs colitis) Elevated lipase on admission - resolved, normal pancreas and GB on CT C Diff and COVID negative -- Repeat CT. Change to IV PPI. Hopefully able to collect stool for tests. Justicifation of Admission Dx: Justifications for Admission: Justification of Admission Dx: Yes SILVIA HARRIS October 27, 2020 08:52
[2020-10-27] MEDS: LACTOBACILLUS RHAMNOSUS GG 1 CAPSULE. PO SCH ×2 (09:01→20:44)
[2020-10-27] MEDS ORDERED: CONTRAST GIVEN. MC PRN (09:15)
[2020-10-27] MEDS ORDERED: IOHEXOL 300 MG/ML 100ML VIAL. IV ONE (09:15)
--- NOTE | 2020-10-27 09:31 | PDOC ---
Infectious Disease Note Subjective Subjective s/p rapid response. Apparently developed SOA and CP while walking with PT. temp 103, tachy. Transferred to ICU. c/o diarrhea with incontinence, abdominal distention, cramps and N/V. CT A/P has been ordered. ROS ROS as mentioned above otherwise neg Vital Sign Vital Signs Vital Signs Date Time Temp Pulse Resp B/P (MAP) Pulse Ox O2 Delivery O2 Flow Rate FiO2 10/27/20 08:00 98.6 111 16 112/68 (83) 100 Room Air 98.6 10/27/20 06:27 40.0 Physical Exam PHYSICAL EXAM CONSTITUTIONAL: Sitting in the chiar, alert, appears tired HEENT: Pupils equal and reactive. She does wear contacts. She has normal conjunctivae. Oral cavity, oropharynx, she has tongue piercing, otherwise oral cavity is clear. NECK: Supple. Good range of motion. No gross fullness. LUNGS: Clear to auscultation bilaterally. HEART: S1, S2, mildly tachycardic. ABDOMEN: Distended with positive bowel sounds. Soft. EXTREMITIES: Without clubbing or cyanosis. No gross edema. SKIN: Warm to touch without generalized signs of rash. She does have tattoos. NEUROLOGIC: She is nonfocal, moves all extremities and answers questions appropriately. PSYCHIATRIC: Affect is appropriate. RUE-PICC (10/26) clean Labs Lab Laboratory Tests Test 10/26/20 11:03 10/26/20 16:37 10/26/20 17:05 10/26/20 20:54 Glucose (Fingerstick) 208 mg/dL (70-99) 200 mg/dL (70-99) 204 mg/dL (70-99) Sodium Level 139 mmol/L (136-145) Potassium Level 3.4 mmol/L (3.5-5.1) Chloride Level 105 mmol/L (98-107) Carbon Dioxide Level 24 mmol/L (21-32) Anion Gap 10 (6-14) Blood Urea Nitrogen 5 mg/dL (7-20) Creatinine 0.6 mg/dL (0.6-1.0) Estimated GFR (Cockcroft-Gault) 130.8 BUN/Creatinine Ratio 8 (6-20) Glucose Level 179 mg/dL (70-99) Lactic Acid Level 1.2 mmol/L (0.4-2.0) Calcium Level 7.5 mg/dL (8.5-10.1) Total Bilirubin 0.3 mg/dL (0.2-1.0) Aspartate Amino Transf (AST/SGOT) 26 U/L (15-37) Alanine Aminotransferase (ALT/SGPT) 15 U/L (14-59) Alkaline Phosphatase 77 U/L (46-116) Total Protein 4.5 g/dL (6.4-8.2) Albumin 1.5 g/dL (3.4-5.0) Albumin/Globulin Ratio 0.5 (1.0-1.7) Test 10/27/20 04:45 10/27/20 07:49 White Blood Count 9.3 x10^3/uL (4.0-11.0) Red Blood Count 3.58 x10^6/uL (3.50-5.40) Hemoglobin 9.1 g/dL (12.0-15.5) Hematocrit 28.5 % (36.0-47.0) Mean Corpuscular Volume 80 fL (79-100) Mean Corpuscular Hemoglobin 25 pg (25-35) Mean Corpuscular Hemoglobin Concent 32 g/dL (31-37) Red Cell Distribution Width 14.6 % (11.5-14.5) Platelet Count 360 x10^3/uL (140-400) Neutrophils (%) (Auto) 72 % (31-73) Lymphocytes (%) (Auto) 7 % (24-48) Monocytes (%) (Auto) 20 % (0-9) Eosinophils (%) (Auto) 0 % (0-3) Basophils (%) (Auto) 0 % (0-3) Neutrophils # (Auto) 6.7 x10^3/uL (1.8-7.7) Lymphocytes # (Auto) 0.7 x10^3/uL (1.0-4.8) Monocytes # (Auto) 1.9 x10^3/uL (0.0-1.1) Eosinophils # (Auto) 0.0 x10^3/uL (0.0-0.7) Basophils # (Auto) 0.0 x10^3/uL (0.0-0.2) Sodium Level 142 mmol/L (136-145) Potassium Level 3.2 mmol/L (3.5-5.1) Chloride Level 107 mmol/L (98-107) Carbon Dioxide Level 21 mmol/L (21-32) Anion Gap 14 (6-14) Blood Urea Nitrogen 4 mg/dL (7-20) Creatinine 0.6 mg/dL (0.6-1.0) Estimated GFR (Cockcroft-Gault) 130.8 Glucose Level 206 mg/dL (70-99) Calcium Level 7.7 mg/dL (8.5-10.1) Creatine Kinase 31 U/L (26-192) Glucose (Fingerstick) 202 mg/dL (70-99) Micro Microbiology 10/23/20 Blood Culture - Preliminary, Resulted NO GROWTH AFTER 3 DAYS Objective Assessment Fever, Tmax 103.3 Questionable colitis with loose stools. C. diff neg 10/22. Diabetic ketoacidosis. PENICILLIN ALLERGY, HIVES AND THROAT SWELLING, but tolerates amoxicillin. Heart murmur. Recent dental cleaning with pre amoxicillin. Just finished steroids. Plan Plan of Care Dapto, Zosyn, flagyl and fluconazole f/u repeat CT A/P Repeat C. diff pending Lipase 72. TSH 0.346. CK 31 add-on LFTs Maintain hydration PICC management Transferring back to med-surg floor soon Discussed with nursing, mother at bedside and Dr. Galvan. Fever some better LFTS ok. lipase nml Pancolitis on repeat CT - stool studies pending. will d/c Immodium in case it is an infectious etiology Add po Vanc and d/c Dapto D/w Dr. Lindsay and family Attending Co-Sign Attending Co-Sign The patient was seen and interviewed as well as examined at the bedside. The chart was reviewed. The case was discussed. Agree with the plan of care. ELENA ORTIZ APRN October 27, 2020 09:31 LANDY GUZMÁN MD October 27, 2020 13:24
[2020-10-27 09:52] LABS: ALBUMIN 1.4 g/dL (3.4-5.0); DIRECT BILIRUBIN 0.1 mg/dL (0.0-0.2); TOTAL BILIRUBIN 0.4 mg/dL (0.2-1.0); TOTAL PROTEIN 4.5 g/dL (6.4-8.2)
--- NOTE | 2020-10-27 10:34 | RAD ---
CT of the abdomen and pelvis with contrast 10/27/2020 INDICATION: Abdominal pain, diarrhea, fever. COMPARISON STUDY: CT angiography October 21, 2020, CT abdomen and pelvis August 14, 2020. Technique:: Multidetector CT imaging of the abdomen and pelvis was performed following the administra tion of IV contrast. Limited visualization of the lung bases demonstrates tiny bilateral pleural effusions with minimal un derlying atelectasis. There is diffuse colonic wall thickening and areas of mucosal hyperenhancement. Pericolonic inflammat ion is noted. Liquid stool seen throughout the colon. Gas also noted in the transverse colon. The wendy earance is consistent with valentin colitis. Etiology is most likely infectious or inflammatory. Ischemia is less likely given distribution. The appendix is visualized and appears to be grossly unremarkable. Visualized small bowel appears to be grossly unremarkable. Liver, gallbladder, kidneys, adrenal glands, spleen, pancreas are unremarkable. No free fluid or free air is identified in the abdomen or pelvis. Bladder is unremarkable. Intrauterine device noted. Cyst ic structure in the right adnexa likely relates to an ovarian cyst. This measures 3.7 x 2.4 cm. This is increased in size with respect to comparison study. Follow-up ultrasound recommended. No acute oss eous changes are identified. IMPRESSION: 1. Pancolitis. The degree of acute inflammation is significantly increased in the interim since most recent comparison studies. Findings may represent active exacerbation of inflammatory bowel disease. Worsening infectious process is difficult to exclude by imaging alone. 2. Right adnexal cyst measuring 3.7 cm in maximal diameter, slightly increased with respect to maricruz rison exam when it measured 2.6 cm. Recommend follow-up ultrasound evaluation in [address] DOSING PQRS STATEMENT: One or more of the following individualized dose reduction techniques were utilized for this examinat ion: 1. Automated exposure control 2. Adjustment of the mA and/or kV according to patient size 3. Use of iterative reconstruction technique Electronically signed by: Alan Szymanski MD (10/27/2020 10:31 AM) [id number]
--- NOTE | 2020-10-27 11:18 | PDOC ---
[employer] PROGRESS NOTE Date of Service DOS: DATE: 10/27/20 TIME: 11:07 Chief Complaint Chief Complaint Nausea, vomiting, fever, and weakness. Found to be in DKA (blood sugar 900). Fever of unknown origin Pancolitis Pending repeat C. difficile History of Present Illness History of Present Illness Ms Zamarripa is 45yo F w/ PMHx anemia, uterine fibroids who presented to the ED via EMS from home due to progressive weakness with 8-10 episodes of diarrhea and emesis. She was unable to lift her arms or legs. She had a headache 710 as well as some nominal pain 7 out of 10. She had just recently finished treatment with amoxicillin and Medrol for dental caries last week. Very tearful she has no history that she knows of high blood sugar or diabetes. She follows at [facility]. Initially admitted to the ICU on DKA protocol with glucose over 900. 10/27/2020 No acute events overnight. Status post rapid response last night because of fever tachycardia and abdominal pain. Patient continues to have low-grade fe vers. She does continue to complain of diffuse abdominal pain and diarrhea. We do recommend her to place a rectal tube and GI is okay with that. Pending CT abdomen pelvis per ID and continue with empiric IV antibiotics. Upon further questioning, patient does not have history of recent travel, hiking, camping or working outside. She works at home mainly does not have any pets and works for the [employer]. Patient's chart, labs, images were reviewed and discussed with RN 10/26/2020: Pt. was seen and examined at bedside. Discussed case with RN. Discussed case with assistant case manager. The chart was reviewed. She has no new concerns or complaints. The pt.'s mood appeared to be improved from yesterday. She was resting comfortably when we saw her. She states her diarrhea has not improved since she was admitted. She is negative for C. diff. 10/25/2020: Pt. was seen and examined at bedside. Discussed case with RN. Discussed case with assistant case manager. The chart was reviewed. There was a code blue call last night, however, the pt. was found to be stable. This morning she was tired, weak, and tachycardic (HR: 119). She has no new concerns or complaints. The pt.'s mood appeared to be improved from yesterday. 10/22: Up and trying to eat, some anxiety and very emotional still. Went up on meal dose insulin. Transfer out of ICU. Bolus additional 1 liter NS Glucose in 200s K2.9. Still with abdominal pain today. D/w father bedside. Replace phos, mag, K Vitals/I&O Vitals/I&O: Vital Signs Date Time Temp Pulse Resp B/P (MAP) Pulse Ox O2 Delivery O2 Flow Rate FiO2 10/27/20 10:15 98.9 110 20 110/62 (78) 100 Room Air 98.9 10/27/20 06:27 40.0 I & O 10/26/20 10/26/20 10/27/20 15:00 23:00 07:00 Intake Total 851 ml 0 ml Balance 851 ml 0 ml Physical Exam Physical Exam: CONSTITUTIONAL: Sitting in the chiar, alert, appears tired HEENT: Pupils equal and reactive. She does wear contacts. She has normal conjunctivae. Oral cavity, oropharynx, she has tongue piercing, otherwise oral cavity is clear. NECK: Supple. Good range of motion. No gross fullness. LUNGS: Clear to auscultation bilaterally. HEART: S1, S2, mildly tachycardic. ABDOMEN: Distended with positive bowel sounds. Soft. EXTREMITIES: Without clubbing or cyanosis. No gross edema. SKIN: Warm to touch without generalized signs of rash. She does have tattoos. NEUROLOGIC: She is nonfocal, moves all extremities and answers questions appropriately. PSYCHIATRIC: Affect is appropriate. RUE-PICC (10/26) clean General: Alert, Oriented X3, Cooperative, No acute distress, mild distress, Other (General affect was improved from yesetday) Heart: Regular rate Abdomen: No tenderness Extremities: No clubbing, No cyanosis, No edema, Normal pulses Skin: No rashes, No breakdown Labs Labs: Laboratory Tests Test 10/26/20 16:37 10/26/20 17:05 10/26/20 20:54 10/27/20 04:45 Sodium Level 139 mmol/L (136-145) 142 mmol/L (136-145) Potassium Level 3.4 mmol/L (3.5-5.1) 3.2 mmol/L (3.5-5.1) Chloride Level 105 mmol/L (98-107) 107 mmol/L (98-107) Carbon Dioxide Level 24 mmol/L (21-32) 21 mmol/L (21-32) Anion Gap 10 (6-14) 14 (6-14) Blood Urea Nitrogen 5 mg/dL (7-20) 4 mg/dL (7-20) Creatinine 0.6 mg/dL (0.6-1.0) 0.6 mg/dL (0.6-1.0) Estimated GFR (Cockcroft-Gault) 130.8 130.8 BUN/Creatinine Ratio 8 (6-20) Glucose Level 179 mg/dL (70-99) 206 mg/dL (70-99) Lactic Acid Level 1.2 mmol/L (0.4-2.0) Calcium Level 7.5 mg/dL (8.5-10.1) 7.7 mg/dL (8.5-10.1) Total Bilirubin 0.3 mg/dL (0.2-1.0) 0.4 mg/dL (0.2-1.0) Aspartate Amino Transf (AST/SGOT) 26 U/L (15-37) 16 U/L (15-37) Alanine Aminotransferase (ALT/SGPT) 15 U/L (14-59) 17 U/L (14-59) Alkaline Phosphatase 77 U/L (46-116) 80 U/L (46-116) Total Protein 4.5 g/dL (6.4-8.2) 4.5 g/dL (6.4-8.2) Albumin 1.5 g/dL (3.4-5.0) 1.4 g/dL (3.4-5.0) Albumin/Globulin Ratio 0.5 (1.0-1.7) Glucose (Fingerstick) 200 mg/dL (70-99) 204 mg/dL (70-99) White Blood Count 9.3 x10^3/uL (4.0-11.0) Red Blood Count 3.58 x10^6/uL (3.50-5.40) Hemoglobin 9.1 g/dL (12.0-15.5) Hematocrit 28.5 % (36.0-47.0) Mean Corpuscular Volume 80 fL (79-100) Mean Corpuscular Hemoglobin 25 pg (25-35) Mean Corpuscular Hemoglobin Concent 32 g/dL (31-37) Red Cell Distribution Width 14.6 % (11.5-14.5) Platelet Count 360 x10^3/uL (140-400) Neutrophils (%) (Auto) 72 % (31-73) Lymphocytes (%) (Auto) 7 % (24-48) Monocytes (%) (Auto) 20 % (0-9) Eosinophils (%) (Auto) 0 % (0-3) Basophils (%) (Auto) 0 % (0-3) Neutrophils # (Auto) 6.7 x10^3/uL (1.8-7.7) Lymphocytes # (Auto) 0.7 x10^3/uL (1.0-4.8) Monocytes # (Auto) 1.9 x10^3/uL (0.0-1.1) Eosinophils # (Auto) 0.0 x10^3/uL (0.0-0.7) Basophils # (Auto) 0.0 x10^3/uL (0.0-0.2) Direct Bilirubin 0.1 mg/dL (0.0-0.2) Creatine Kinase 31 U/L (26-192) Test 10/27/20 07:49 Glucose (Fingerstick) 202 mg/dL (70-99) Assessment and Plan Assessmemt and Plan Problems Medical Problems: (1) DKA (diabetic ketoacidoses) Status: Acute (2) Pancreatitis Status: Acute (3) Sepsis Status: Acute Comment Review of Relevant I have reviewed the following items allyssa (where applicable) has been applied. Medications: Current Medications Medications (Trade) Dose Ordered Sig/Bhupinder Route PRN Reason Start Time Stop Time Status Last Admin Dose Admin Piperacillin Sod/ Tazobactam Sod 3.375 gm/Sodium Chloride 50 ml @ 100 mls/hr Q6HRS IV 10/26/20 18:00 10/27/20 05:34 Pantoprazole Sodium (Protonix) 40 mg DAILYAC PO 10/27/20 07:30 10/27/20 08:54 DC 10/27/20 07:51 Fluconazole/ Sodium Chloride 200 ml @ 100 mls/hr Q24H IV 10/26/20 14:00 10/26/20 21:28 Daptomycin 390 mg/ Sodium Chloride 50 ml @ 100 mls/hr Q24H IV 10/26/20 15:00 10/26/20 16:54 Metronidazole 100 ml @ 100 mls/hr Q8HRS IV 10/26/20 14:00 10/27/20 05:34 Potassium Chloride (Klor-Con) 40 meq 1X ONCE PO 10/27/20 07:15 10/27/20 07:16 DC 10/27/20 07:54 Iohexol (Omnipaque 300 Mg/ml) 75 ml 1X ONCE IV 10/27/20 09:15 10/27/20 09:16 DC 10/27/20 09:29 Justifications for Admission Other Justification NIC BURNS MD October 27, 2020 11:18
--- NOTE | 2020-10-27 11:31 | NUR ---
SS following for discharge planning. SS reviewed pt chart and discussed with pt RN. Pt is from home and is currently on room air. COVID19 negative. Pt on IV Zosyn, IV Daptomycin, and IV Fluconazole. PT/OT recommended most recently acute rehabilitation. Pt requesting to return to home if possible. Pt transferring to room 422. Sindy MOON, to follow.
[2020-10-27] MEDS: VANCOMYCIN 125 MG/2.5 ML ORAL SOLUTION. PO SCH ×2 (17:16→20:44)
[2020-10-27] MEDS: ENOXAPARIN 40 MG/0.4 ML SYRINGE. SQ SCH (17:16)
[2020-10-27] MEDS: KETOROLAC 15 MG/ML VIAL. IVP PRN (17:38)
[2020-10-27] MEDS: INSULIN GLARGINE SYRINGE. SQ SCH (21:22)
[2020-10-28] MEDS: PIPERACILLIN/TAZOBACTAM 3.375 GM in IV NORMAL SALINE 50ML 50 ML IV SCH ×5 (00:17→23:43)
[2020-10-28] MEDS: IV NORMAL SALINE 1000ML BAG 1,000 ML IV SCH ×3 (04:42→16:25)
[2020-10-28 06:29] LABS: BASO % 0 % (0-3); EOS # 0.1 x10^3/uL (0.0-0.7); EOS % 2 % (0-3); HEMATOCRIT 27.5 % (36.0-47.0); HEMOGLOBIN 8.8 g/dL (12.0-15.5); LYMPH # 0.5 x10^3/uL (1.0-4.8); LYMPH % 8 % (24-48); MEAN CORPUSCULAR HEMOGLOBIN 25 pg (25-35); MEAN CORPUSCULAR HGB CONC 32 g/dL (31-37); MEAN CORPUSCULAR VOLUME 80 fL (79-100); MONO # 0.8 x10^3/uL (0.0-1.1); MONO % 13 % (0-9); NEUT # 4.8 x10^3/uL (1.8-7.7); NEUT % 77 % (31-73); PLATELET COUNT 373 x10^3/uL (140-400); RED BLOOD COUNT 3.46 x10^6/uL (3.50-5.40); WHITE BLOOD COUNT 6.2 x10^3/uL (4.0-11.0)
[2020-10-28 06:52] LABS: CALCIUM 7.8 mg/dL (8.5-10.1); CREATININE 0.6 mg/dL (0.6-1.0); GFR 130.8
[2020-10-28 06:56] LABS: POTASSIUM 2.7 mmol/L (3.5-5.1)
[2020-10-28 07:15] VITALS: BP 125/74
[2020-10-28] MEDS: PANTOPRAZOLE IV PUSH 40 MG VIAL. IVP SCH (07:30)
[2020-10-28] MEDS: INSULIN LISPRO 300 UNITS/3 ML VIAL. SQ SCH ×6 (07:30→16:35)
[2020-10-28] MEDS: POTASSIUM CHLORIDE 20MEQ 100 ML IV SCH ×5 (07:45→12:11)
--- NOTE | 2020-10-28 09:08 | PDOC ---
PROGRESS NOTES Date of Service: DATE: 10/28/20 TIME: 09:08 Chief Complaint Chief Complaint Nausea, vomiting, fever, and weakness. Found to be in DKA (blood sugar 900). Fever of unknown origin Pancolitis Pending repeat C. difficile History of Present Illness History of Present Illness Ms Zamarripa is 45yo F w/ PMHx anemia, uterine fibroids who presented to the ED via EMS from home due to progressive weakness with 8-10 episodes of diarrhea and emesis. She was unable to lift her arms or legs. She had a headache 710 as well as some nominal pain 7 out of 10. She had just recently finished treatment with amoxicillin and Medrol for dental caries last week. Very tearful she has no history that she knows of high blood sugar or diabetes. She follows at [facility]. Initially admitted to the ICU on DKA protocol with glucose over 900. 10/28/2020 emesis x 1 last night Status post rapid response 5-05 because of fever tachycardia and abdominal pain. Patient continues to have low-grade fevers. She does continue to complain of diffuse abdominal pain and diarrhea. We do recommend her to place a rectal tube and GI is okay with that. Pending CT abdo men pelvis per ID and continue with empiric IV antibiotics. Upon further questioning, patient does not have history of recent travel, hiking, camping or working outside. She works at home mainly does not have any pets and works for the [employer] for [employer] services. Patient's chart, labs, images were reviewed and discussed with RN 10/27/2020 No acute events overnight. Status post rapid response last night because of fever tachycardia and abdominal pain. Patient continues to have low-grade fevers. She does continue to complain of diffuse abdominal pain and diarrhea. We do recommend her to place a rectal tube and GI is okay with that. Pending CT abdomen pelvis per ID and continue with empiric IV antibiotics. Upon further questioning, patient does not have history of recent travel, hiking, camping or working outside. She works at home mainly does not have any pets and works for the [employer] for [employer] services. Patient's chart, labs, images were reviewed and discussed with RN 10/26/2020: Pt. was seen and examined at bedside. Discussed case with RN. Discussed case with case managers. The chart was reviewed. She has no new concerns or complaints. The pt.'s mood appeared to be improved from yesterday. She was resting comfortably when we saw her. She states her diarrhea has not improved since she was admitted. She is negative for C. diff. 10/25/2020: Pt. was seen and examined at bedside. Discussed case with RN. Discussed case with case managers. The chart was reviewed. There was a code blue call last night, however, the pt. was found to be stable. This morning she was tired, weak, and tachycardic (HR: 119). She has no new concerns or complaints. The pt.'s mood appeared to be improved from yesterday. 10/22: Up and trying to eat, some anxiety and very emotional still. Went up on meal dose insulin. Transfer out of ICU. Bolus additional 1 liter NS Glucose in 200s K2.9. Still with abdominal pain today. D/w father bedside. Replace phos, mag, K Vitals Vitals Vital Signs Date Time Temp Pulse Resp B/P (MAP) Pulse Ox O2 Delivery O2 Flow Rate FiO2 10/28/20 07:15 100.3 109 18 125/74 (91) 97 Room Air 100.3 10/27/20 20:00 40.0 Physical Exam Physical Exam CONSTITUTIONAL: Sitting in the chiar, alert, appears tired HEENT: Pupils equal and reactive. She does wear contacts. She has normal conjunctivae. Oral cavity, oropharynx, she has tongue piercing, otherwise oral cavity is clear. NECK: Supple. Good range of motion. No gross fullness. LUNGS: Clear to auscultation bilaterally. HEART: S1, S2, mildly tachycardic. ABDOMEN: Distended with positive bowel sounds. Soft. EXTREMITIES: Without clubbing or cyanosis. No gross edema. SKIN: Warm to touch without generalized signs of rash. She does have tattoos. NEUROLOGIC: She is nonfocal, moves all extremities and answers questions appropriately. PSYCHIATRIC: Affect is appropriate. RUE-PICC (10/26) clean General: Alert, Oriented X3, Cooperative, No acute distress, mild distress, Other (General affect was improved from yesetday) Heart: Regular rate Abdomen: No tenderness Extremities: No clubbing, No cyanosis, No edema, Normal pulses Skin: No rashes, No breakdown Labs LABS Laboratory Tests Test 10/27/20 10:56 10/27/20 13:30 10/27/20 16:32 10/27/20 21:12 Glucose (Fingerstick) 176 mg/dL (70-99) 136 mg/dL (70-99) 174 mg/dL (70-99) Stool Campylobacter PCR Negative (NEGATIVE) Stool E. coli Shiga Toxins (PCR) Negative (NEGATIVE) Stool Salmonella PCR Negative (NEGATIVE) Stool Shigella PCR Negative (NEGATIVE) Clostridium difficile Toxin (PCR) Negative (NEGATIVE) Test 10/28/20 05:35 10/28/20 07:04 White Blood Count 6.2 x10^3/uL (4.0-11.0) Red Blood Count 3.46 x10^6/uL (3.50-5.40) Hemoglobin 8.8 g/dL (12.0-15.5) Hematocrit 27.5 % (36.0-47.0) Mean Corpuscular Volume 80 fL (79-100) Mean Corpuscular Hemoglobin 25 pg (25-35) Mean Corpuscular Hemoglobin Concent 32 g/dL (31-37) Red Cell Distribution Width 15.0 % (11.5-14.5) Platelet Count 373 x10^3/uL (140-400) Neutrophils (%) (Auto) 77 % (31-73) Lymphocytes (%) (Auto) 8 % (24-48) Monocytes (%) (Auto) 13 % (0-9) Eosinophils (%) (Auto) 2 % (0-3) Basophils (%) (Auto) 0 % (0-3) Neutrophils # (Auto) 4.8 x10^3/uL (1.8-7.7) Lymphocytes # (Auto) 0.5 x10^3/uL (1.0-4.8) Monocytes # (Auto) 0.8 x10^3/uL (0.0-1.1) Eosinophils # (Auto) 0.1 x10^3/uL (0.0-0.7) Basophils # (Auto) 0.0 x10^3/uL (0.0-0.2) Sodium Level 143 mmol/L (136-145) Potassium Level 2.7 mmol/L (3.5-5.1) Chloride Level 106 mmol/L (98-107) Carbon Dioxide Level 23 mmol/L (21-32) Anion Gap 14 (6-14) Blood Urea Nitrogen 4 mg/dL (7-20) Creatinine 0.6 mg/dL (0.6-1.0) Estimated GFR (Cockcroft-Gault) 130.8 Glucose Level 170 mg/dL (70-99) Calcium Level 7.8 mg/dL (8.5-10.1) Glucose (Fingerstick) 164 mg/dL (70-99) Assessment and Plan Assessmemt and Plan Problems Medical Problems: (1) DKA (diabetic ketoacidoses) Status: Acute (2) Pancreatitis Status: Acute (3) Sepsis Status: Acute Comment Review of Relevant I have reviewed the following items allyssa (where applicable) has been applied. Labs Laboratory Tests Test 10/26/20 11:03 10/26/20 16:37 10/26/20 17:05 10/26/20 20:54 Glucose (Fingerstick) 208 mg/dL (70-99) 200 mg/dL (70-99) 204 mg/dL (70-99) Sodium Level 139 mmol/L (136-145) Potassium Level 3.4 mmol/L (3.5-5.1) Chloride Level 105 mmol/L (98-107) Carbon Dioxide Level 24 mmol/L (21-32) Anion Gap 10 (6-14) Blood Urea Nitrogen 5 mg/dL (7-20) Creatinine 0.6 mg/dL (0.6-1.0) Estimated GFR (Cockcroft-Gault) 130.8 BUN/Creatinine Ratio 8 (6-20) Glucose Level 179 mg/dL (70-99) Lactic Acid Level 1.2 mmol/L (0.4-2.0) Calcium Level 7.5 mg/dL (8.5-10.1) Total Bilirubin 0.3 mg/dL (0.2-1.0) Aspartate Amino Transf (AST/SGOT) 26 U/L (15-37) Alanine Aminotransferase (ALT/SGPT) 15 U/L (14-59) Alkaline Phosphatase 77 U/L (46-116) Total Protein 4.5 g/dL (6.4-8.2) Albumin 1.5 g/dL (3.4-5.0) Albumin/Globulin Ratio 0.5 (1.0-1.7) Test 10/27/20 04:45 10/27/20 07:49 10/27/20 10:56 10/27/20 13:30 White Blood Count 9.3 x10^3/uL (4.0-11.0) Red Blood Count 3.58 x10^6/uL (3.50-5.40) Hemoglobin 9.1 g/dL (12.0-15.5) Hematocrit 28.5 % (36.0-47.0) Mean Corpuscular Volume 80 fL (79-100) Mean Corpuscular Hemoglobin 25 pg (25-35) Mean Corpuscular Hemoglobin Concent 32 g/dL (31-37) Red Cell Distribution Width 14.6 % (11.5-14.5) Platelet Count 360 x10^3/uL (140-400) Neutrophils (%) (Auto) 72 % (31-73) Lymphocytes (%) (Auto) 7 % (24-48) Monocytes (%) (Auto) 20 % (0-9) Eosinophils (%) (Auto) 0 % (0-3) Basophils (%) (Auto) 0 % (0-3) Neutrophils # (Auto) 6.7 x10^3/uL (1.8-7.7) Lymphocytes # (Auto) 0.7 x10^3/uL (1.0-4.8) Monocytes # (Auto) 1.9 x10^3/uL (0.0-1.1) Eosinophils # (Auto) 0.0 x10^3/uL (0.0-0.7) Basophils # (Auto) 0.0 x10^3/uL (0.0-0.2) Sodium Level 142 mmol/L (136-145) Potassium Level 3.2 mmol/L (3.5-5.1) Chloride Level 107 mmol/L (98-107) Carbon Dioxide Level 21 mmol/L (21-32) Anion Gap 14 (6-14) Blood Urea Nitrogen 4 mg/dL (7-20) Creatinine 0.6 mg/dL (0.6-1.0) Estimated GFR (Cockcroft-Gault) 130.8 Glucose Level 206 mg/dL (70-99) Calcium Level 7.7 mg/dL (8.5-10.1) Total Bilirubin 0.4 mg/dL (0.2-1.0) Direct Bilirubin 0.1 mg/dL (0.0-0.2) Aspartate Amino Transf (AST/SGOT) 16 U/L (15-37) Alanine Aminotransferase (ALT/SGPT) 17 U/L (14-59) Alkaline Phosphatase 80 U/L (46-116) Creatine Kinase 31 U/L (26-192) Total Protein 4.5 g/dL (6.4-8.2) Albumin 1.4 g/dL (3.4-5.0) Glucose (Fingerstick) 202 mg/dL (70-99) 176 mg/dL (70-99) Stool Campylobacter PCR Negative (NEGATIVE) Stool E. coli Shiga Toxins (PCR) Negative (NEGATIVE) Stool Salmonella PCR Negative (NEGATIVE) Stool Shigella PCR Negative (NEGATIVE) Clostridium difficile Toxin (PCR) Negative (NEGATIVE) Test 10/27/20 16:32 10/27/20 21:12 10/28/20 05:35 10/28/20 07:04 Glucose (Fingerstick) 136 mg/dL (70-99) 174 mg/dL (70-99) 164 mg/dL (70-99) White Blood Count 6.2 x10^3/uL (4.0-11.0) Red Blood Count 3.46 x10^6/uL (3.50-5.40) Hemoglobin 8.8 g/dL (12.0-15.5) Hematocrit 27.5 % (36.0-47.0) Mean Corpuscular Volume 80 fL (79-100) Mean Corpuscular Hemoglobin 25 pg (25-35) Mean Corpuscular Hemoglobin Concent 32 g/dL (31-37) Red Cell Distribution Width 15.0 % (11.5-14.5) Platelet Count 373 x10^3/uL (140-400) Neutrophils (%) (Auto) 77 % (31-73) Lymphocytes (%) (Auto) 8 % (24-48) Monocytes (%) (Auto) 13 % (0-9) Eosinophils (%) (Auto) 2 % (0-3) Basophils (%) (Auto) 0 % (0-3) Neutrophils # (Auto) 4.8 x10^3/uL (1.8-7.7) Lymphocytes # (Auto) 0.5 x10^3/uL (1.0-4.8) Monocytes # (Auto) 0.8 x10^3/uL (0.0-1.1) Eosinophils # (Auto) 0.1 x10^3/uL (0.0-0.7) Basophils # (Auto) 0.0 x10^3/uL (0.0-0.2) Sodium Level 143 mmol/L (136-145) Potassium Level 2.7 mmol/L (3.5-5.1) Chloride Level 106 mmol/L (98-107) Carbon Dioxide Level 23 mmol/L (21-32) Anion Gap 14 (6-14) Blood Urea Nitrogen 4 mg/dL (7-20) Creatinine 0.6 mg/dL (0.6-1.0) Estimated GFR (Cockcroft-Gault) 130.8 Glucose Level 170 mg/dL (70-99) Calcium Level 7.8 mg/dL (8.5-10.1) Laboratory Tests Test 10/27/20 10:56 10/27/20 13:30 10/27/20 16:32 10/27/20 21:12 Glucose (Fingerstick) 176 mg/dL (70-99) 136 mg/dL (70-99) 174 mg/dL (70-99) Stool Campylobacter PCR Negative (NEGATIVE) Stool E. coli Shiga Toxins (PCR) Negative (NEGATIVE) Stool Salmonella PCR Negative (NEGATIVE) Stool Shigella PCR Negative (NEGATIVE) Clostridium difficile Toxin (PCR) Negative (NEGATIVE) Test 10/28/20 05:35 10/28/20 07:04 White Blood Count 6.2 x10^3/uL (4.0-11.0) Red Blood Count 3.46 x10^6/uL (3.50-5.40) Hemoglobin 8.8 g/dL (12.0-15.5) Hematocrit 27.5 % (36.0-47.0) Mean Corpuscular Volume 80 fL (79-100) Mean Corpuscular Hemoglobin 25 pg (25-35) Mean Corpuscular Hemoglobin Concent 32 g/dL (31-37) Red Cell Distribution Width 15.0 % (11.5-14.5) Platelet Count 373 x10^3/uL (140-400) Neutrophils (%) (Auto) 77 % (31-73) Lymphocytes (%) (Auto) 8 % (24-48) Monocytes (%) (Auto) 13 % (0-9) Eosinophils (%) (Auto) 2 % (0-3) Basophils (%) (Auto) 0 % (0-3) Neutrophils # (Auto) 4.8 x10^3/uL (1.8-7.7) Lymphocytes # (Auto) 0.5 x10^3/uL (1.0-4.8) Monocytes # (Auto) 0.8 x10^3/uL (0.0-1.1) Eosinophils # (Auto) 0.1 x10^3/uL (0.0-0.7) Basophils # (Auto) 0.0 x10^3/uL (0.0-0.2) Sodium Level 143 mmol/L (136-145) Potassium Level 2.7 mmol/L (3.5-5.1) Chloride Level 106 mmol/L (98-107) Carbon Dioxide Level 23 mmol/L (21-32) Anion Gap 14 (6-14) Blood Urea Nitrogen 4 mg/dL (7-20) Creatinine 0.6 mg/dL (0.6-1.0) Estimated GFR (Cockcroft-Gault) 130.8 Glucose Level 170 mg/dL (70-99) Calcium Level 7.8 mg/dL (8.5-10.1) Glucose (Fingerstick) 164 mg/dL (70-99) Microbiology 10/26/20 Blood Culture - Preliminary, Resulted NO GROWTH AFTER 1 DAY Medications Current Medications Sodium Chloride 1,000 ml @ 1,000 mls/hr 1X ONCE IV Last administered on 10/21/20at 10:22; Start 10/21/20 at 09:40; Stop 10/21/20 at 10:39; Status DC Sodium Chloride 1,000 ml @ 1,000 mls/hr 1X ONCE IV Last administered on 10/21/20at 10:22; Start 10/21/20 at 09:40; Stop 10/21/20 at 10:39; Status DC Acetaminophen (Tylenol) 650 mg 1X ONCE PO Last administered on 10/21/20at 10:23; Start 10/21/20 at 09:45; Stop 10/21/20 at 09:46; Status DC Ringer's Solution 500 ml @ 500 mls/hr 1X ONCE IV Last administered on 10/21/20at 10:45; Start 10/21/20 at 10:45; Stop 10/21/20 at 11:44; Status DC Hydromorphone HCl (Dilaudid) 0.5 mg 1X ONCE IVP ; Start 10/21/20 at 12:00; Stop 10/21/20 at 19:02; Status DC Dextrose/Sodium Chloride 1,000 ml @ 250 mls/hr Q4H IV ; Start 10/21/20 at 12:15; Stop 10/21/20 at 12:40; Status DC Insulin Human Regular 100 unit/ Sodium Chloride 101 ml @ 0 mls/hr CONT PRN PRN IV PER PROTOCOL Last administered on 10/21/20at 13:45; Start 10/21/20 at 12:15; Stop 10/23/20 at 09:37; Status DC Potassium Chloride/Water 100 ml @ 100 mls/hr PRN Q1HR PRN IV SEE COMMENTS; Start 10/21/20 at 12:15; Stop 10/23/20 at 09:37; Status DC Potassium Chloride/Water 100 ml @ 100 mls/hr PRN Q1HR PRN IV SEE COMMENTS; Start 10/21/20 at 12:15; Stop 10/23/20 at 09:37; Status DC Potassium Chloride/Water 100 ml @ 100 mls/hr PRN Q1HR PRN IV SEE COMMENTS; Start 10/21/20 at 12:15; Stop 10/23/20 at 09:37; Status DC Iohexol (Omnipaque 300 Mg/ml) 60 ml 1X ONCE IV ; Start 10/21/20 at 12:15; Stop 10/21/20 at 12:16; Status UNV Iohexol (Omnipaque 350 Mg/ml) 90 ml 1X ONCE IV Last administered on 10/21/20at 12:50; Start 10/21/20 at 12:15; Stop 10/21/20 at 12:18; Status DC Insulin Human Regular 100 ml @ 0 mls/hr 1X ONCE IV Last administered on 10/21/20at 12:45; Start 10/21/20 at 12:45; Stop 10/21/20 at 12:46; Status DC Sodium Chloride 1,000 ml @ 250 mls/hr Q4H IV ; Start 10/21/20 at 12:45; Stop 10/21/20 at 14:38; Status DC Lorazepam (Ativan Inj) 1 mg PRN Q4HRS PRN IVP ANXIETY / AGITATION Last administered on 10/21/20at 21:43; Start 10/21/20 at 14:30 Enoxaparin Sodium (Lovenox Per Pharmacy Prophylaxis Dosing) 1 each PRN DAILY PRN MC SEE COMMENTS; Start 10/21/20 at 14:30 Enoxaparin Sodium (Lovenox 40mg Syringe) 40 mg Q24H SQ Last administered on 10/27/20at 17:16; Start 10/21/20 at 15:00 Sodium Chloride 1,000 ml @ 250 mls/hr Q4H IV Last administered on 10/21/20at 15:28; Start 10/21/20 at 14:45; Stop 10/23/20 at 09:37; Status DC Dextrose/Sodium Chloride 1,000 ml @ 250 mls/hr Q4H IV Last administered on 10/22/20at 06:31; Start 10/21/20 at 18:00; Stop 10/22/20 at 09:14; Status DC Potassium Phosphate 20 mmol/ Sodium Chloride 506.6667 ml @ 125 mls/hr 1X ONCE IV Last administered on 10/21/20at 18:02; Start 10/21/20 at 18:00; Stop 10/21/20 at 22:03; Status DC Insulin Glargine (Lantus Syringe) 12 unit QHS SQ Last administered on 10/27/20at 21:22; Start 10/21/20 at 21:00 Insulin Human Lispro (HumaLOG) 0-9 UNITS TIDWMEALS SQ Last administered on 10/27/20at 13:37; Start 10/22/20 at 08:00 Dextrose (Dextrose 50%-Water Syringe) 12.5 gm PRN Q15MIN PRN IV SEE COMMENTS; Start 10/21/20 at 19:00 Insulin Human Lispro (HumaLOG) 3 units TIDAC SQ Last administered on 10/22/20at 08:47; Start 10/22/20 at 07:30; Stop 10/22/20 at 09:13; Status DC Insulin Human Lispro (HumaLOG) 6 units TIDAC SQ Last administered on 10/28/20at 07:30; Start 10/22/20 at 11:30 Sodium Chloride 1,000 ml @ 1,000 mls/hr 1X ONCE IV Last administered on 10/22/20at 09:45; Start 10/22/20 at 09:30; Stop 10/22/20 at 10:29; Status DC Sodium Chloride 1,000 ml @ 100 mls/hr Q10H IV Last administered on 10/28/20at 07:45; Start 10/22/20 at 11:00 Ondansetron HCl (Zofran) 4 mg PRN Q6HRS PRN IVP NAUSEA/VOMITING Last administered on 10/27/20at 07:50; Start 10/22/20 at 11:00 Acetaminophen (Tylenol) 650 mg PRN Q6HRS PRN PO MILD PAIN / TEMP > 100.3'F Last administered on 10/26/20at 20:44; Start 10/22/20 at 11:00 Potassium Chloride (Klor-Con) 20 meq 1X ONCE PO Last administered on 10/22/20at 15:40; Start 10/22/20 at 14:45; Stop 10/22/20 at 14:46; Status DC Potassium Chloride (Klor-Con) 40 meq 1X ONCE PO Last administered on 10/23/20at 06:00; Start 10/23/20 at 06:00; Stop 10/23/20 at 06:01; Status DC Potassium Chloride (Klor-Con) 40 meq 1X ONCE PO Last administered on 10/23/20at 09:06; Start 10/23/20 at 10:00; Stop 10/23/20 at 10:01; Status DC Potassium Chloride/Water 100 ml @ 100 mls/hr Q1H IV Last administered on 10/23/20at 18:43; Start 10/23/20 at 10:30; Stop 10/23/20 at 12:29; Status DC Magnesium Sulfate 50 ml @ 25 mls/hr 1X ONCE IV Last administered on 10/23/20at 15:36; Start 10/23/20 at 11:00; Stop 10/23/20 at 12:59; Status DC Potassium Phosphate 13.6 mmol/Sodium Chloride 254.5333 ml @ 127.... 1X ONCE IV Last administered on 10/23/20at 23:14; Start 10/23/20 at 13:00; Stop 10/23/20 at 14:59; Status DC Ketorolac Tromethamine (Toradol 15mg Vial) 15 mg PRN Q6HRS PRN IVP INFLAMMATION Last administered on 10/27/20at 17:38; Start 10/23/20 at 10:30; Stop 10/28/20 at 10:29 Potassium Bicarbonate (Potassium Effervescent Tablet) 40 meq 1X ONCE PO Last administered on 10/23/20at 12:11; Start 10/23/20 at 10:30; Stop 10/23/20 at 10:34; Status DC Ibuprofen (Motrin) 400 mg 1X ONCE PO Last administered on 10/23/20at 21:00; Start 10/23/20 at 20:15; Stop 10/23/20 at 20:16; Status DC Levofloxacin/ Dextrose 100 ml @ 100 mls/hr 1X ONCE IV Last administered on 10/23/20at 20:27; Start 10/23/20 at 21:00; Stop 10/23/20 at 21:59; Status DC Sodium Chloride (Normal Saline Flush) 10 ml QSHIFT PRN IV AFTER MEDS AND BLOOD DRAWS; Start 10/24/20 at 07:45 Sodium Chloride (Normal Saline Flush) 10 ml PRN Q5MIN PRN IV AFTER MEDS AND BLOOD DRAWS; Start 10/24/20 at 07:45 Sodium Chloride (Normal Saline Flush) 20 ml PRN Q5MIN PRN IV AFTER MEDS AND BLOOD DRAWS; Start 10/24/20 at 07:45 Lidocaine HCl (Buffered Lidocaine 1%) 6 ml 1X ONCE INJ ; Start 10/24/20 at 09:30; Stop 10/24/20 at 09:31; Status DC Amoxicillin/ Clavulanate Potassium (Augmentin 875/ 125mg) 1 tab BID PO Last administered on 10/26/20at 09:17; Start 10/24/20 at 11:30; Stop 10/26/20 at 12:42; Status DC Lactobacillus Rhamnosus (Culturelle) 1 cap BID PO Last administered on 10/27/20at 20:44; Start 10/24/20 at 21:00 Potassium Chloride (Klor-Con) 40 meq 1X ONCE PO Last administered on 10/25/20at 07:03; Start 10/25/20 at 06:45; Stop 10/25/20 at 06:50; Status DC Potassium Bicarbonate (Potassium Effervescent Tablet) 40 meq 1X ONCE PO Last administered on 10/25/20at 11:58; Start 10/25/20 at 12:00; Stop 10/25/20 at 12:01; Status DC Potassium Chloride (Klor-Con) 40 meq 1X ONCE PO Last administered on 10/25/20at 12:00; Start 10/25/20 at 12:00; Stop 10/25/20 at 12:10; Status DC Potassium Chloride/Water 100 ml @ 100 mls/hr Q1H IV Last administered on 1at 20:32; Start 10/25/20 at 15:30; Stop 10/25/20 at 19:29; Status DC Potassium Bicarbonate (Potassium Effervescent Tablet) 40 meq 1X ONCE PO Last administered on 10/26/20at 09:17; Start 10/26/20 at 08:30; Stop 10/26/20 at 08:31; Status DC Loperamide HCl (Imodium) 2 mg PRN Q15MIN PRN PO DIARRHEA Last administered on 10/27/20at 04:24; Start 10/26/20 at 09:15; Stop 10/27/20 at 13:20; Status DC Vancomycin HCl (Vanco Per Pharmacy) 1 each PRN DAILY PRN MC SEE COMMENTS; Start 10/26/20 at 12:45; Stop 10/26/20 at 13:53; Status DC Piperacillin Sod/ Tazobactam Sod (Zosyn Per Pharmacy) 1 each PRN DAILY PRN MC SEE COMMENTS; Start 10/26/20 at 12:45 Piperacillin Sod/ Tazobactam Sod 3.375 gm/Sodium Chloride 50 ml @ 100 mls/hr Q6HRS IV Last administered on 10/28/20at 05:36; Start 10/26/20 at 18:00 Vancomycin HCl 1.5 gm/Sodium Chloride 500 ml @ 250 mls/hr 1X ONCE IV ; Start 10/26/20 at 14:00; Stop 10/26/20 at 15:59; Status Cancel Pantoprazole Sodium (Protonix) 40 mg DAILYAC PO Last administered on 10/27/20at 07:51; Start 10/27/20 at 07:30; Stop 10/27/20 at 08:54; Status DC Fluconazole/ Sodium Chloride 200 ml @ 100 mls/hr Q24H IV Last administered on 10/26/20at 21:28; Start 10/26/20 at 14:00 Daptomycin 390 mg/ Sodium Chloride 50 ml @ 100 mls/hr Q24H IV Last administered on 10/26/20at 16:54; Start 10/26/20 at 15:00; Stop 10/27/20 at 13:22; Status DC Metronidazole 100 ml @ 100 mls/hr Q8HRS IV Last administered on 10/28/20at 06:23; Start 10/26/20 at 14:00 Potassium Chloride (Klor-Con) 40 meq 1X ONCE PO Last administered on 10/27/20at 07:54; Start 10/27/20 at 07:15; Stop 10/27/20 at 07:16; Status DC Pantoprazole Sodium (PROTONIX VIAL for IV PUSH) 40 mg DAILYAC IVP Last administered on 10/28/20at 07:30; Start 10/28/20 at 07:30 Iohexol (Omnipaque 300 Mg/ml) 75 ml 1X ONCE IV Last administered on 10/27/20at 09:29; Start 10/27/20 at 09:15; Stop 10/27/20 at 09:16; Status DC Info (CONTRAST GIVEN -- Rx MONITORING) 1 each PRN DAILY PRN MC SEE COMMENTS; Start 10/27/20 at 09:15; Stop 10/29/20 at 09:14 Vancomycin HCl (Vancomycin Oral Solution) 125 mg [id number] PO Last administered on 10/27/20at 20:44; Start 10/27/20 at 17:00 Potassium Chloride/Water 100 ml @ 100 mls/hr Q1H IV Last administered on 10/28/20at 07:45; Start 10/28/20 at 07:30; Stop 10/28/20 at 12:29 Potassium Chloride (Klor-Con) 20 meq TIDWMEALS PO ; Start 10/28/20 at 08:00 Active Scripts Active Ondansetron Odt (Ondansetron) 4 Mg Tab.rapdis 1 Tab PO PRN Q6-8HRS Pepcid (Famotidine) 20 Mg Tablet 20 Mg PO BID Carafate (Sucralfate) 1 Gm/10 Ml Oral.susp 10 Ml PO QID 30 Days before food Cyclobenzaprine Hcl 10 Mg Tablet 1 Tab PO TID Naproxen 500 Mg Tablet 1 Tab PO BID Vitals/I & O Vital Sign - Last 24 Hours 10/27/20 10/27/20 10/27/20 10/27/20 10:15 11:30 15:52 19:00 Temp 98.9 99.3 99.7 99.8 98.9 99.3 99.7 99.8 Pulse 110 111 113 115 Resp 20 18 16 20 B/P (MAP) 110/62 (78) 111/73 (86) 120/74 (89) 113/59 (77) Pulse Ox 100 99 99 94 O2 Delivery Room Air Room Air Room Air 10/27/20 10/28/20 20:00 07:15 Temp 100.3 100.3 Pulse 109 Resp 18 B/P (MAP) 125/74 (91) Pulse Ox 97 O2 Delivery Room Air Room Air O2 Flow Rate 40.0 Intake and Output 10/27/20 10/27/20 10/28/20 15:00 23:00 07:00 Intake Total 140 ml 360 ml 240 ml Output Total 350 ml 350 ml Balance 140 ml 10 ml -110 ml Justicifation of Admission Dx: Justifications for Admission: Justification of Admission Dx: Yes TARSHA WILKERSON MD October 28, 2020 09:08
--- NOTE | 2020-10-28 09:26 | PDOC ---
Date of Service: DATE: 10/28/20 TIME: 09:17 Subjective: Subjective: Feels better today - eating more, no n/v, less abdominal discomfort though does feel bloated and like she needs to pass gas or belch. +diarrhea this morning Daughter is getting tomorrow evening. Objective: Vital Signs: Vital Signs Date Time Temp Pulse Resp B/P (MAP) Pulse Ox O2 Delivery O2 Flow Rate FiO2 10/28/20 07:15 100.3 109 18 125/74 (91) 97 Room Air 100.3 10/27/20 20:00 40.0 Labs: Laboratory Tests Test 10/27/20 10:56 10/27/20 13:30 10/27/20 16:32 10/27/20 21:12 Glucose (Fingerstick) 176 mg/dL 136 mg/dL 174 mg/dL Stool Campylobacter PCR Negative Stool E. coli Shiga Toxins (PCR) Negative Stool Salmonella PCR Negative Stool Shigella PCR Negative Clostridium difficile Toxin (PCR) Negative Test 10/28/20 05:35 10/28/20 07:04 White Blood Count 6.2 x10^3/uL Red Blood Count 3.46 x10^6/uL Hemoglobin 8.8 g/dL Hematocrit 27.5 % Mean Corpuscular Volume 80 fL Mean Corpuscular Hemoglobin 25 pg Mean Corpuscular Hemoglobin Concent 32 g/dL Red Cell Distribution Width 15.0 % Platelet Count 373 x10^3/uL Neutrophils (%) (Auto) 77 % Lymphocytes (%) (Auto) 8 % Monocytes (%) (Auto) 13 % Eosinophils (%) (Auto) 2 % Basophils (%) (Auto) 0 % Neutrophils # (Auto) 4.8 x10^3/uL Lymphocytes # (Auto) 0.5 x10^3/uL Monocytes # (Auto) 0.8 x10^3/uL Eosinophils # (Auto) 0.1 x10^3/uL Basophils # (Auto) 0.0 x10^3/uL Sodium Level 143 mmol/L Potassium Level 2.7 mmol/L Chloride Level 106 mmol/L Carbon Dioxide Level 23 mmol/L Anion Gap 14 Blood Urea Nitrogen 4 mg/dL Creatinine 0.6 mg/dL Estimated GFR (Cockcroft-Gault) 130.8 Glucose Level 170 mg/dL Calcium Level 7.8 mg/dL Glucose (Fingerstick) 164 mg/dL Imaging: CT A/P 10/27 IMPRESSION: 1. Pancolitis. The degree of acute inflammation is significantly increased in the interim since most recent comparison studies. Findings may represent active exacerbation of inflammatory bowel disease. Worsening infectious process is difficult to exclude by imaging alone. 2. Right adnexal cyst measuring 3.7 cm in maximal diameter, slightly increased with respect to comparison exam when it measured 2.6 cm. Recommend follow-up ultrasound evaluation in 3 months. PE: GEN: looks a little better today LUNGS: clear anteriorly HEART: tachycardic ABD: a few gurgles, soft, distended, mild discomfort diffusely NEURO/PSYCH: A & O 3, depressed A/P: Fever, tachycardia, diarrhea - C Diff negative x 2, enteric panel negative Anemia (iron and B12), hypokalemia Pancolitis on CT New DM -- Will check interval KUB; otherwise continue same from GI standpoint. Justicifation of Admission Dx: Justifications for Admission: Justification of Admission Dx: Yes SILVIA HARRIS October 28, 2020 09:26
--- NOTE | 2020-10-28 09:53 | NUR ---
SW following. Discussed with RN, pt from home, room air, ada diet, COVID-19 negative. Pt does not want to go to rehab - wants to go home. Pt had a critical potassium today. SW will continue to follow.
[2020-10-28] MEDS: VANCOMYCIN 125 MG/2.5 ML ORAL SOLUTION. PO SCH ×4 (09:55→20:38)
[2020-10-28] MEDS: POTASSIUM CHLORIDE 20 MEQ TABLET.ER. PO SCH ×3 (09:56→16:24)
[2020-10-28] MEDS: LACTOBACILLUS RHAMNOSUS GG 1 CAPSULE. PO SCH ×2 (09:56→20:37)
[2020-10-28] MEDS: ONDANSETRON PF 4 MG/2 ML VIAL. IVP PRN ×2 (10:00→16:36)
[2020-10-28] MEDS: KETOROLAC 15 MG/ML VIAL. IVP PRN ×3 (10:00→23:48)
[2020-10-28 10:30] VITALS: BP 115/65
--- NOTE | 2020-10-28 11:04 | PDOC ---
Infectious Disease Note Subjective Subjective Thought diarrhea was getting better, didn't have any all night. But after eating breakfast, "it just kept coming out" and noticed some blood this time. + distention/cramps/nausea Fever 102 ROS ROS as mentioned above Vital Sign Vital Signs Vital Signs Date Time Temp Pulse Resp B/P (MAP) Pulse Ox O2 Delivery O2 Flow Rate FiO2 10/28/20 10:30 102.0 119 18 115/65 (82) 98 Room Air 102.0 10/27/20 20:00 40.0 Physical Exam PHYSICAL EXAM GENERAL: Propped up in bed, awake, tearful HEENT: Pupils equal and reactive. She does wear contacts. She has normal conjunctivae. Oral cavity, oropharynx, she has tongue piercing, otherwise oral cavity is clear. NECK: Supple. Good range of motion. No gross fullness. LUNGS: Clear to auscultation bilaterally. HEART: S1, S2, mildly tachycardic. ABDOMEN: Distended with positive bowel sounds. Soft. tender EXTREMITIES: Without clubbing or cyanosis. No gross edema. SKIN: Warm to touch without generalized signs of rash. Multiple tattoos. NEUROLOGIC: She is nonfocal, moves all extremities and answers questions appropriately. PSYCHIATRIC: flat RUE-PICC (10/26) clean Labs Lab Laboratory Tests Test 10/27/20 10:56 10/27/20 13:30 10/27/20 16:32 10/27/20 21:12 Glucose (Fingerstick) 176 mg/dL (70-99) 136 mg/dL (70-99) 174 mg/dL (70-99) Stool Campylobacter PCR Negative (NEGATIVE) Stool E. coli Shiga Toxins (PCR) Negative (NEGATIVE) Stool Salmonella PCR Negative (NEGATIVE) Stool Shigella PCR Negative (NEGATIVE) Clostridium difficile Toxin (PCR) Negative (NEGATIVE) Test 10/28/20 05:35 10/28/20 07:04 10/28/20 10:51 White Blood Count 6.2 x10^3/uL (4.0-11.0) Red Blood Count 3.46 x10^6/uL (3.50-5.40) Hemoglobin 8.8 g/dL (12.0-15.5) Hematocrit 27.5 % (36.0-47.0) Mean Corpuscular Volume 80 fL (79-100) Mean Corpuscular Hemoglobin 25 pg (25-35) Mean Corpuscular Hemoglobin Concent 32 g/dL (31-37) Red Cell Distribution Width 15.0 % (11.5-14.5) Platelet Count 373 x10^3/uL (140-400) Neutrophils (%) (Auto) 77 % (31-73) Lymphocytes (%) (Auto) 8 % (24-48) Monocytes (%) (Auto) 13 % (0-9) Eosinophils (%) (Auto) 2 % (0-3) Basophils (%) (Auto) 0 % (0-3) Neutrophils # (Auto) 4.8 x10^3/uL (1.8-7.7) Lymphocytes # (Auto) 0.5 x10^3/uL (1.0-4.8) Monocytes # (Auto) 0.8 x10^3/uL (0.0-1.1) Eosinophils # (Auto) 0.1 x10^3/uL (0.0-0.7) Basophils # (Auto) 0.0 x10^3/uL (0.0-0.2) Sodium Level 143 mmol/L (136-145) Potassium Level 2.7 mmol/L (3.5-5.1) Chloride Level 106 mmol/L (98-107) Carbon Dioxide Level 23 mmol/L (21-32) Anion Gap 14 (6-14) Blood Urea Nitrogen 4 mg/dL (7-20) Creatinine 0.6 mg/dL (0.6-1.0) Estimated GFR (Cockcroft-Gault) 130.8 Glucose Level 170 mg/dL (70-99) Calcium Level 7.8 mg/dL (8.5-10.1) Magnesium Level 2.1 mg/dL (1.8-2.4) Glucose (Fingerstick) 164 mg/dL (70-99) 195 mg/dL (70-99) Micro 5/2 and 5/[address] A/P, 10/27. 1. Pancolitis. The degree of acute inflammation is significantly increased in the interim since most recent comparison studies. Findings may represent active exacerbation of inflammatory bowel disease. Worsening infectious process is difficult to exclude by imaging alone. 2. Right adnexal cyst measuring 3.7 cm in maximal diameter, slightly increased with respect to comparison exam when it measured 2.6 cm. Recommend follow-up ultrasound evaluation in 3 months. Objective Assessment Fever Pancolitis on CT with loose stools. C. diff neg 10/22 and 10/27. stool studies neg. Nml lipase Diabetic ketoacidosis. PENICILLIN ALLERGY, HIVES AND THROAT SWELLING, but tolerates amoxicillin. Heart murmur. Recent dental cleaning with pre amoxicillin. Just finished steroids. Plan Plan of Care Zosyn, flagyl and fluconazole po vancomycin Probiotics Maintain hydration Monitor labs/temp PICC management f/u KUB Discussed with nursing and family at bedside KUB FINDINGS: Moderate dilation of the transverse colon measuring 7 cm is unchanged from primary health care nurse image of CT 10/27/2020. No dilated small bowel. An IUD is seen in the pelvis. There is moderate joint space narrowing of the hips. IMPRESSION: Unchanged dilation of the transverse colon. D/c Flagyl Await Further GI follow up D/w sister Attending Co-Sign Attending Co-Sign The patient was seen and interviewed as well as examined at the bedside. The chart was reviewed. The case was discussed. Agree with the plan of care. ELENA ORTIZ APRN October 28, 2020 11:04 LANDY GUZMÁN MD October 28, 2020 13:30
[2020-10-28] MEDS: ACETAMINOPHEN 325 MG TABLET. PO PRN (11:25)
--- NOTE | 2020-10-28 11:25 | RAD ---
EXAM: XR ABDOMEN 1V 10/28/2020 9:31 AM CLINICAL INDICATION: Pancolitis, abdominal distention, diarrhea COMPARISON: CT abdomen 10/27/2020 TECHNIQUE: AP supine view the abdomen FINDINGS: Moderate dilation of the transverse colon measuring 7 cm is unchanged from network systems administrator image of CT 10/27/2020. No dilated small bowel. An IUD is seen in the pelvis. There is moderate joint space narr owing of the hips. IMPRESSION: Unchanged dilation of the transverse colon. Electronically signed by: Sindy Fitzpatrick MD (10/28/2020 11:22 AM) [id number]
[2020-10-28] MEDS: FLUCONAZOLE 400MG/200ML PREMIX 200 ML IV SCH (13:33)
[2020-10-28 14:53] VITALS: BP 99/64
[2020-10-28] MEDS: ENOXAPARIN 40 MG/0.4 ML SYRINGE. SQ SCH (16:25)
[2020-10-28 19:20] VITALS: BP 110/59
[2020-10-28] MEDS: INSULIN GLARGINE SYRINGE. SQ SCH (20:42)
[2020-10-28 23:23] VITALS: BP 114/70
[2020-10-29 03:19] VITALS: BP 114/79
[2020-10-29] MEDS: PIPERACILLIN/TAZOBACTAM 3.375 GM in IV NORMAL SALINE 50ML 50 ML IV SCH ×4 (05:23→23:29)
[2020-10-29] MEDS: IV NORMAL SALINE 1000ML BAG 1,000 ML IV SCH ×3 (05:37→23:00)
[2020-10-29 06:04] LABS: BASO % 0 % (0-3); EOS # 0.1 x10^3/uL (0.0-0.7); EOS % 2 % (0-3); HEMOGLOBIN 8.2 g/dL (12.0-15.5); LYMPH # 0.7 x10^3/uL (1.0-4.8); LYMPH % 13 % (24-48); MEAN CORPUSCULAR HEMOGLOBIN 25 pg (25-35); MEAN CORPUSCULAR HGB CONC 32 g/dL (31-37); MEAN CORPUSCULAR VOLUME 79 fL (79-100); MONO # 0.8 x10^3/uL (0.0-1.1); MONO % 13 % (0-9); NEUT # 4.2 x10^3/uL (1.8-7.7); NEUT % 72 % (31-73); PLATELET COUNT 381 x10^3/uL (140-400); RED BLOOD COUNT 3.29 x10^6/uL (3.50-5.40); RED CELL DISTRIBUTION WIDTH 14.7 % (11.5-14.5); WHITE BLOOD COUNT 5.8 x10^3/uL (4.0-11.0)
[2020-10-29 06:28] LABS: CALCIUM 7.5 mg/dL (8.5-10.1); CREATININE 0.6 mg/dL (0.6-1.0); GFR 130.8; POTASSIUM 3.5 mmol/L (3.5-5.1)
[2020-10-29 08:00] VITALS: BP 120/80
[2020-10-29] MEDS: LACTOBACILLUS RHAMNOSUS GG 1 CAPSULE. PO SCH ×2 (08:21→20:54)
[2020-10-29] MEDS: VANCOMYCIN 125 MG/2.5 ML ORAL SOLUTION. PO SCH ×4 (08:22→20:54)
[2020-10-29] MEDS: PANTOPRAZOLE IV PUSH 40 MG VIAL. IVP SCH (08:22)
[2020-10-29] MEDS: POTASSIUM CHLORIDE 20 MEQ TABLET.ER. PO SCH ×3 (08:22→17:07)
[2020-10-29] MEDS: INSULIN LISPRO 300 UNITS/3 ML VIAL. SQ SCH ×6 (08:31→17:17)
--- NOTE | 2020-10-29 08:44 | PDOC ---
Infectious Disease Note Subjective Subjective Persist diarrhea with incontinence, bloating and cramps Going to try to eat breakfast No fevers in nearly 24 hrs Vital Sign Vital Signs Vital Signs Date Time Temp Pulse Resp B/P (MAP) Pulse Ox O2 Delivery O2 Flow Rate FiO2 10/29/20 08:00 98.4 100 16 120/80 (93) 97 Room Air 98.4 Physical Exam PHYSICAL EXAM GENERAL: Propped up in bed, alert, no contact HEENT: Anicteric. Oropharynx,tongue piercing, otherwise oral cavity is clear. NECK: Supple. Good range of motion. No gross fullness. LUNGS: Clear to auscultation bilaterally. HEART: S1, S2. ABDOMEN: Distended with positive bowel sounds. Soft. tender EXTREMITIES: Without clubbing or cyanosis. No gross edema. SKIN: Warm to touch without generalized signs of rash. Multiple tattoos. NEUROLOGIC: Alert, nonfocal, PSYCHIATRIC: flat RUE-PICC (10/26) clean Labs Lab Laboratory Tests Test 10/28/20 10:51 10/28/20 16:19 10/28/20 20:36 10/29/20 05:45 Glucose (Fingerstick) 195 mg/dL (70-99) 225 mg/dL (70-99) 196 mg/dL (70-99) White Blood Count 5.8 x10^3/uL (4.0-11.0) Red Blood Count 3.29 x10^6/uL (3.50-5.40) Hemoglobin 8.2 g/dL (12.0-15.5) Hematocrit 26.0 % (36.0-47.0) Mean Corpuscular Volume 79 fL (79-100) Mean Corpuscular Hemoglobin 25 pg (25-35) Mean Corpuscular Hemoglobin Concent 32 g/dL (31-37) Red Cell Distribution Width 14.7 % (11.5-14.5) Platelet Count 381 x10^3/uL (140-400) Neutrophils (%) (Auto) 72 % (31-73) Lymphocytes (%) (Auto) 13 % (24-48) Monocytes (%) (Auto) 13 % (0-9) Eosinophils (%) (Auto) 2 % (0-3) Basophils (%) (Auto) 0 % (0-3) Neutrophils # (Auto) 4.2 x10^3/uL (1.8-7.7) Lymphocytes # (Auto) 0.7 x10^3/uL (1.0-4.8) Monocytes # (Auto) 0.8 x10^3/uL (0.0-1.1) Eosinophils # (Auto) 0.1 x10^3/uL (0.0-0.7) Basophils # (Auto) 0.0 x10^3/uL (0.0-0.2) Sodium Level 142 mmol/L (136-145) Potassium Level 3.5 mmol/L (3.5-5.1) Chloride Level 109 mmol/L (98-107) Carbon Dioxide Level 24 mmol/L (21-32) Anion Gap 9 (6-14) Blood Urea Nitrogen 2 mg/dL (7-20) Creatinine 0.6 mg/dL (0.6-1.0) Estimated GFR (Cockcroft-Gault) 130.8 Glucose Level 197 mg/dL (70-99) Calcium Level 7.5 mg/dL (8.5-10.1) Micro 5/ and 10/[address] A/P, 10/27. 1. Pancolitis. The degree of acute inflammation is significantly increased in the interim since most recent comparison studies. Findings may represent active exacerbation of inflammatory bowel disease. Worsening infectious process is difficult to exclude by imaging alone. 2. Right adnexal cyst measuring 3.7 cm in maximal diameter, slightly increased with respect to comparison exam when it measured 2.6 cm. Recommend follow-up ultrasound evaluation in 3 months. KUB Unchanged dilation of the transverse colon. Objective Assessment Fever Pancolitis on CT with loose stools. C. diff neg 10/22 and 10/27. stool studies neg. Nml lipase Diabetic ketoacidosis. PENICILLIN ALLERGY, HIVES AND THROAT SWELLING, but tolerates amoxicillin. Heart murmur. Recent dental cleaning with pre amoxicillin. Just finished steroids. Plan Plan of Care Zosyn, fluconazole, po vancomycin Probiotics Maintain hydration Monitor labs/temp PICC management Discussed with nursing Diarrhea has slowed some. Frustrated Will D/c Fluconazole Await further GI f/u Attending Co-Sign Attending Co-Sign The patient was seen and interviewed as well as examined at the bedside. The chart was reviewed. The case was discussed. Agree with the plan of care. ELENA ORTIZ APRN October 29, 2020 08:44 LANDY GUZMÁN MD October 29, 2020 11:59
--- NOTE | 2020-10-29 10:42 | PDOC ---
PROGRESS NOTES Date of Service: DATE: 10/29/20 TIME: 10:42 Chief Complaint Chief Complaint Nausea, vomiting, fever, and weakness. Found to be in DKA (blood sugar 900). Fever of unknown origin Pancolitis Pending repeat C. difficile History of Present Illness History of Present Illness Ms Zamarripa is 45yo F w/ PMHx anemia, uterine fibroids who presented to the ED via EMS from home due to progressive weakness with 8-10 episodes of diarrhea and emesis. She was unable to lift her arms or legs. She had a headache 710 as well as some nominal pain 7 out of 10. She had just recently finished treatment with amoxicillin and Medrol for dental caries last week. Very tearful she has no history that she knows of high blood sugar or diabetes. She follows at [facility]. Initially admitted to the ICU on DKA protocol with glucose over 900. 10/29/2020 emesis x 1 5-06 pm Status post rapid response 505 because of fever tachycardia and abdominal pain. Patient continues to have low-grade fevers. She does continue to complain of diffuse abdominal pain and diarrhea. We do recommend her to place a rectal tube and GI is okay with that. Pending CT abdomen pelvis per ID and continue with empiric IV antibiotics. does not have history of recent travel, hiking, camping or working outside. 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 Patient's chart, labs, images were reviewed and discussed with RN Flex sig may be needed if no improvement with oral vanco for C diff to assess for new onset Crohns/Ulcerative colitis with complications-megacolon development. 10/28/2020 emesis x 1 last night Status post rapid response 5-05 because of fever tachycardia and abdominal pain. Patient continues to have low-grade fevers. She does continue to complain of diffuse abdominal pain and diarrhea. We do recommend her to place a rectal tube and GI is okay with that. Pending CT abdomen pelvis per ID and continue with empiric IV antibiotics. Upon further questioning, patient does not have history of recent travel, hiking, camping or working outside. 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 Patient's chart, labs, images were reviewed and discussed with RN 10/27/2020 No acute events overnight. Status post rapid response last night because of fever tachycardia and abdominal pain. Patient continues to have low-grade fevers. She does continue to complain of diffuse abdominal pain and diarrhea. We do recommend her to place a rectal tube and GI is okay with that. Pending CT abdomen pelvis per ID and continue with empiric IV antibiotics. Upon further questioning, patient does not have history of recent travel, hiking, camping or working outside. She works at home mainly does not have any pets and works for the [employer] for [employer] services. Patient's chart, labs, images were reviewed and discussed with RN 10/26/2020: Pt. was seen and examined at bedside. Discussed case with RN. Discussed case with case packer. The chart was reviewed. She has no new concerns or complaints. The pt.'s mood appeared to be improved from yesterday. She was resting comfortably when we saw her. She states her diarrhea has not improved since she was admitted. She is negative for C. diff. 10/25/2020: Pt. was seen and examined at bedside. Discussed case with RN. Discussed case with case packer. The chart was reviewed. There was a code blue call last night, however, the pt. was found to be stable. This morning she was tired, weak, and tachycardic (HR: 119). She has no new concerns or complaints. The pt.'s mood appeared to be improved from yesterday. 10/22: Up and trying to eat, some anxiety and very emotional still. Went up on meal dose insulin. Transfer out of ICU. Bolus additional 1 liter NS Glucose in 200s K2.9. Still with abdominal pain today. D/w father bedside. Replace phos, mag, K Vitals Vitals Vital Signs Date Time Temp Pulse Resp B/P (MAP) Pulse Ox O2 Delivery O2 Flow Rate FiO2 10/29/20 08:00 Room Air 10/29/20 08:00 98.4 100 16 120/80 (93) 97 98.4 Physical Exam Physical Exam GENERAL: Propped up in bed, alert, no contact HEENT: Anicteric. Oropharynx,tongue piercing, otherwise oral cavity is clear. NECK: Supple. Good range of motion. No gross fullness. LUNGS: Clear to auscultation bilaterally. HEART: S1, S2. ABDOMEN: Distended with positive bowel sounds. Soft. tender EXTREMITIES: Without clubbing or cyanosis. No gross edema. SKIN: Warm to touch without generalized signs of rash. Multiple tattoos. NEUROLOGIC: Alert, nonfocal, PSYCHIATRIC: flat RUE-PIC (10/26) clean General: Alert, Oriented X3, Cooperative, No acute distress, mild distress, Other (General affect was improved from yesetday) Heart: Regular rate Abdomen: No tenderness Extremities: No clubbing, No cyanosis, No edema, Normal pulses Skin: No rashes, No breakdown Labs LABS DERED: BCULT Procedure Result -- BLOOD CULTURE Preliminary NO GROWTH AFTER 3 DAYS Laboratory Tests Test 10/28/20 10:51 10/28/20 16:19 10/28/20 20:36 10/29/20 05:45 Glucose (Fingerstick) 195 mg/dL (70-99) 225 mg/dL (70-99) 196 mg/dL (70-99) White Blood Count 5.8 x10^3/uL (4.0-11.0) Red Blood Count 3.29 x10^6/uL (3.50-5.40) Hemoglobin 8.2 g/dL (12.0-15.5) Hematocrit 26.0 % (36.0-47.0) Mean Corpuscular Volume 79 fL (79-100) Mean Corpuscular Hemoglobin 25 pg (25-35) Mean Corpuscular Hemoglobin Concent 32 g/dL (31-37) Red Cell Distribution Width 14.7 % (11.5-14.5) Platelet Count 381 x10^3/uL (140-400) Neutrophils (%) (Auto) 72 % (31-73) Lymphocytes (%) (Auto) 13 % (24-48) Monocytes (%) (Auto) 13 % (0-9) Eosinophils (%) (Auto) 2 % (0-3) Basophils (%) (Auto) 0 % (0-3) Neutrophils # (Auto) 4.2 x10^3/uL (1.8-7.7) Lymphocytes # (Auto) 0.7 x10^3/uL (1.0-4.8) Monocytes # (Auto) 0.8 x10^3/uL (0.0-1.1) Eosinophils # (Auto) 0.1 x10^3/uL (0.0-0.7) Basophils # (Auto) 0.0 x10^3/uL (0.0-0.2) Sodium Level 142 mmol/L (136-145) Potassium Level 3.5 mmol/L (3.5-5.1) Chloride Level 109 mmol/L (98-107) Carbon Dioxide Level 24 mmol/L (21-32) Anion Gap 9 (6-14) Blood Urea Nitrogen 2 mg/dL (7-20) Creatinine 0.6 mg/dL (0.6-1.0) Estimated GFR (Cockcroft-Gault) 130.8 Glucose Level 197 mg/dL (70-99) Calcium Level 7.5 mg/dL (8.5-10.1) Assessment and Plan Assessmemt and Plan Problems Medical Problems: (1) DKA (diabetic ketoacidoses) Status: Acute (2) Pancreatitis Status: Acute (3) Sepsis Status: Acute Comment Review of Relevant I have reviewed the following items allyssa (where applicable) has been applied. Labs Laboratory Tests Test 10/27/20 10:56 10/27/20 13:30 10/27/20 16:32 10/27/20 21:12 Glucose (Fingerstick) 176 mg/dL (70-99) 136 mg/dL (70-99) 174 mg/dL (70-99) Stool Campylobacter PCR Negative (NEGATIVE) Stool E. coli Shiga Toxins (PCR) Negative (NEGATIVE) Stool Salmonella PCR Negative (NEGATIVE) Stool Shigella PCR Negative (NEGATIVE) Clostridium difficile Toxin (PCR) Negative (NEGATIVE) Test 10/28/20 05:35 10/28/20 07:04 10/28/20 10:51 10/28/20 16:19 White Blood Count 6.2 x10^3/uL (4.0-11.0) Red Blood Count 3.46 x10^6/uL (3.50-5.40) Hemoglobin 8.8 g/dL (12.0-15.5) Hematocrit 27.5 % (36.0-47.0) Mean Corpuscular Volume 80 fL (79-100) Mean Corpuscular Hemoglobin 25 pg (25-35) Mean Corpuscular Hemoglobin Concent 32 g/dL (31-37) Red Cell Distribution Width 15.0 % (11.5-14.5) Platelet Count 373 x10^3/uL (140-400) Neutrophils (%) (Auto) 77 % (31-73) Lymphocytes (%) (Auto) 8 % (24-48) Monocytes (%) (Auto) 13 % (0-9) Eosinophils (%) (Auto) 2 % (0-3) Basophils (%) (Auto) 0 % (0-3) Neutrophils # (Auto) 4.8 x10^3/uL (1.8-7.7) Lymphocytes # (Auto) 0.5 x10^3/uL (1.0-4.8) Monocytes # (Auto) 0.8 x10^3/uL (0.0-1.1) Eosinophils # (Auto) 0.1 x10^3/uL (0.0-0.7) Basophils # (Auto) 0.0 x10^3/uL (0.0-0.2) Sodium Level 143 mmol/L (136-145) Potassium Level 2.7 mmol/L (3.5-5.1) Chloride Level 106 mmol/L (98-107) Carbon Dioxide Level 23 mmol/L (21-32) Anion Gap 14 (6-14) Blood Urea Nitrogen 4 mg/dL (7-20) Creatinine 0.6 mg/dL (0.6-1.0) Estimated GFR (Cockcroft-Gault) 130.8 Glucose Level 170 mg/dL (70-99) Calcium Level 7.8 mg/dL (8.5-10.1) Magnesium Level 2.1 mg/dL (1.8-2.4) Glucose (Fingerstick) 164 mg/dL (70-99) 195 mg/dL (70-99) 225 mg/dL (70-99) Test 10/28/20 20:36 10/29/20 05:45 Glucose (Fingerstick) 196 mg/dL (70-99) White Blood Count 5.8 x10^3/uL (4.0-11.0) Red Blood Count 3.29 x10^6/uL (3.50-5.40) Hemoglobin 8.2 g/dL (12.0-15.5) Hematocrit 26.0 % (36.0-47.0) Mean Corpuscular Volume 79 fL (79-100) Mean Corpuscular Hemoglobin 25 pg (25-35) Mean Corpuscular Hemoglobin Concent 32 g/dL (31-37) Red Cell Distribution Width 14.7 % (11.5-14.5) Platelet Count 381 x10^3/uL (140-400) Neutrophils (%) (Auto) 72 % (31-73) Lymphocytes (%) (Auto) 13 % (24-48) Monocytes (%) (Auto) 13 % (0-9) Eosinophils (%) (Auto) 2 % (0-3) Basophils (%) (Auto) 0 % (0-3) Neutrophils # (Auto) 4.2 x10^3/uL (1.8-7.7) Lymphocytes # (Auto) 0.7 x10^3/uL (1.0-4.8) Monocytes # (Auto) 0.8 x10^3/uL (0.0-1.1) Eosinophils # (Auto) 0.1 x10^3/uL (0.0-0.7) Basophils # (Auto) 0.0 x10^3/uL (0.0-0.2) Sodium Level 142 mmol/L (136-145) Potassium Level 3.5 mmol/L (3.5-5.1) Chloride Level 109 mmol/L (98-107) Carbon Dioxide Level 24 mmol/L (21-32) Anion Gap 9 (6-14) Blood Urea Nitrogen 2 mg/dL (7-20) Creatinine 0.6 mg/dL (0.6-1.0) Estimated GFR (Cockcroft-Gault) 130.8 Glucose Level 197 mg/dL (70-99) Calcium Level 7.5 mg/dL (8.5-10.1) Laboratory Tests Test 10/28/20 10:51 10/28/20 16:19 10/28/20 20:36 10/29/20 05:45 Glucose (Fingerstick) 195 mg/dL (70-99) 225 mg/dL (70-99) 196 mg/dL (70-99) White Blood Count 5.8 x10^3/uL (4.0-11.0) Red Blood Count 3.29 x10^6/uL (3.50-5.40) Hemoglobin 8.2 g/dL (12.0-15.5) Hematocrit 26.0 % (36.0-47.0) Mean Corpuscular Volume 79 fL (79-100) Mean Corpuscular Hemoglobin 25 pg (25-35) Mean Corpuscular Hemoglobin Concent 32 g/dL (31-37) Red Cell Distribution Width 14.7 % (11.5-14.5) Platelet Count 381 x10^3/uL (140-400) Neutrophils (%) (Auto) 72 % (31-73) Lymphocytes (%) (Auto) 13 % (24-48) Monocytes (%) (Auto) 13 % (0-9) Eosinophils (%) (Auto) 2 % (0-3) Basophils (%) (Auto) 0 % (0-3) Neutrophils # (Auto) 4.2 x10^3/uL (1.8-7.7) Lymphocytes # (Auto) 0.7 x10^3/uL (1.0-4.8) Monocytes # (Auto) 0.8 x10^3/uL (0.0-1.1) Eosinophils # (Auto) 0.1 x10^3/uL (0.0-0.7) Basophils # (Auto) 0.0 x10^3/uL (0.0-0.2) Sodium Level 142 mmol/L (136-145) Potassium Level 3.5 mmol/L (3.5-5.1) Chloride Level 109 mmol/L (98-107) Carbon Dioxide Level 24 mmol/L (21-32) Anion Gap 9 (6-14) Blood Urea Nitrogen 2 mg/dL (7-20) Creatinine 0.6 mg/dL (0.6-1.0) Estimated GFR (Cockcroft-Gault) 130.8 Glucose Level 197 mg/dL (70-99) Calcium Level 7.5 mg/dL (8.5-10.1) Microbiology 10/26/20 Blood Culture - Preliminary, Resulted NO GROWTH AFTER 2 DAYS Medications Current Medications Sodium Chloride 1,000 ml @ 1,000 mls/hr 1X ONCE IV Last administered on 10/21/20at 10:22; Start 10/21/20 at 09:40; Stop 10/21/20 at 10:39; Status DC Sodium Chloride 1,000 ml @ 1,000 mls/hr 1X ONCE IV Last administered on 10/21/20at 10:22; Start 10/21/20 at 09:40; Stop 10/21/20 at 10:39; Status DC Acetaminophen (Tylenol) 650 mg 1X ONCE PO Last administered on 10/21/20at 10:23; Start 10/21/20 at 09:45; Stop 10/21/20 at 09:46; Status DC Ringer's Solution 500 ml @ 500 mls/hr 1X ONCE IV Last administered on 10/21/20at 10:45; Start 10/21/20 at 10:45; Stop 10/21/20 at 11:44; Status DC Hydromorphone HCl (Dilaudid) 0.5 mg 1X ONCE IVP ; Start 10/21/20 at 12:00; Stop 10/21/20 at 19:02; Status DC Dextrose/Sodium Chloride 1,000 ml @ 250 mls/hr Q4H IV ; Start 10/21/20 at 12:1 5; Stop 10/21/20 at 12:40; Status DC Insulin Human Regular 100 unit/ Sodium Chloride 101 ml @ 0 mls/hr CONT PRN PRN IV PER PROTOCOL Last administered on 10/21/20at 13:45; Start 10/21/20 at 12:15; Stop 10/23/20 at 09:37; Status DC Potassium Chloride/Water 100 ml @ 100 mls/hr PRN Q1HR PRN IV SEE COMMENTS; Start 10/21/20 at 12:15; Stop 10/23/20 at 09:37; Status DC Potassium Chloride/Water 100 ml @ 100 mls/hr PRN Q1HR PRN IV SEE COMMENTS; Start 10/21/20 at 12:15; Stop 10/23/20 at 09:37; Status DC Potassium Chloride/Water 100 ml @ 100 mls/hr PRN Q1HR PRN IV SEE COMMENTS; Start 10/21/20 at 12:15; Stop 10/23/20 at 09:37; Status DC Iohexol (Omnipaque 300 Mg/ml) 60 ml 1X ONCE IV ; Start 10/21/20 at 12:15; Stop 10/21/20 at 12:16; Status UNV Iohexol (Omnipaque 350 Mg/ml) 90 ml 1X ONCE IV Last administered on 10/21/20at 12:50; Start 10/21/20 at 12:15; Stop 10/21/20 at 12:18; Status DC Insulin Human Regular 100 ml @ 0 mls/hr 1X ONCE IV Last administered on 10/21/20at 12:45; Start 10/21/20 at 12:45; Stop 10/21/20 at 12:46; Status DC Sodium Chloride 1,000 ml @ 250 mls/hr Q4H IV ; Start 10/21/20 at 12:45; Stop 10/21/20 at 14:38; Status DC Lorazepam (Ativan Inj) 1 mg PRN Q4HRS PRN IVP ANXIETY / AGITATION Last administered on 10/21/20at 21:43; Start 10/21/20 at 14:30 Enoxaparin Sodium (Lovenox Per Pharmacy Prophylaxis Dosing) 1 each PRN DAILY PRN MC SEE COMMENTS; Start 10/21/20 at 14:30 Enoxaparin Sodium (Lovenox 40mg Syringe) 40 mg Q24H SQ Last administered on 10/28/20at 16:25; Start 10/21/20 at 15:00 Sodium Chloride 1,000 ml @ 250 mls/hr Q4H IV Last administered on 10/21/20at 15:28; Start 10/21/20 at 14:45; Stop 10/23/20 at 09:37; Status DC Dextrose/Sodium Chloride 1,000 ml @ 250 mls/hr Q4H IV Last administered on 10/22/20at 06:31; Start 10/21/20 at 18:00; Stop 10/22/20 at 09:14; Status DC Potassium Phosphate 20 mmol/ Sodium Chloride 506.6667 ml @ 125 mls/hr 1X ONCE IV Last administered on 10/21/20at 18:02; Start 10/21/20 at 18:00; Stop 10/21/20 at 22:03; Status DC Insulin Glargine (Lantus Syringe) 12 unit QHS SQ Last administered on 10/28/20at 20:42; Start 10/21/20 at 21:00 Insulin Human Lispro (HumaLOG) 0-9 UNITS TIDWMEALS SQ Last administered on 10/29/20at 08:31; Start 10/22/20 at 08:00 Dextrose (Dextrose 50%-Water Syringe) 12.5 gm PRN Q15MIN PRN IV SEE COMMENTS; Start 10/21/20 at 19:00 Insulin Human Lispro (HumaLOG) 3 units TIDAC SQ Last administered on 10/22/20at 08:47; Start 10/22/20 at 07:30; Stop 10/22/20 at 09:13; Status DC Insulin Human Lispro (HumaLOG) 6 units TIDAC SQ Last administered on 10/29/20at 08:32; Start 10/22/20 at 11:30 Sodium Chloride 1,000 ml @ 1,000 mls/hr 1X ONCE IV Last administered on 10/22/20at 09:45; Start 10/22/20 at 09:30; Stop 10/22/20 at 10:29; Status DC Sodium Chloride 1,000 ml @ 100 mls/hr Q10H IV Last administered on 10/29/20at 05:37; Start 10/22/20 at 11:00 Ondansetron HCl (Zofran) 4 mg PRN Q6HRS PRN IVP NAUSEA/VOMITING Last administered on 10/28/20at 16:36; Start 10/22/20 at 11:00 Acetaminophen (Tylenol) 650 mg PRN Q6HRS PRN PO MILD PAIN / TEMP > 100.3'F Last administered on 10/28/20at 11:25; Start 10/22/20 at 11:00 Potassium Chloride (Klor-Con) 20 meq 1X ONCE PO Last administered on 10/22/20at 15:40; Start 10/22/20 at 14:45; Stop 10/22/20 at 14:46; Status DC Potassium Chloride (Klor-Con) 40 meq 1X ONCE PO Last administered on 10/23/20at 06:00; Start 10/23/20 at 06:00; Stop 10/23/20 at 06:01; Status DC Potassium Chloride (Klor-Con) 40 meq 1X ONCE PO Last administered on 10/23/20at 09:06; Start 10/23/20 at 10:00; Stop 10/23/20 at 10:01; Status DC Potassium Chloride/Water 100 ml @ 100 mls/hr Q1H IV Last administered on 10/23/20at 18:43; Start 10/23/20 at 10:30; Stop 10/23/20 at 12:29; Status DC Magnesium Sulfate 50 ml @ 25 mls/hr 1X ONCE IV Last administered on 10/23/20at 15:36; Start 10/23/20 at 11:00; Stop 10/23/20 at 12:59; Status DC Potassium Phosphate 13.6 mmol/Sodium Chloride 254.5333 ml @ 127.... 1X ONCE IV Last administered on 10/23/20at 23:14; Start 10/23/20 at 13:00; Stop 10/23/20 at 14:59; Status DC Ketorolac Tromethamine (Toradol 15mg Vial) 15 mg PRN Q6HRS PRN IVP INFLAMMATION Last administered on 10/28/20at 10:00; Start 10/23/20 at 10:30; Stop 10/28/20 at 10:29; Status DC Potassium Bicarbonate (Potassium Effervescent Tablet) 40 meq 1X ONCE PO Last administered on 10/23/20at 12:11; Start 10/23/20 at 10:30; Stop 10/23/20 at 10:34; Status DC Ibuprofen (Motrin) 400 mg 1X ONCE PO Last administered on 10/23/20at 21:00; Start 10/23/20 at 20:15; Stop 10/23/20 at 20:16; Status DC Levofloxacin/ Dextrose 100 ml @ 100 mls/hr 1X ONCE IV Last administered on 10/23/20at 20:27; Start 10/23/20 at 21:00; Stop 10/23/20 at 21:59; Status DC Sodium Chloride (Normal Saline Flush) 10 ml QSHIFT PRN IV AFTER MEDS AND BLOOD DRAWS; Start 10/24/20 at 07:45 Sodium Chloride (Normal Saline Flush) 10 ml PRN Q5MIN PRN IV AFTER MEDS AND BLOOD DRAWS; Start 10/24/20 at 07:45 Sodium Chloride (Normal Saline Flush) 20 ml PRN Q5MIN PRN IV AFTER MEDS AND BLOOD DRAWS; Start 10/24/20 at 07:45 Lidocaine HCl (Buffered Lidocaine 1%) 6 ml 1X ONCE INJ ; Start 10/24/20 at 09:30; Stop 10/24/20 at 09:31; Status DC Amoxicillin/ Clavulanate Potassium (Augmentin 875/ 125mg) 1 tab BID PO Last administered on 10/26/20at 09:17; Start 10/24/20 at 11:30; Stop 10/26/20 at 12:42; Status DC Lactobacillus Rhamnosus (Culturelle) 1 cap BID PO Last administered on 10/29/20at 08:21; Start 10/24/20 at 21:00 Potassium Chloride (Klor-Con) 40 meq 1X ONCE PO Last administered on 10/25/20at 07:03; Start 10/25/20 at 06:45; Stop 10/25/20 at 06:50; Status DC Potassium Bicarbonate (Potassium Effervescent Tablet) 40 meq 1X ONCE PO Last administered on 10/25/20at 11:58; Start 10/25/20 at 12:00; Stop 10/25/20 at 12:01; Status DC Potassium Chloride (Klor-Con) 40 meq 1X ONCE PO Last administered on 10/25/20at 12:00; Start 10/25/20 at 12:00; Stop 10/25/20 at 12:10; Status DC Potassium Chloride/Water 100 ml @ 100 mls/hr Q1H IV Last administered on 10/25/20at 20:32; Start 10/25/20 at 15:30; Stop 10/25/20 at 19:29; Status DC Potassium Bicarbonate (Potassium Effervescent Tablet) 40 meq 1X ONCE PO Last administered on 10/26/20at 09:17; Start 10/26/20 at 08:30; Stop 10/26/20 at 08:31; Status DC Loperamide HCl (Imodium) 2 mg PRN Q15MIN PRN PO DIARRHEA Last administered on 10/27/20at 04:24; Start 10/26/20 at 09:15; Stop 10/27/20 at 13:20; Status DC Vancomycin HCl (Vanco Per Pharmacy) 1 each PRN DAILY PRN MC SEE COMMENTS; Start 10/26/20 at 12:45; Stop 10/26/20 at 13:53; Status DC Piperacillin Sod/ Tazobactam Sod (Zosyn Per Pharmacy) 1 each PRN DAILY PRN MC SEE COMMENTS; Start 10/26/20 at 12:45 Piperacillin Sod/ Tazobactam Sod 3.375 gm/Sodium Chloride 50 ml @ 100 mls/hr Q6HRS IV Last administered on 10/29/20at 05:23; Start 10/26/20 at 18:00 Vancomycin HCl 1.5 gm/Sodium Chloride 500 ml @ 250 mls/hr 1X ONCE IV ; Start 10/26/20 at 14:00; Stop 10/26/20 at 15:59; Status Cancel Pantoprazole Sodium (Protonix) 40 mg DAILYAC PO Last administered on 10/27/20at 07:51; Start 10/27/20 at 07:30; Stop 10/27/20 at 08:54; Status DC Fluconazole/ Sodium Chloride 200 ml @ 100 mls/hr Q24H IV Last administered on 10/28/20at 13:33; Start 10/26/20 at 14:00 Daptomycin 390 mg/ Sodium Chloride 50 ml @ 100 mls/hr Q24H IV Last admini stered on 10/26/20at 16:54; Start 10/26/20 at 15:00; Stop 10/27/20 at 13:22; Status DC Metronidazole 100 ml @ 100 mls/hr Q8HRS IV Last administered on 10/28/20at 06:23; Start 10/26/20 at 14:00; Stop 10/28/20 at 13:29; Status DC Potassium Chloride (Klor-Con) 40 meq 1X ONCE PO Last administered on 10/27/20at 07:54; Start 10/27/20 at 07:15; Stop 10/27/20 at 07:16; Status DC Pantoprazole Sodium (PROTONIX VIAL for IV PUSH) 40 mg DAILYAC IVP Last administered on 10/29/20at 08:22; Start 10/28/20 at 07:30 Iohexol (Omnipaque 300 Mg/ml) 75 ml 1X ONCE IV Last administered on 10/27/20at 09:29; Start 10/27/20 at 09:15; Stop 10/27/20 at 09:16; Status DC Info (CONTRAST GIVEN -- Rx MONITORING) 1 each PRN DAILY PRN MC SEE COMMENTS; Start 10/27/20 at 09:15; Stop 10/29/20 at 09:14; Status DC Vancomycin HCl (Vancomycin Oral Solution) 125 mg [id number] PO Last administered on 10/29/20at 08:22; Start 10/27/20 at 17:00 Potassium Chloride/Water 100 ml @ 100 mls/hr Q1H IV Last administered on 10/28/20at 12:11; Start 10/28/20 at 07:30; Stop 10/28/20 at 12:29; Status DC Potassium Chloride (Klor-Con) 20 meq TIDWMEALS PO Last administered on 10/29/20at 08:22; Start 10/28/20 at 08:00 Ketorolac Tromethamine (Toradol 15mg Vial) 15 mg PRN Q6HRS PRN IVP INFLAMMATION Last administered on 10/28/20at 23:48; Start 10/28/20 at 15:00; Stop 11/02/20 at 14:59 Active Scripts Active Ondansetron Odt (Ondansetron) 4 Mg Tab.rapdis 1 Tab PO PRN Q6-8HRS Pepcid (Famotidine) 20 Mg Tablet 20 Mg PO BID Carafate (Sucralfate) 1 Gm/10 Ml Oral.susp 10 Ml PO QID 30 Days before food Cyclobenzaprine Hcl 10 Mg Tablet 1 Tab PO TID Naproxen 500 Mg Tablet 1 Tab PO BID Vitals/I & O Vital Sign - Last 24 Hours 10/28/20 10/28/20 10/28/20 10/28/20 14:53 19:20 20:00 23:23 Temp 98.1 99.2 99.5 98.1 99.2 99.5 Pulse 104 119 112 Resp 18 18 18 B/P (MAP) 99/64 (76) 110/59 (76) 114/70 (85) Pulse Ox 96 97 96 O2 Delivery Room Air Room Air Room Air Room Air 10/29/20 10/29/20 10/29/20 03:19 08:00 08:00 Temp 98.4 98.4 98.4 98.4 Pulse 95 100 Resp 18 16 B/P (MAP) 114/79 (91) 120/80 (93) Pulse Ox 98 97 O2 Delivery Room Air Room Air Room Air Intake and Output 10/28/20 10/28/20 10/29/20 15:00 23:00 07:00 Intake Total 150 ml 1290 ml Output Total 3 ml Balance 150 ml 1287 ml Justicifation of Admission Dx: Justifications for Admission: Justification of Admission Dx: Yes TARSHA WILKERSON MD October 29, 2020 10:42
[2020-10-29 11:07] VITALS: BP 122/68
[2020-10-29 15:00] VITALS: BP 102/60
[2020-10-29] MEDS: ENOXAPARIN 40 MG/0.4 ML SYRINGE. SQ SCH (17:07)
[2020-10-29 20:00] VITALS: BP 98/56
[2020-10-29] MEDS: INSULIN GLARGINE SYRINGE. SQ SCH (21:10)
[2020-10-29 23:00] VITALS: BP 114/70
[2020-10-29] MEDS: KETOROLAC 15 MG/ML VIAL. IVP PRN (23:36)
[2020-10-30 03:32] VITALS: BP 106/55
[2020-10-30 05:40] LABS: BASO % 0 % (0-3); EOS # 0.2 x10^3/uL (0.0-0.7); EOS % 4 % (0-3); HEMATOCRIT 23.9 % (36.0-47.0); HEMOGLOBIN 7.9 g/dL (12.0-15.5); LYMPH # 0.8 x10^3/uL (1.0-4.8); LYMPH % 19 % (24-48); MEAN CORPUSCULAR HEMOGLOBIN 26 pg (25-35); MEAN CORPUSCULAR HGB CONC 33 g/dL (31-37); MEAN CORPUSCULAR VOLUME 79 fL (79-100); MONO # 0.7 x10^3/uL (0.0-1.1); MONO % 15 % (0-9); NEUT # 2.7 x10^3/uL (1.8-7.7); NEUT % 62 % (31-73); PLATELET COUNT 357 x10^3/uL (140-400); RED BLOOD COUNT 3.03 x10^6/uL (3.50-5.40); RED CELL DISTRIBUTION WIDTH 14.5 % (11.5-14.5); WHITE BLOOD COUNT 4.3 x10^3/uL (4.0-11.0)
[2020-10-30 05:48] LABS: CALCIUM 7.5 mg/dL (8.5-10.1); CREATININE 0.5 mg/dL (0.6-1.0); GFR 161.4; POTASSIUM 3.4 mmol/L (3.5-5.1)
[2020-10-30] MEDS: IV NORMAL SALINE 1000ML BAG 1,000 ML IV SCH ×2 (06:02→15:25)
[2020-10-30] MEDS: PIPERACILLIN/TAZOBACTAM 3.375 GM in IV NORMAL SALINE 50ML 50 ML IV SCH ×4 (06:02→23:31)
--- NOTE | 2020-10-30 06:23 | PDOC ---
Infectious Disease Note Subjective Subjective Less diarrhea but still some incontinence, bloating and cramps Eating more. ambulating more No fevers in nearly 24 hrs some sweats but under a number of blankets ROS ROS o/w neg Vital Sign Vital Signs Vital Signs Date Time Temp Pulse Resp B/P (MAP) Pulse Ox O2 Delivery O2 Flow Rate FiO2 10/30/20 03:32 98.0 92 16 106/55 (72) 92 Room Air 98.0 Physical Exam PHYSICAL EXAM GENERAL: Propped up in bed, alert, looks some better HEENT: Anicteric. Oropharynx,tongue piercing, otherwise oral cavity is clear. NECK: Supple. Good range of motion. No gross fullness. LUNGS: Clear to auscultation bilaterally. HEART: S1, S2. ABDOMEN: Less distended with positive bowel sounds. Soft. tender EXTREMITIES: Without clubbing or cyanosis. No gross edema. SKIN: Warm to touch without generalized signs of rash. Multiple tattoos. NEUROLOGIC: Alert, nonfocal, PSYCHIATRIC: flat RUE-PICC (10/26) clean Labs Lab Laboratory Tests Test 10/29/20 10:47 10/29/20 16:52 10/29/20 20:53 10/30/20 04:50 Glucose (Fingerstick) 150 mg/dL (70-99) 229 mg/dL (70-99) 167 mg/dL (70-99) Sodium Level 142 mmol/L (136-145) Potassium Level 3.4 mmol/L (3.5-5.1) Chloride Level 109 mmol/L (98-107) Carbon Dioxide Level 26 mmol/L (21-32) Anion Gap 7 (6-14) Blood Urea Nitrogen 3 mg/dL (7-20) Creatinine 0.5 mg/dL (0.6-1.0) Estimated GFR (Cockcroft-Gault) 161.4 Glucose Level 208 mg/dL (70-99) Calcium Level 7.5 mg/dL (8.5-10.1) Micro Microbiology 10/23/20 Blood Culture - Preliminary, Resulted NO GROWTH AFTER 2 DAYS Objective Assessment Fever - overall curve better. Under a number of covers last pm ? colitis with loose stools - c-diff neg and stool studies neg DKA PCN allergy - hives and throat swelling but tolerates Amoxicillin Heart murmur Recent dental cleaning with pre Amox Just finished steroids Plan Plan of Care Diarrhea has slowed some. Frustrated D/c Fluconazole 10/29 Await further GI f/u ? scope Zosyn, po vancomycin Probiotics Maintain hydration Monitor labs/temp PICC management per primary LANDY GUZMÁN MD October 30, 2020 06:23
[2020-10-30 08:00] VITALS: BP_SYST 121; BP_SYST 130; BP_DIAS 79; BP_DIAS 83
[2020-10-30] MEDS: POTASSIUM CHLORIDE 20 MEQ TABLET.ER. PO SCH ×3 (08:06→17:50)
[2020-10-30] MEDS: VANCOMYCIN 125 MG/2.5 ML ORAL SOLUTION. PO SCH ×4 (08:06→20:27)
[2020-10-30] MEDS: LACTOBACILLUS RHAMNOSUS GG 1 CAPSULE. PO SCH ×2 (08:06→20:27)
[2020-10-30] MEDS: PANTOPRAZOLE IV PUSH 40 MG VIAL. IVP SCH (08:07)
[2020-10-30] MEDS: INSULIN LISPRO 300 UNITS/3 ML VIAL. SQ SCH ×6 (08:13→17:57)
[2020-10-30 11:00] VITALS: BP 124/68
--- NOTE | 2020-10-30 11:21 | PDOC ---
PROGRESS NOTES Date of Service: DATE: 10/30/20 TIME: 11:21 Chief Complaint Chief Complaint Nausea, vomiting, fever, and weakness. Found to be in DKA (blood sugar 900). Fever of unknown origin Pancolitis Pending repeat C. difficile History of Present Illness History of Present Illness Ms Zamarripa is 45yo F w/ PMHx anemia, uterine fibroids who presented to the ED via EMS from home due to progressive weakness with 8-10 episodes of diarrhea and emesis. She was unable to lift her arms or legs. She had a headache 710 as well as some nominal pain 7 out of 10. She had just recently finished treatment with amoxicillin and Medrol for dental caries last week. Very tearful she has no history that she knows of high blood sugar or diabetes. She follows at [facility]. Initially admitted to the ICU on DKA protocol with glucose over 900. 10/30/2020 emesis x 1 5-06 pm Status post rapid response 10-26 because of fever tachycardia and abdominal pain. Patient continues to have low-grade fevers. She does continue to complain of diffuse abdominal pain and diarrhea. We do recommend her to place a rectal tube and GI is okay with that. Pending CT abdomen pelvis per ID and continue with empiric IV antibiotics. does not have history of recent travel, hiking, camping or working outside. She works at home mainly does not have any pets and works for the [employer] for [employer] services. Patient's chart, labs, images were reviewed and discussed with DAIJA Barrientos/radhika Fluconazole 10/29 Await further GI f/u ? scope CONTINUE Zosyn, po vancomycin Probiotics d/w rn 10/29/2020 emesis x 1 5-06 pm Status post rapid response 10-26 because of fever tachycardia and abdominal pain. Patient continues to have low-grade fevers. She does continue to complain of diffuse abdominal pain and diarrhea. We do recommend her to place a rectal tube and GI is okay with that. Pending CT abdomen pelvis per ID and continue with empiric IV antibiotics. does not have history of recent travel, hiking, camping or working outside. She works at home mainly does not have any pets and works for the [employer] for [employer] services. Patient's chart, labs, images were reviewed and discussed with DAIJA Flex sig may be needed if no improvement with oral vanco for C diff to assess for new onset Crohns/Ulcerative colitis with complications-megacolon development. 10/28/2020 emesis x 1 last night Status post rapid response 5-05 because of fever tachycardia and abdominal pain. Patient continues to have low-grade fevers. She does continue to complain of diffuse abdominal pain and diarrhea. We do recommend her to place a rectal tube and GI is okay with that. Pending CT abdomen pelvis per ID and continue with empiric IV antibiotics. Upon further questioning, patient does not have history of recent travel, hiking, camping or working outside. She works at home mainly does not have any pets and works for the [employer] for [employer] services. Patient's chart, labs, images were reviewed and discussed with RN 10/27/2020 No acute events overnight. Status post rapid response last night because of fever tachycardia and abdominal pain. Patient continues to have low-grade fevers. She does continue to complain of diffuse abdominal pain and diarrhea. We do recommend her to place a rectal tube and GI is okay with that. Pending CT abdomen pelvis per ID and continue with empiric IV antibiotics. Upon further questioning, patient does not have history of recent travel, hiking, camping or working outside. She works at home mainly does not have any pets and works for the [employer] for [employer] services. Patient's chart, labs, images were reviewed and discussed with RN 10/26/2020: Pt. was seen and examined at bedside. Discussed case with RN. Discussed case with casework specialist. The chart was reviewed. She has no new concerns or complaints. The pt.'s mood appeared to be improved from yesterday. She was resting comfortably when we saw her. She states her diarrhea has not improved since she was admitted. She is negative for C. diff. 10/25/2020: Pt. was seen and examined at bedside. Discussed case with RN. Discussed case with casework specialist. The chart was reviewed. There was a code blue call last night, however, the pt. was found to be stable. This morning she was tired, weak, and tachycardic (HR: 119). She has no new concerns or complaints. The pt.'s mood appeared to be improved from yesterday. 10/22: Up and trying to eat, some anxiety and very emotional still. Went up on meal dose insulin. Transfer out of ICU. Bolus additional 1 liter NS Glucose in 200s K2.9. Still with abdominal pain today. D/w father bedside. Replace phos, mag, K Vitals Vitals Vital Signs Date Time Temp Pulse Resp B/P (MAP) Pulse Ox O2 Delivery O2 Flow Rate FiO2 10/30/20 08:00 Room Air 10/30/20 08:00 97.9 93 16 130/83 (99) 100 97.9 Physical Exam Physical Exam GENERAL: Propped up in bed, alert, looks some better HEENT: Anicteric. Oropharynx,tongue piercing, otherwise oral cavity is clear. NECK: Supple. Good range of motion. No gross fullness. LUNGS: Clear to auscultation bilaterally. HEART: S1, S2. ABDOMEN: Less distended with positive bowel sounds. Soft. tender EXTREMITIES: Without clubbing or cyanosis. No gross edema. SKIN: Warm to touch without generalized signs of rash. Multiple tattoos. NEUROLOGIC: Alert, nonfocal, PSYCHIATRIC: flat RUE-PICC (10/26) clean General: Alert, Oriented X3, Cooperative, No acute distress, mild distress, Other (General affect was improved from yesetday) Heart: Regular rate Abdomen: No tenderness Extremities: No clubbing, No cyanosis, No edema, Normal pulses Skin: No rashes, No breakdown Labs LABS Laboratory Tests Test 10/29/20 16:52 10/29/20 20:53 10/30/20 04:50 10/30/20 07:49 Glucose (Fingerstick) 229 mg/dL (70-99) 167 mg/dL (70-99) 204 mg/dL (70-99) White Blood Count 4.3 x10^3/uL (4.0-11.0) Red Blood Count 3.03 x10^6/uL (3.50-5.40) Hemoglobin 7.9 g/dL (12.0-15.5) Hematocrit 23.9 % (36.0-47.0) Mean Corpuscular Volume 79 fL (79-100) Mean Corpuscular Hemoglobin 26 pg (25-35) Mean Corpuscular Hemoglobin Concent 33 g/dL (31-37) Red Cell Distribution Width 14.5 % (11.5-14.5) Platelet Count 357 x10^3/uL (140-400) Neutrophils (%) (Auto) 62 % (31-73) Lymphocytes (%) (Auto) 19 % (24-48) Monocytes (%) (Auto) 15 % (0-9) Eosinophils (%) (Auto) 4 % (0-3) Basophils (%) (Auto) 0 % (0-3) Neutrophils # (Auto) 2.7 x10^3/uL (1.8-7.7) Lymphocytes # (Auto) 0.8 x10^3/uL (1.0-4.8) Monocytes # (Auto) 0.7 x10^3/uL (0.0-1.1) Eosinophils # (Auto) 0.2 x10^3/uL (0.0-0.7) Basophils # (Auto) 0.0 x10^3/uL (0.0-0.2) Sodium Level 142 mmol/L (136-145) Potassium Level 3.4 mmol/L (3.5-5.1) Chloride Level 109 mmol/L (98-107) Carbon Dioxide Level 26 mmol/L (21-32) Anion Gap 7 (6-14) Blood Urea Nitrogen 3 mg/dL (7-20) Creatinine 0.5 mg/dL (0.6-1.0) Estimated GFR (Cockcroft-Gault) 161.4 Glucose Level 208 mg/dL (70-99) Calcium Level 7.5 mg/dL (8.5-10.1) Assessment and Plan Assessmemt and Plan Problems Medical Problems: (1) DKA (diabetic ketoacidoses) Status: Acute (2) Pancreatitis Status: Acute (3) Sepsis Status: Acute Comment Review of Relevant I have reviewed the following items allyssa (where applicable) has been applied. Labs Laboratory Tests Test 10/28/20 16:19 10/28/20 20:36 10/29/20 05:45 10/29/20 10:47 Glucose (Fingerstick) 225 mg/dL (70-99) 196 mg/dL (70-99) 150 mg/dL (70-99) White Blood Count 5.8 x10^3/uL (4.0-11.0) Red Blood Count 3.29 x10^6/uL (3.50-5.40) Hemoglobin 8.2 g/dL (12.0-15.5) Hematocrit 26.0 % (36.0-47.0) Mean Corpuscular Volume 79 fL (79-100) Mean Corpuscular Hemoglobin 25 pg (25-35) Mean Corpuscular Hemoglobin Concent 32 g/dL (31-37) Red Cell Distribution Width 14.7 % (11.5-14.5) Platelet Count 381 x10^3/uL (140-400) Neutrophils (%) (Auto) 72 % (31-73) Lymphocytes (%) (Auto) 13 % (24-48) Monocytes (%) (Auto) 13 % (0-9) Eosinophils (%) (Auto) 2 % (0-3) Basophils (%) (Auto) 0 % (0-3) Neutrophils # (Auto) 4.2 x10^3/uL (1.8-7.7) Lymphocytes # (Auto) 0.7 x10^3/uL (1.0-4.8) Monocytes # (Auto) 0.8 x10^3/uL (0.0-1.1) Eosinophils # (Auto) 0.1 x10^3/uL (0.0-0.7) Basophils # (Auto) 0.0 x10^3/uL (0.0-0.2) Sodium Level 142 mmol/L (136-145) Potassium Level 3.5 mmol/L (3.5-5.1) Chloride Level 109 mmol/L (98-107) Carbon Dioxide Level 24 mmol/L (21-32) Anion Gap 9 (6-14) Blood Urea Nitrogen 2 mg/dL (7-20) Creatinine 0.6 mg/dL (0.6-1.0) Estimated GFR (Cockcroft-Gault) 130.8 Glucose Level 197 mg/dL (70-99) Calcium Level 7.5 mg/dL (8.5-10.1) Test 10/29/20 16:52 10/29/20 20:53 10/30/20 04:50 10/30/20 07:49 Glucose (Fingerstick) 229 mg/dL (70-99) 167 mg/dL (70-99) 204 mg/dL (70-99) White Blood Count 4.3 x10^3/uL (4.0-11.0) Red Blood Count 3.03 x10^6/uL (3.50-5.40) Hemoglobin 7.9 g/dL (12.0-15.5) Hematocrit 23.9 % (36.0-47.0) Mean Corpuscular Volume 79 fL (79-100) Mean Corpuscular Hemoglobin 26 pg (25-35) Mean Corpuscular Hemoglobin Concent 33 g/dL (31-37) Red Cell Distribution Width 14.5 % (11.5-14.5) Platelet Count 357 x10^3/uL (140-400) Neutrophils (%) (Auto) 62 % (31-73) Lymphocytes (%) (Auto) 19 % (24-48) Monocytes (%) (Auto) 15 % (0-9) Eosinophils (%) (Auto) 4 % (0-3) Basophils (%) (Auto) 0 % (0-3) Neutrophils # (Auto) 2.7 x10^3/uL (1.8-7.7) Lymphocytes # (Auto) 0.8 x10^3/uL (1.0-4.8) Monocytes # (Auto) 0.7 x10^3/uL (0.0-1.1) Eosinophils # (Auto) 0.2 x10^3/uL (0.0-0.7) Basophils # (Auto) 0.0 x10^3/uL (0.0-0.2) Sodium Level 142 mmol/L (136-145) Potassium Level 3.4 mmol/L (3.5-5.1) Chloride Level 109 mmol/L (98-107) Carbon Dioxide Level 26 mmol/L (21-32) Anion Gap 7 (6-14) Blood Urea Nitrogen 3 mg/dL (7-20) Creatinine 0.5 mg/dL (0.6-1.0) Estimated GFR (Cockcroft-Gault) 161.4 Glucose Level 208 mg/dL (70-99) Calcium Level 7.5 mg/dL (8.5-10.1) Laboratory Tests Test 10/29/20 16:52 10/29/20 20:53 10/30/20 04:50 10/30/20 07:49 Glucose (Fingerstick) 229 mg/dL (70-99) 167 mg/dL (70-99) 204 mg/dL (70-99) White Blood Count 4.3 x10^3/uL (4.0-11.0) Red Blood Count 3.03 x10^6/uL (3.50-5.40) Hemoglobin 7.9 g/dL (12.0-15.5) Hematocrit 23.9 % (36.0-47.0) Mean Corpuscular Volume 79 fL (79-100) Mean Corpuscular Hemoglobin 26 pg (25-35) Mean Corpuscular Hemoglobin Concent 33 g/dL (31-37) Red Cell Distribution Width 14.5 % (11.5-14.5) Platelet Count 357 x10^3/uL (140-400) Neutrophils (%) (Auto) 62 % (31-73) Lymphocytes (%) (Auto) 19 % (24-48) Monocytes (%) (Auto) 15 % (0-9) Eosinophils (%) (Auto) 4 % (0-3) Basophils (%) (Auto) 0 % (0-3) Neutrophils # (Auto) 2.7 x10^3/uL (1.8-7.7) Lymphocytes # (Auto) 0.8 x10^3/uL (1.0-4.8) Monocytes # (Auto) 0.7 x10^3/uL (0.0-1.1) Eosinophils # (Auto) 0.2 x10^3/uL (0.0-0.7) Basophils # (Auto) 0.0 x10^3/uL (0.0-0.2) Sodium Level 142 mmol/L (136-145) Potassium Level 3.4 mmol/L (3.5-5.1) Chloride Level 109 mmol/L (98-107) Carbon Dioxide Level 26 mmol/L (21-32) Anion Gap 7 (6-14) Blood Urea Nitrogen 3 mg/dL (7-20) Creatinine 0.5 mg/dL (0.6-1.0) Estimated GFR (Cockcroft-Gault) 161.4 Glucose Level 208 mg/dL (70-99) Calcium Level 7.5 mg/dL (8.5-10.1) Microbiology 10/26/20 Blood Culture - Preliminary, Resulted NO GROWTH AFTER 3 DAYS Medications Current Medications Sodium Chloride 1,000 ml @ 1,000 mls/hr 1X ONCE IV Last administered on 10/21/20at 10:22; Start 10/21/20 at 09:40; Stop 10/21/20 at 10:39; Status DC Sodium Chloride 1,000 ml @ 1,000 mls/hr 1X ONCE IV Last administered on 10/21/20at 10:22; Start 10/21/20 at 09:40; Stop 10/21/20 at 10:39; Status DC Acetaminophen (Tylenol) 650 mg 1X ONCE PO Last administered on 10/21/20at 10:2 3; Start 10/21/20 at 09:45; Stop 10/21/20 at 09:46; Status DC Ringer's Solution 500 ml @ 500 mls/hr 1X ONCE IV Last administered on 10/21/20at 10:45; Start 10/21/20 at 10:45; Stop 10/21/20 at 11:44; Status DC Hydromorphone HCl (Dilaudid) 0.5 mg 1X ONCE IVP ; Start 10/21/20 at 12:00; Stop 10/21/20 at 19:02; Status DC Dextrose/Sodium Chloride 1,000 ml @ 250 mls/hr Q4H IV ; Start 10/21/20 at 12:15; Stop 10/21/20 at 12:40; Status DC Insulin Human Regular 100 unit/ Sodium Chloride 101 ml @ 0 mls/hr CONT PRN PRN IV PER PROTOCOL Last administered on 10/21/20at 13:45; Start 10/21/20 at 12:15; Stop 10/23/20 at 09:37; Status DC Potassium Chloride/Water 100 ml @ 100 mls/hr PRN Q1HR PRN IV SEE COMMENTS; Start 10/21/20 at 12:15; Stop 10/23/20 at 09:37; Status DC Potassium Chloride/Water 100 ml @ 100 mls/hr PRN Q1HR PRN IV SEE COMMENTS; Start 10/21/20 at 12:15; Stop 10/23/20 at 09:37; Status DC Potassium Chloride/Water 100 ml @ 100 mls/hr PRN Q1HR PRN IV SEE COMMENTS; Start 10/21/20 at 12:15; Stop 10/23/20 at 09:37; Status DC Iohexol (Omnipaque 300 Mg/ml) 60 ml 1X ONCE IV ; Start 10/21/20 at 12:15; Stop 10/21/20 at 12:16; Status UNV Iohexol (Omnipaque 350 Mg/ml) 90 ml 1X ONCE IV Last administered on 10/21/20at 12:50; Start 10/21/20 at 12:15; Stop 10/21/20 at 12:18; Status DC Insulin Human Regular 100 ml @ 0 mls/hr 1X ONCE IV Last administered on 10/21/20at 12:45; Start 10/21/20 at 12:45; Stop 10/21/20 at 12:46; Status DC Sodium Chloride 1,000 ml @ 250 mls/hr Q4H IV ; Start 10/21/20 at 12:45; Stop 10/21/20 at 14:38; Status DC Lorazepam (Ativan Inj) 1 mg PRN Q4HRS PRN IVP ANXIETY / AGITATION Last administered on 10/29/20at 11:52; Start 10/21/20 at 14:30 Enoxaparin Sodium (Lovenox Per Pharmacy Prophylaxis Dosing) 1 each PRN DAILY PRN MC SEE COMMENTS; Start 10/21/20 at 14:30 Enoxaparin Sodium (Lovenox 40mg Syringe) 40 mg Q24H SQ Last administered on 10/29/20at 17:07; Start 10/21/20 at 15:00 Sodium Chloride 1,000 ml @ 250 mls/hr Q4H IV Last administered on 10/21/20at 15:28; Start 10/21/20 at 14:45; Stop 10/23/20 at 09:37; Status DC Dextrose/Sodium Chloride 1,000 ml @ 250 mls/hr Q4H IV Last administered on 10/22/20at 06:31; Start 10/21/20 at 18:00; Stop 10/22/20 at 09:14; Status DC Potassium Phosphate 20 mmol/ Sodium Chloride 506.6667 ml @ 125 mls/hr 1X ONCE IV Last administered on 10/21/20at 18:02; Start 10/21/20 at 18:00; Stop 10/21/20 at 22:03; Status DC Insulin Glargine (Lantus Syringe) 12 unit QHS SQ Last administered on 10/29/20at 21:10; Start 10/21/20 at 21:00 Insulin Human Lispro (HumaLOG) 0-9 UNITS TIDWMEALS SQ Last administered on 10/30/20at 08:13; Start 10/22/20 at 08:00 Dextrose (Dextrose 50%-Water Syringe) 12.5 gm PRN Q15MIN PRN IV SEE COMMENTS; Start 10/21/20 at 19:00 Insulin Human Lispro (HumaLOG) 3 units TIDAC SQ Last administered on 10/22/20at 08:47; Start 10/22/20 at 07:30; Stop 10/22/20 at 09:13; Status DC Insulin Human Lispro (HumaLOG) 6 units TIDAC SQ Last administered on 10/30/20at 08:13; Start 10/22/20 at 11:30 Sodium Chloride 1,000 ml @ 1,000 mls/hr 1X ONCE IV Last administered on 10/22/20at 09:45; Start 10/22/20 at 09:30; Stop 10/22/20 at 10:29; Status DC Sodium Chloride 1,000 ml @ 100 mls/hr Q10H IV Last administered on 10/30/20at 06:02; Start 10/22/20 at 11:00 Ondansetron HCl (Zofran) 4 mg PRN Q6HRS PRN IVP NAUSEA/VOMITING Last administered on 10/28/20at 16:36; Start 10/22/20 at 11:00 Acetaminophen (Tylenol) 650 mg PRN Q6HRS PRN PO MILD PAIN / TEMP > 100.3'F Last administered on 10/28/20at 11:25; Start 10/22/20 at 11:00 Potassium Chloride (Klor-Con) 20 meq 1X ONCE PO Last administered on 10/22/20at 15:40; Start 10/22/20 at 14:45; Stop 10/22/20 at 14:46; Status DC Potassium Chloride (Klor-Con) 40 meq 1X ONCE PO Last administered on 10/23/20at 06:00; Start 10/23/20 at 06:00; Stop 10/23/20 at 06:01; Status DC Potassium Chloride (Klor-Con) 40 meq 1X ONCE PO Last administered on 10/23/20at 09:06; Start 10/23/20 at 10:00; Stop 10/23/20 at 10:01; Status DC Potassium Chloride/Water 100 ml @ 100 mls/hr Q1H IV Last administered on 10/23/20at 18:43; Start 10/23/20 at 10:30; Stop 10/23/20 at 12:29; Status DC Magnesium Sulfate 50 ml @ 25 mls/hr 1X ONCE IV Last administered on 10/23/20at 15:36; Start 10/23/20 at 11:00; Stop 10/23/20 at 12:59; Status DC Potassium Phosphate 13.6 mmol/Sodium Chloride 254.5333 ml @ 127.... 1X ONCE IV Last administered on 10/23/20at 23:14; Start 10/23/20 at 13:00; Stop 10/23/20 at 14:59; Status DC Ketorolac Tromethamine (Toradol 15mg Vial) 15 mg PRN Q6HRS PRN IVP INFLAMMATION Last administered on 10/28/20at 10:00; Start 10/23/20 at 10:30; Stop 10/28/20 at 10:29; Status DC Potassium Bicarbonate (Potassium Effervescent Tablet) 40 meq 1X ONCE PO Last administered on 10/23/20at 12:11; Start 10/23/20 at 10:30; Stop 10/23/20 at 10:34; Status DC Ibuprofen (Motrin) 400 mg 1X ONCE PO Last administered on 10/23/20at 21:00; Start 10/23/20 at 20:15; Stop 10/23/20 at 20:16; Status DC Levofloxacin/ Dextrose 100 ml @ 100 mls/hr 1X ONCE IV Last administered on 10/23/20at 20:27; Start 10/23/20 at 21:00; Stop 10/23/20 at 21:59; Status DC Sodium Chloride (Normal Saline Flush) 10 ml QSHIFT PRN IV AFTER MEDS AND BLOOD DRAWS; Start 10/24/20 at 07:45 Sodium Chloride (Normal Saline Flush) 10 ml PRN Q5MIN PRN IV AFTER MEDS AND BLOOD DRAWS; Start 10/24/20 at 07:45 Sodium Chloride (Normal Saline Flush) 20 ml PRN Q5MIN PRN IV AFTER MEDS AND BLOOD DRAWS; Start 10/24/20 at 07:45 Lidocaine HCl (Buffered Lidocaine 1%) 6 ml 1X ONCE INJ ; Start 10/24/20 at 09:30; Stop 10/24/20 at 09:31; Status DC Amoxicillin/ Clavulanate Potassium (Augmentin 875/ 125mg) 1 tab BID PO Last administered on 10/26/20at 09:17; Start 10/24/20 at 11:30; Stop 10/26/20 at 12:42; Status DC Lactobacillus Rhamnosus (Culturelle) 1 cap BID PO Last administered on 10/30/20at 08:06; Start 10/24/20 at 21:00 Potassium Chloride (Klor-Con) 40 meq 1X ONCE PO Last administered on 10/25/20at 07:03; Start 10/25/20 at 06:45; Stop 10/25/20 at 06:50; Status DC Potassium Bicarbonate (Potassium Effervescent Tablet) 40 meq 1X ONCE PO Last administered on 10/25/20at 11:58; Start 10/25/20 at 12:00; Stop 10/25/20 at 12:01; Status DC Potassium Chloride (Klor-Con) 40 meq 1X ONCE PO Last administered on 10/25/20at 12:00; Start 10/25/20 at 12:00; Stop 10/25/20 at 12:10; Status DC Potassium Chloride/Water 100 ml @ 100 mls/hr Q1H IV Last administered on 10/25/20at 20:32; Start 10/25/20 at 15:30; Stop 10/25/20 at 19:29; Status DC Potassium Bicarbonate (Potassium Effervescent Tablet) 40 meq 1X ONCE PO Last administered on 10/26/20at 09:17; Start 10/26/20 at 08:30; Stop 10/26/20 at 08:31; Status DC Loperamide HCl (Imodium) 2 mg PRN Q15MIN PRN PO DIARRHEA Last administered on 10/27/20at 04:24; Start 10/26/20 at 09:15; Stop 10/27/20 at 13:20; Status DC Vancomycin HCl (Vanco Per Pharmacy) 1 each PRN DAILY PRN MC SEE COMMENTS; Start 10/26/20 at 12:45; Stop 10/26/20 at 13:53; Status DC Piperacillin Sod/ Tazobactam Sod (Zosyn Per Pharmacy) 1 each PRN DAILY PRN MC SEE COMMENTS; Start 10/26/20 at 12:45 Piperacillin Sod/ Tazobactam Sod 3.375 gm/Sodium Chloride 50 ml @ 100 mls/hr Q6HRS IV Last administered on 10/30/20at 06:02; Start 10/26/20 at 18:00 Vancomycin HCl 1.5 gm/Sodium Chloride 500 ml @ 250 mls/hr 1X ONCE IV ; Start 10/26/20 at 14:00; Stop 10/26/20 at 15:59; Status Cancel Pantoprazole Sodium (Protonix) 40 mg DAILYAC PO Last administered on 10/27/20at 07:51; Start 10/27/20 at 07:30; Stop 10/27/20 at 08:54; Status DC Fluconazole/ Sodium Chloride 200 ml @ 100 mls/hr Q24H IV Last administered on 10/28/20at 13:33; Start 10/26/20 at 14:00; Stop 10/29/20 at 11:58; Status DC Daptomycin 390 mg/ Sodium Chloride 50 ml @ 100 mls/hr Q24H IV Last administered on 10/26/20at 16:54; Start 10/26/20 at 15:00; Stop 10/27/20 at 13:22; Status DC Metronidazole 100 ml @ 100 mls/hr Q8HRS IV Last administered on 10/28/20at 06:23; Start 10/26/20 at 14:00; Stop 10/28/20 at 13:29; Status DC Potassium Chloride (Klor-Con) 40 meq 1X ONCE PO Last administered on 10/27/20at 07:54; Start 10/27/20 at 07:15; Stop 10/27/20 at 07:16; Status DC Pantoprazole Sodium (PROTONIX VIAL for IV PUSH) 40 mg DAILYAC IVP Last administered on 10/30/20at 08:07; Start 10/28/20 at 07:30 Iohexol (Omnipaque 300 Mg/ml) 75 ml 1X ONCE IV Last administered on 10/27/20at 09:29; Start 10/27/20 at 09:15; Stop 10/27/20 at 09:16; Status DC Info (CONTRAST GIVEN -- Rx MONITORING) 1 each PRN DAILY PRN MC SEE COMMENTS; Start 10/27/20 at 09:15; Stop 10/29/20 at 09:14; Status DC Vancomycin HCl (Vancomycin Oral Solution) 125 mg [id number] PO Last administered on 10/30/20at 08:06; Start 10/27/20 at 17:00 Potassium Chloride/Water 100 ml @ 100 mls/hr Q1H IV Last administered on 10/28/20at 12:11; Start 10/28/20 at 07:30; Stop 10/28/20 at 12:29; Status DC Potassium Chloride (Klor-Con) 20 meq TIDWMEALS PO Last administered on 10/30/20at 08:06; Start 10/28/20 at 08:00 Ketorolac Tromethamine (Toradol 15mg Vial) 15 mg PRN Q6HRS PRN IVP INFLAMMATION Last administered on 10/29/20at 23:36; Start 10/28/20 at 15:00; Stop 11/02/20 at 14:59 Active Scripts Active Ondansetron Odt (Ondansetron) 4 Mg Tab.rapdis 1 Tab PO PRN Q6-8HRS Pepcid (Famotidine) 20 Mg Tablet 20 Mg PO BID Carafate (Sucralfate) 1 Gm/10 Ml Oral.susp 10 Ml PO QID 30 Days before food Cyclobenzaprine Hcl 10 Mg Tablet 1 Tab PO TID Naproxen 500 Mg Tablet 1 Tab PO BID Vitals/I & O Vital Sign - Last 24 Hours 10/29/20 10/29/20 10/29/20 10/29/20 15:00 20:00 20:00 23:00 Temp 98.4 100.4 99.8 98.4 100.4 99.8 Pulse 106 119 111 Resp 16 16 16 B/P (MAP) 102/60 (74) 98/56 (70) 114/70 (85) Pulse Ox 96 96 94 O2 Delivery Room Air Room Air Room Air Room Air 10/30/20 10/30/20 10/30/20 03:32 08:00 08:00 Temp 98.0 97.9 98.0 97.9 Pulse 92 93 Resp 16 16 B/P (MAP) 106/55 (72) 130/83 (99) Pulse Ox 92 100 O2 Delivery Room Air Room Air Room Air Intake and Output0 10/29/20 10/29/20 10/30/20 15:00 23:00 07:00 Intake Total 600 ml 200 ml Balance 600 ml 200 ml Justicifation of Admission Dx: Justifications for Admission: Justification of Admission Dx: Yes TARSHA WILKERSON MD October 30, 2020 11:21
[2020-10-30] MEDS ORDERED: POTASSIUM CHLORIDE 20 MEQ TABLET.ER. PO ONE (12:30)
--- NOTE | 2020-10-30 13:31 | NUR ---
Patient is using bed valentin for bowel movements and urination. Patient is calling out when she feels the urge.
--- NOTE | 2020-10-30 14:44 | PDOC ---
GI PROGRESS NOTES Date of Service: Date/Time DATE: 10/30/20 TIME: 14:42 Subjective Subjective Lately less diarrhea but continues to have diarrhea over the weekend. Generally weak but again feels like she is slightly better. Seems to be tolerating diet. Objective Vitals Vital Signs Date Time Temp Pulse Resp B/P (MAP) Pulse Ox O2 Delivery O2 Flow Rate FiO2 10/30/20 11:00 98.2 94 18 124/68 (86) 99 Room Air 98.2 10/30/20 08:00 Room Air 10/30/20 08:00 97.9 93 16 130/83 (99) 100 Room Air 97.9 10/30/20 03:32 98.0 92 16 106/55 (72) 92 Room Air 98.0 10/29/20 23:00 99.8 111 16 114/70 (85) 94 Room Air 99.8 10/29/20 20:00 Room Air 10/29/20 20:00 100.4 119 16 98/56 (70) 96 Room Air 100.4 10/29/20 15:00 98.4 106 16 102/60 (74) 96 Room Air 98.4 Labs Labs Laboratory Tests Test 10/29/20 16:52 10/29/20 20:53 10/30/20 04:50 10/30/20 07:49 Glucose (Fingerstick) 229 mg/dL (70-99) 167 mg/dL (70-99) 204 mg/dL (70-99) White Blood Count 4.3 x10^3/uL (4.0-11.0) Red Blood Count 3.03 x10^6/uL (3.50-5.40) Hemoglobin 7.9 g/dL (12.0-15.5) Hematocrit 23.9 % (36.0-47.0) Mean Corpuscular Volume 79 fL (79-100) Mean Corpuscular Hemoglobin 26 pg (25-35) Mean Corpuscular Hemoglobin Concent 33 g/dL (31-37) Red Cell Distribution Width 14.5 % (11.5-14.5) Platelet Count 357 x10^3/uL (140-400) Neutrophils (%) (Auto) 62 % (31-73) Lymphocytes (%) (Auto) 19 % (24-48) Monocytes (%) (Auto) 15 % (0-9) Eosinophils (%) (Auto) 4 % (0-3) Basophils (%) (Auto) 0 % (0-3) Neutrophils # (Auto) 2.7 x10^3/uL (1.8-7.7) Lymphocytes # (Auto) 0.8 x10^3/uL (1.0-4.8) Monocytes # (Auto) 0.7 x10^3/uL (0.0-1.1) Eosinophils # (Auto) 0.2 x10^3/uL (0.0-0.7) Basophils # (Auto) 0.0 x10^3/uL (0.0-0.2) Sodium Level 142 mmol/L (136-145) Potassium Level 3.4 mmol/L (3.5-5.1) Chloride Level 109 mmol/L (98-107) Carbon Dioxide Level 26 mmol/L (21-32) Anion Gap 7 (6-14) Blood Urea Nitrogen 3 mg/dL (7-20) Creatinine 0.5 mg/dL (0.6-1.0) Estimated GFR (Cockcroft-Gault) 161.4 Glucose Level 208 mg/dL (70-99) Calcium Level 7.5 mg/dL (8.5-10.1) Test 10/30/20 11:22 Glucose (Fingerstick) 154 mg/dL (70-99) Physical Exam Physical Exam Alert Chest clear Abdomen soft Assessment Assessment Acute onset diarrhea with colitis as determined by CT scan. Phil Campbell to be post antibiotic exposure but C. difficile and other cultures were negative. She is empirically been on vancomycin while taking other antibiotics. Also has recently been on steroids and presented originally in this hospitalization with new onset diabetes with DKA. Because of the persistent nature of her symptoms a flexible sigmoidoscopy was planned for Saturday but because she was feeling better and had eaten it was canceled. Because of the persistent nature of her symptoms over the weekend she agreed to proceed with flexible sigmoidoscopy tomorrow Plan Plan We will plan on flexible sigmoidoscopy with biopsies tomorrow with Dr. Lindsay. Justicifation of Admission Dx: Justifications for Admission: Justification of Admission Dx: Yes AMARIS CAICEDO MD October 30, 2020 14:44
[2020-10-30 15:00] VITALS: BP 122/66
[2020-10-30] MEDS: ENOXAPARIN 40 MG/0.4 ML SYRINGE. SQ SCH ×2 (15:00→17:49)
[2020-10-30] MEDS: KETOROLAC 15 MG/ML VIAL. IVP PRN (15:23)
[2020-10-30 20:00] VITALS: BP 112/72
[2020-10-30] MEDS: INSULIN GLARGINE SYRINGE. SQ SCH (20:30)
[2020-10-30 23:00] VITALS: BP 110/67
[2020-10-30] MEDS: ACETAMINOPHEN 325 MG TABLET. PO PRN (23:31)
[2020-10-31 03:00] VITALS: BP 111/71
[2020-10-31] MEDS: IV NORMAL SALINE 1000ML BAG 1,000 ML IV SCH (03:00)
[2020-10-31] MEDS: PIPERACILLIN/TAZOBACTAM 3.375 GM in IV NORMAL SALINE 50ML 50 ML IV SCH (05:51)
[2020-10-31] MEDS: PANTOPRAZOLE IV PUSH 40 MG VIAL. IVP SCH (05:51)
[2020-10-31] MEDS ORDERED: MAGNESIUM CITRATE 296 ML SOLUTION. PO ONE (06:00)
[2020-10-31 06:17] LABS: CALCIUM 7.8 mg/dL (8.5-10.1); CREATININE 0.5 mg/dL (0.6-1.0); GFR 161.4; POTASSIUM 3.3 mmol/L (3.5-5.1)
[2020-10-31 06:20] LABS: BASO % 1 % (0-3); EOS # 0.1 x10^3/uL (0.0-0.7); EOS % 3 % (0-3); HEMATOCRIT 25.7 % (36.0-47.0); HEMOGLOBIN 8.2 g/dL (12.0-15.5); LYMPH # 0.9 x10^3/uL (1.0-4.8); LYMPH % 18 % (24-48); MEAN CORPUSCULAR HEMOGLOBIN 25 pg (25-35); MEAN CORPUSCULAR HGB CONC 32 g/dL (31-37); MEAN CORPUSCULAR VOLUME 79 fL (79-100); MONO # 0.5 x10^3/uL (0.0-1.1); MONO % 10 % (0-9); NEUT # 3.5 x10^3/uL (1.8-7.7); NEUT % 69 % (31-73); PLATELET COUNT 414 x10^3/uL (140-400); RED BLOOD COUNT 3.26 x10^6/uL (3.50-5.40); RED CELL DISTRIBUTION WIDTH 14.5 % (11.5-14.5); WHITE BLOOD COUNT 5.1 x10^3/uL (4.0-11.0)
[2020-10-31] MEDS: INSULIN LISPRO 300 UNITS/3 ML VIAL. SQ SCH ×6 (07:30→17:00)
[2020-10-31 07:46] VITALS: BP 115/71
[2020-10-31] MEDS ORDERED: POTASSIUM CHLORIDE 20 MEQ TABLET.ER. PO SCH (08:00)
[2020-10-31] MEDS: POTASSIUM CHLORIDE 20 MEQ TABLET.ER. PO SCH ×3 (08:00→17:05)
[2020-10-31] MEDS: LACTOBACILLUS RHAMNOSUS GG 1 CAPSULE. PO SCH ×2 (09:00→20:58)
[2020-10-31] MEDS: VANCOMYCIN 125 MG/2.5 ML ORAL SOLUTION. PO SCH (09:00)
--- NOTE | 2020-10-31 10:01 | NUR ---
SW following. Discussed with RN, pt from home, room air, NPO, IV abx. Pt having a procedure today. RN advised no SW needs at this time. SW will continue to follow.
--- NOTE | 2020-10-31 10:50 | PDOC ---
Infectious Disease Note Subjective: Subjective Patient had fever last night T-max 102 Awaiting sigmoidoscopy by GI later this afternoon Patient is unable to cooperate prep as she has nausea and been throwing up Diarrhea is slowing down,no blood in stool Ambulating without difficulty Appetite improved though slowly No dental pain, sore throat , shortness of breath, symptoms, abnormal vaginal discharge or skin rash Vital Signs: Vital Signs Vital Signs Date Time Temp Pulse Resp B/P (MAP) Pulse Ox O2 Delivery O2 Flow Rate FiO2 10/31/20 08:00 Room Air 10/31/20 07:46 98.2 98 18 115/71 (86) 96 98.2 Physical Exam: PHYSICAL EXAM GENERAL: Propped up in bed, alert, nontoxic appearing HEENT: Anicteric. Oropharynx,tongue piercing, otherwise oral cavity is clear. NECK: Supple. Good range of motion. No gross fullness. LUNGS: Clear to auscultation bilaterally. HEART: S1, S2. ABDOMEN: Less distended with positive bowel sounds. Soft. tender EXTREMITIES: Without clubbing or cyanosis. No gross edema. SKIN: Warm to touch without generalized signs of rash. Multiple tattoos. NEUROLOGIC: Alert, nonfocal, PSYCHIATRIC: flat RUE-PICC (10/26) clean Medications: Inpatient Meds: Medications reviewed. Labs: Lab Laboratory Tests Test 10/30/20 11:22 10/30/20 17:14 10/30/20 20:01 10/31/20 05:55 Glucose (Fingerstick) 154 mg/dL (70-99) 152 mg/dL (70-99) 100 mg/dL (70-99) White Blood Count 5.1 x10^3/uL (4.0-11.0) Red Blood Count 3.26 x10^6/uL (3.50-5.40) Hemoglobin 8.2 g/dL (12.0-15.5) Hematocrit 25.7 % (36.0-47.0) Mean Corpuscular Volume 79 fL (79-100) Mean Corpuscular Hemoglobin 25 pg (25-35) Mean Corpuscular Hemoglobin Concent 32 g/dL (31-37) Red Cell Distribution Width 14.5 % (11.5-14.5) Platelet Count 414 x10^3/uL (140-400) Neutrophils (%) (Auto) 69 % (31-73) Lymphocytes (%) (Auto) 18 % (24-48) Monocytes (%) (Auto) 10 % (0-9) Eosinophils (%) (Auto) 3 % (0-3) Basophils (%) (Auto) 1 % (0-3) Neutrophils # (Auto) 3.5 x10^3/uL (1.8-7.7) Lymphocytes # (Auto) 0.9 x10^3/uL (1.0-4.8) Monocytes # (Auto) 0.5 x10^3/uL (0.0-1.1) Eosinophils # (Auto) 0.1 x10^3/uL (0.0-0.7) Basophils # (Auto) 0.0 x10^3/uL (0.0-0.2) Sodium Level 141 mmol/L (136-145) Potassium Level 3.3 mmol/L (3.5-5.1) Chloride Level 108 mmol/L (98-107) Carbon Dioxide Level 24 mmol/L (21-32) Anion Gap 9 (6-14) Blood Urea Nitrogen 2 mg/dL (7-20) Creatinine 0.5 mg/dL (0.6-1.0) Estimated GFR (Cockcroft-Gault) 161.4 Glucose Level 147 mg/dL (70-99) Calcium Level 7.8 mg/dL (8.5-10.1) Objective: Assessment: Fever blood cultures negative so far Diarrhea with repeat CT showing changes of colitis c-diff neg and stool studies neg DKA PCN allergy - hives and throat swelling but tolerates Amoxicillin Heart murmur Recent dental cleaning with pre Amox Just finished steroids Right adnexal cyst, 3 of uterine fibroids status post removal couple of years ago Plan: Plan of Care Blood cultures remain negative so far Diarrhea has slowed some. Frustrated as she cannot tolerate oral prep D/c Fluconazole 10/29 Awaiting sigmoidoscopy later today DC Zosyn change to merrem cont po vancomycin crypto and giardia ag Probiotics Maintain hydration Maintain aspiration precautions Monitor labs/temp PICC management per primary Discussed with mother at bedside AYLA LAFLEUR MD October 31, 2020 10:50
[2020-10-31] MEDS: POTASSIUM CL 40MEQ D5-0.45NACL 1,000 ML IV SCH (11:26)
--- NOTE | 2020-10-31 11:28 | PDOC ---
[employer] PROGRESS NOTE Date of Service DOS: DATE: 10/31/20 TIME: 10:43 Chief Complaint Chief Complaint Nausea, vomiting, fever, and weakness. Found to be in DKA (blood sugar 900). Fever of unknown origin Pancolitis Pending repeat C. difficile History of Present Illness History of Present Illness Ms Zamarripa is 45yo F w/ PMHx anemia, uterine fibroids who presented to the ED via EMS from home due to progressive weakness with 8-10 episodes of diarrhea and emesis. She was unable to lift her arms or legs. She had a headache 710 as well as some nominal pain 7 out of 10. She had just recently finished treatment with amoxicillin and Medrol for dental caries last week. Very tearful she has no history that she knows of high blood sugar or diabetes. She follows at [facility]. Initially admitted to the ICU on DKA protocol with glucose over 900. Febrile 102.1 F. Glucose in 200s K 3.3. Still with abdominal pain today. D/w father bedside. Replace phos, mag, K. C diff negative. 10/30: emesis x 1 5-06 pm Status post rapid response 10-26 because of fever tachycardia and abdominal pain. Patient continues to have low-grade fevers. She does continue to complain of diffuse abdominal pain and diarrhea. We do recommend her to place a rectal tube and GI is okay with that. Pending CT abdomen pelvis per ID and continue with empiric IV antibiotics. does not have history of recent travel, hiking, camping or working outside. She works at home mainly does not have any pets and works for the [employer] for [employer] services. Patient's chart, labs, images were reviewed and discussed with RN D/c Fluconazole 10/29 Await further GI f/u ? scope CONTINUE Zosyn, po vancomycin Probiotics d/w rn 10/29/2020 emesis x 1 5-06 pm Status post rapid response 05 because of fever tachycardia and abdominal pain. Patient continues to have low-grade fevers. She does continue to complain of diffuse abdominal pain and diarrhea. We do recommend her to place a rectal tube and GI is okay with that. Pending CT abdomen pelvis per ID and continue with empiric IV antibiotics. does not have history of recent travel, hiking, camping or working outside. She works at home mainly does not have any pets and works for the [employer] for [employer] services. Patient's chart, labs, images were reviewed and discussed with RN Flex sig may be needed if no improvement with oral vanco for C diff to assess for new onset Crohns/Ulcerative colitis with complications-megacolon development. 10/28/2020 emesis x 1 last night Status post rapid response 5-05 because of fever tachycardia and abdominal pain. Patient continues to have low-grade fevers. She does continue to complain of diffuse abdominal pain and diarrhea. We do recommend her to place a rectal tube and GI is okay with that. Pending CT abdomen pelvis per ID and continue with empiric IV antibiotics. Upon further questioning, patient does not have history of recent travel, hiking, camping or working outside. She works at home mainly does not have any pets and works for the [employer] for [employer] services. Patient's chart, labs, images were reviewed and discussed with RN 10/27/2020 No acute events overnight. Status post rapid response last night because of fever tachycardia and abdominal pain. Patient continues to have low-grade fevers. She does continue to complain of diffuse abdominal pain and diarrhea. We do recommend her to place a rectal tube and GI is okay with that. Pending CT abdomen pelvis per ID and continue with empiric IV antibiotics. Upon further questioning, patient does not have history of recent travel, hiking, camping or working outside. She works at home mainly does not have any pets and works for the [employer] for [employer] services. Patient's chart, labs, images were reviewed and discussed with RN 10/26/2020: Pt. was seen and examined at bedside. Discussed case with RN. Discussed case with case management associate. The chart was reviewed. She has no new concerns or complaints. The pt.'s mood appeared to be improved from yesterday. She was resting comfortably when we saw her. She states her diarrhea has not improved since she was admitted. She is negative for C. diff. 10/25/2020: Pt. was seen and examined at bedside. Discussed case with RN. Discussed case with case management associate. The chart was reviewed. There was a code blue call last night, however, the pt. was found to be stable. This morning she was tired, weak, and tachycardic (HR: 119). She has no new concerns or complaints. The pt.'s mood appeared to be improved from yesterday. 10/22: Up and trying to eat, some anxiety and very emotional still. Went up on meal dose insulin. Transfer out of ICU. Bolus additional 1 liter NS Vitals/I&O Vitals/I&O: Vital Signs Date Time Temp Pulse Resp B/P (MAP) Pulse Ox O2 Delivery O2 Flow Rate FiO2 10/31/20 08:00 Room Air 10/31/20 07:46 98.2 98 18 115/71 (86) 96 98.2 I & O 10/30/20 10/30/20 10/31/20 15:00 23:00 07:00 Intake Total 270 ml 900 ml Output Total 2 ml Balance 268 ml 900 ml Physical Exam Physical Exam: GENERAL: Propped up in bed, alert, looks some better HEENT: Anicteric. Oropharynx,tongue piercing, otherwise oral cavity is clear. NECK: Supple. Good range of motion. No gross fullness. LUNGS: Clear to auscultation bilaterally. HEART: S1, S2. ABDOMEN: Less distended with positive bowel sounds. Soft. tender EXTREMITIES: Without clubbing or cyanosis. No gross edema. SKIN: Warm to touch without generalized signs of rash. Multiple tattoos. NEUROLOGIC: Alert, nonfocal, PSYCHIATRIC: flat RUE-PICC (10/26) clean General: Alert, Oriented X3, Cooperative, No acute distress, mild distress, Other (General affect was improved from yesetday) Heart: Regular rate Abdomen: No tenderness Extremities: No clubbing, No cyanosis, No edema, Normal pulses Skin: No rashes, No breakdown Labs Labs: Laboratory Tests Test 10/30/20 11:22 10/30/20 17:14 10/30/20 20:01 10/31/20 05:55 Glucose (Fingerstick) 154 mg/dL (70-99) 152 mg/dL (70-99) 100 mg/dL (70-99) White Blood Count 5.1 x10^3/uL (4.0-11.0) Red Blood Count 3.26 x10^6/uL (3.50-5.40) Hemoglobin 8.2 g/dL (12.0-15.5) Hematocrit 25.7 % (36.0-47.0) Mean Corpuscular Volume 79 fL (79-100) Mean Corpuscular Hemoglobin 25 pg (25-35) Mean Corpuscular Hemoglobin Concent 32 g/dL (31-37) Red Cell Distribution Width 14.5 % (11.5-14.5) Platelet Count 414 x10^3/uL (140-400) Neutrophils (%) (Auto) 69 % (31-73) Lymphocytes (%) (Auto) 18 % (24-48) Monocytes (%) (Auto) 10 % (0-9) Eosinophils (%) (Auto) 3 % (0-3) Basophils (%) (Auto) 1 % (0-3) Neutrophils # (Auto) 3.5 x10^3/uL (1.8-7.7) Lymphocytes # (Auto) 0.9 x10^3/uL (1.0-4.8) Monocytes # (Auto) 0.5 x10^3/uL (0.0-1.1) Eosinophils # (Auto) 0.1 x10^3/uL (0.0-0.7) Basophils # (Auto) 0.0 x10^3/uL (0.0-0.2) Sodium Level 141 mmol/L (136-145) Potassium Level 3.3 mmol/L (3.5-5.1) Chloride Level 108 mmol/L (98-107) Carbon Dioxide Level 24 mmol/L (21-32) Anion Gap 9 (6-14) Blood Urea Nitrogen 2 mg/dL (7-20) Creatinine 0.5 mg/dL (0.6-1.0) Estimated GFR (Cockcroft-Gault) 161.4 Glucose Level 147 mg/dL (70-99) Calcium Level 7.8 mg/dL (8.5-10.1) Assessment and Plan Assessmemt and Plan Problems Medical Problems: (1) DKA (diabetic ketoacidoses) Status: Acute (2) Pancreatitis Status: Acute (3) Sepsis Status: Acute Comment Review of Relevant I have reviewed the following items allyssa (where applicable) has been applied. Medications: Current Medications Medications (Trade) Dose Ordered Sig/Bhupinder Route PRN Reason Start Time Stop Time Status Last Admin Dose Admin Potassium Chloride (Klor-Con) 40 meq 1X ONCE PO 10/30/20 12:30 10/30/20 12:31 DC 10/30/20 12:08 Magnesium Citrate (Citroma) 296 ml 1X ONCE PO 10/31/20 06:00 10/31/20 06:01 DC 10/31/20 05:50 Justifications for Admission Other Justification NORMA WOODY MD October 31, 2020 11:28
[2020-10-31 11:33] VITALS: BP 121/78
[2020-10-31] MEDS ORDERED: PROPOFOL 10 MG/ML (20ML) VIAL. IV ONE (12:27)
--- NOTE | 2020-10-31 13:33 | RAD ---
Study: CT maxillofacial without contrast INDICATION: Fever. Recent dental cleaning. COMPARISON: None. TECHNIQUE: Axial CT imaging of the maxillofacial structures performed without the use of intravenous contrast. Coronal and sagittal reformats were obtained. One or more of the following individualized dose reduction techniques were utilized for this examinat ion: 1. Automated exposure control 2. Adjustment of the mA and/or kV according to patient size 3. Use of iterative reconstruction technique. FINDINGS: No subperiosteal abscess is identified noting streak artifact from dental amalgam/dental hardware. No overt inflammatory changes of the more superficial soft tissues to suggest facial cellulitis. No per iapical lucency or region of alveolar dehiscence. Unerupted right maxillary premolar. Several missing teeth. Unremarkable globes and retrobulbar soft tissues. The deep spaces of the neck are within normal limit s. Unremarkable tonsillar pillars, uvula and epiglottis. No retropharyngeal/prevertebral edema. No en larged lymph nodes. No fluid within the paranasal sinuses. Normally aerated mastoid air cells and middle ears. Normally aligned temporomandibular joints. Mild early degenerative changes across the C5-C6 disc spac e. IMPRESSION: Noting streak artifact from dental amalgam/hardware, no subperiosteal abscess is identified or convin cing evidence for facial cellulitis. Collectively no abnormality is seen throughout the patient's fac e that would explain the patient's fever. Electronically signed by: YOSELYN MOJICA MD (10/31/2020 1:31 PM) [id number]
--- NOTE | 2020-10-31 13:47 | PDOC4 ---
PROCEDURE Procedure Flex sig/biopsies Indication: colitis on imaging/negative stool studies Meds: per anesthesia Findings: JEANIE--no palpable lesions --'Scope advanced to ~mid-descending colon. Continuous inflammation with erythema, friability, serpiginous ulcerations c/w severe UC. No "pseudo- membrane". Extends above extent of exam. Rectal biopsies taken. Vikram. well. IMP: Late-onset TO, severe. REC: IV steroids; will aggravate diabetes, but no other rapid-acting treatment. PO mesalamine. Would not go above full liquid diet at present. ROSARIO ROSS MD October 31, 2020 13:47
[2020-10-31] MEDS: MEROPENEM 500 MG in IV NORMAL SALINE 50ML 50 ML IV SCH ×2 (14:38→18:18)
[2020-10-31] MEDS: MESALAMINE 400 MG CAP.DRTAB. PO SCH ×2 (14:38→20:58)
[2020-10-31] MEDS ORDERED: ALTEPLASE 1MG SYRINGE. INT CAT ONE (15:15)
[2020-10-31 15:20] VITALS: BP 125/83
[2020-10-31 19:00] VITALS: BP 108/108
[2020-10-31] MEDS: methylPREDNISolone SOD SUCC PF 40 MG/ML VIAL. IV SCH (20:59)
[2020-10-31] MEDS: INSULIN GLARGINE SYRINGE. SQ SCH (21:10)
[2020-10-31] MEDS: KETOROLAC 15 MG/ML VIAL. IVP PRN (21:10)
[2020-10-31 23:18] VITALS: BP 108/62
[2020-11-01] MEDS: MEROPENEM 500 MG in IV NORMAL SALINE 50ML 50 ML IV SCH ×2 (00:03→06:07)
[2020-11-01 03:50] VITALS: BP 113/67
[2020-11-01] MEDS ORDERED: ALTEPLASE 1MG SYRINGE. INT CAT ONE (06:00)
[2020-11-01] MEDS: POTASSIUM CL 40MEQ D5-0.45NACL 1,000 ML IV SCH (06:06)
[2020-11-01] MEDS: PANTOPRAZOLE IV PUSH 40 MG VIAL. IVP SCH (06:06)
[2020-11-01 07:00] VITALS: BP 110/44
[2020-11-01] MEDS: LACTOBACILLUS RHAMNOSUS GG 1 CAPSULE. PO SCH ×2 (08:54→21:35)
[2020-11-01] MEDS: POTASSIUM CHLORIDE 20 MEQ TABLET.ER. PO SCH ×3 (08:55→17:00)
[2020-11-01] MEDS: MESALAMINE 400 MG CAP.DRTAB. PO SCH ×3 (08:55→21:35)
[2020-11-01] MEDS: INSULIN LISPRO 300 UNITS/3 ML VIAL. SQ SCH ×6 (09:02→18:29)
[2020-11-01] MEDS: methylPREDNISolone SOD SUCC PF 40 MG/ML VIAL. IV SCH ×2 (09:03→21:35)
--- NOTE | 2020-11-01 09:43 | PDOC ---
Infectious Disease Note Subjective: Subjective Pt has diarrhea but improving Underwent sigmoidoscopy and biopsies by GI later this afternoon Ambulating without difficulty Appetite improved No dental pain, sore throat , shortness of breath, symptoms, abnormal vaginal discharge or skin rash Vital Signs: Vital Signs Vital Signs Date Time Temp Pulse Resp B/P (MAP) Pulse Ox O2 Delivery O2 Flow Rate FiO2 11/01/20 07:00 98.4 97 18 110/44 (66) 98 Room Air 98.4 Physical Exam: PHYSICAL EXAM GENERAL: Propped up in bed, alert, nontoxic appearing,looks better HEENT: Anicteric. Oropharynx,tongue piercing, Otherwise oral cavity is clear. NECK: Supple. Good range of motion. No gross fullness. LUNGS: Clear to auscultation bilaterally. HEART: S1, S2. ABDOMEN: Less distended with positive bowel sounds. Soft. mildly tender, no rebound EXTREMITIES: Without clubbing or cyanosis. No gross edema. SKIN: Warm to touch without generalized signs of rash. Multiple tattoos. NEUROLOGIC: Alert, nonfocal, PSYCHIATRIC: flat RUE-PICC (10/26) clean Medications: Inpatient Meds: Medications reviewed. Labs: Lab Laboratory Tests Test 10/31/20 11:30 10/31/20 16:19 10/31/20 20:44 11/01/20 07:31 Glucose (Fingerstick) 139 mg/dL (70-99) 165 mg/dL (70-99) 128 mg/dL (70-99) 307 mg/dL (70-99) Objective: Assessment: Fever blood cultures negative so far,pattern improved Diarrhea with repeat CT showing changes of colitis c-diff neg and stool studies neg, UC on sigmoidoscopy, on steroids DKA PCN allergy - hives and throat swelling but tolerates Amoxicillin Heart murmur Recent dental cleaning with pre Amox, ct maxillofacial neg for acute changes Just finished steroids Right adnexal cyst, 3 of uterine fibroids status post removal couple of years ago Plan: Plan of Care Blood cultures remain negative so far DC merrem and po vancomycin F/U stool crypto and giardia ag Probiotics Maintain hydration Maintain aspiration precautions Monitor labs/temp PICC management per primary Discussed with mother at bedside AYLA LAFLEUR MD November 01, 2020 09:43
--- NOTE | 2020-11-01 09:50 | PDOC ---
[employer] PROGRESS NOTE Date of Service DOS: DATE: 11/01/20 TIME: 09:45 Chief Complaint Chief Complaint A/P: Nausea, vomiting, fever, and weakness. Found to be in DKA (blood sugar 900). Fever of unknown origin Pancolitis - ulcerative colitis by sigmoidoscopy 10/31/2020 Pending repeat C. difficile Anxiety disorder - ativan PRN Anemia - Dehydration - Newly diagnosed diabetes - A1c 13.7 Hypokalemia Hypomagnesemia History of Present Illness History of Present Illness Ms Zamarripa is 45yo F w/ PMHx anemia, uterine fibroids who presented to the ED via EMS from home due to progressive weakness with 8-10 episodes of diarrhea and emesis. She was unable to lift her arms or legs. She had a headache 710 as well as some nominal pain 7 out of 10. She had just recently finished treatment with amoxicillin and Medrol for dental caries last week. Very tearful she has no history that she knows of high blood sugar or diabetes. [facility] to the [facility] on DKA protocol with glucose over 900. 10/22: Up and trying to eat, some anxiety and very emotional still. Went up on meal dose insulin. Transfer out of ICU. Bolus additional 1 liter NS 10/25: Code blue call last night, found to be stable. This morning she was tired, weak, and tachycardic (HR: 119). She has no new concerns or complaints. 10/26: Rapid response with tachycardia and abdominal pain 10/27: Emesis overnight 10/30: emesis x 1 5-06 pm Status post rapid response 10-26 because of fever tachycardia and abdominal pain. Patient continues to have low-grade fevers. She does continue to complain of diffuse abdominal pain and diarrhea. We do recommend her to place a rectal tube and GI is okay with that. Pending CT abdomen pelvis per ID and continue with empiric IV antibiotics. does not have history of recent travel, hiking, camping or working outside. She works at home mainly does not have any pets and works for the [employer] for [employer] services. Patient's chart, labs, images were reviewed and discussed with RN D/c Fluconazole 10/29 Await further GI f/u ? scope CONTINUE Zosyn, po vancomycin Probiotics d/w rn 10/31: Febrile 102.1 F. Glucose in 200s K 3.3. Still with abdominal pain today. D/w father bedside. Replace phos, mag, K. C diff negative. Sigmoidoscopy consistent with ulcerative colitis Afebrile. Glucose in 200s 300s. Abdominal pain a little better still with diarrhea. Labs improved. Vitals/I&O Vitals/I&O: Vital Signs Date Time Temp Pulse Resp B/P (MAP) Pulse Ox O2 Delivery O2 Flow Rate FiO2 11/01/20 07:00 98.4 97 18 110/44 (66) 98 Room Air 98.4 I & O 10/31/20 10/31/20 11/01/20 15:00 23:00 07:00 Intake Total 200 ml Balance 200 ml Physical Exam Physical Exam: GENERAL: Propped up in bed, alert, nontoxic appearing HEENT: Anicteric. Oropharynx,tongue piercing, otherwise oral cavity is clear. NECK: Supple. Good range of motion. No gross fullness. LUNGS: Clear to auscultation bilaterally. HEART: S1, S2. ABDOMEN: Less distended with positive bowel sounds. Soft. tender EXTREMITIES: Without clubbing or cyanosis. No gross edema. SKIN: Warm to touch without generalized signs of rash. Multiple tattoos. NEUROLOGIC: Alert, nonfocal, PSYCHIATRIC: flat RUE-PICC (10/26) clean General: Alert, Oriented X3, Cooperative, No acute distress, mild distress, Other (General affect was improved from yesetday) Heart: Regular rate Abdomen: No tenderness Extremities: No clubbing, No cyanosis, No edema, Normal pulses Skin: No rashes, No breakdown Labs Labs: Laboratory Tests Test 10/31/20 11:30 10/31/20 16:19 10/31/20 20:44 11/01/20 07:31 Glucose (Fingerstick) 139 mg/dL (70-99) 165 mg/dL (70-99) 128 mg/dL (70-99) 307 mg/dL (70-99) Assessment and Plan Assessmemt and Plan Problems Medical Problems: (1) DKA (diabetic ketoacidoses) Status: Acute (2) Pancreatitis Status: Acute (3) Sepsis Status: Acute Comment Review of Relevant I have reviewed the following items allyssa (where applicable) has been applied. Medications: Current Medications Medications (Trade) Dose Ordered Sig/Bhupinder Route PRN Reason Start Time Stop Time Status Last Admin Dose Admin Potassium Chloride/Dextrose/ Sod Cl 1,000 ml @ 75 mls/hr [id number] IV 10/31/20 11:00 11/01/20 13:39 11/01/20 06:06 Meropenem 500 mg/ Sodium Chloride 50 ml @ 100 mls/hr Q6HRS IV 10/31/20 12:00 11/01/20 06:07 Methylprednisolone Sodium Succinate (SOLU-Medrol 40MG VIAL) 40 mg Q12HR IV 10/31/20 21:00 11/01/20 09:03 Mesalamine (Delzicol) 800 mg TID PO 10/31/20 14:00 11/01/20 08:55 Alteplase, Recombinant (Cathflo For Central Catheter Clearance) 1 mg 1X ONCE INT CAT 10/31/20 15:15 10/31/20 15:19 DC 10/31/20 15:40 Alteplase, Recombinant (Cathflo For Central Catheter Clearance) 1 mg 1X ONCE INT CAT 11/01/20 06:00 11/01/20 06:01 DC 11/01/20 06:09 Justifications for Admission Other Justification NORMA WOODY MD November 01, 2020 09:50
--- NOTE | 2020-11-01 10:42 | PDOC ---
Date of Service: DATE: 11/01/20 TIME: 10:32 Subjective: Subjective: Feels better. Less diarrhea, less abd pain. Denies bleeding. Tolerating diet. Objective: Objective: Ordered full liquid diet after flex sig - having hard-boiled eggs and davis this morning. On IV steroids, PO mesalamine, IV PPI. Off atbx. Vital Signs: Vital Signs Date Time Temp Pulse Resp B/P (MAP) Pulse Ox O2 Delivery O2 Flow Rate FiO2 11/01/20 07:00 98.4 97 18 110/44 (66) 98 Room Air 98.4 Labs: Laboratory Tests Test 10/31/20 11:30 10/31/20 16:19 10/31/20 20:44 11/01/20 07:31 Glucose (Fingerstick) 139 mg/dL 165 mg/dL 128 mg/dL 307 mg/dL Imaging: Flex sig 10/31 Indication: colitis on imaging/negative stool studies Findings: JEANIE--no palpable lesions --'Scope advanced to ~mid-descending colon. Continuous inflammation with erythema, friability, serpiginous ulcerations c/w severe UC. No "pseudo- membrane". Extends above extent of exam. Rectal biopsies taken. Vikram. well. IMP: Late-onset TO, severe. REC: IV steroids; will aggravate diabetes, but no other rapid-acting treatment. PO mesalamine. Would not go above full liquid diet at present. PE: GEN: NAD LUNGS: CTAB HEART: RRR ABD: soft, some distention, does not seem tender, quiet BS - stool (liquid/brown) mixed with urine in commode NEURO/PSYCH: A & O 3, flat, doesn't say much A/P: Severe ulcerative colitis - new diagnosis - s/p flex sig yesterday, diarrhea bet ter on IV steroids Anemia (normal iron and B12) - stable DM - admitted w/ DKA/new diagnosis -- Feels better on steroids, less diarrhea. We discussed UC diagnosis and treatment moving forward - steroids not ideal long-term for several reasons - will need close outpt follow-up for maintenance meds (discussed mesalamine, possible need for biologic or other), complete colonoscopy etc. She did not have many questions - seemed overwhelmed. Continue same for today (but will stop Toradol) - will review all w/ Dr. Lindsay. Justicifation of Admission Dx: Justifications for Admission: Justification of Admission Dx: Yes SILVIA HARRIS November 01, 2020 10:42
[2020-11-01 11:00] VITALS: BP 107/72
[2020-11-01] MEDS ORDERED: POTASSIUM BICARB 20 MEQ EFFERVESCENT TABLET. PO ONE (11:15)
[2020-11-01 11:40] LABS: CALCIUM 8.2 mg/dL (8.5-10.1); CREATININE 0.7 mg/dL (0.6-1.0); GFR 109.5; MAGNESIUM 2.1 mg/dL (1.8-2.4); PHOSPHORUS 2.4 mg/dL (2.6-4.7); POTASSIUM 4.7 mmol/L (3.5-5.1)
[2020-11-01] MEDS: ENOXAPARIN 40 MG/0.4 ML SYRINGE. SQ SCH (14:20)
[2020-11-01 19:00] VITALS: BP 117/63
[2020-11-01] MEDS: INSULIN GLARGINE SYRINGE. SQ SCH (21:39)
[2020-11-01] MEDS ORDERED: INSULIN LISPRO 300 UNITS/3 ML VIAL. SQ ONE (22:00)
[2020-11-01] MEDS: traMADol 50 MG TABLET PO PRN (22:05)
[2020-11-01 23:00] VITALS: BP 102/59
[2020-11-02 03:00] VITALS: BP 115/65
[2020-11-02] MEDS: PANTOPRAZOLE 40 MG TABLET.DR. PO SCH ×2 (06:08→08:50)
[2020-11-02 07:03] VITALS: BP 102/66
[2020-11-02 07:22] LABS: ALBUMIN 1.7 g/dL (3.4-5.0); ALBUMIN/GLOBULIN RATIO 0.4 (1.0-1.7); CALCIUM 8.3 mg/dL (8.5-10.1); CREATININE 0.5 mg/dL (0.6-1.0); GFR 161.4; MAGNESIUM 2.1 mg/dL (1.8-2.4); POTASSIUM 4.5 mmol/L (3.5-5.1); TOTAL BILIRUBIN 0.2 mg/dL (0.2-1.0); TOTAL PROTEIN 5.8 g/dL (6.4-8.2)
[2020-11-02] MEDS: INSULIN LISPRO 300 UNITS/3 ML VIAL. SQ SCH ×6 (08:00→17:00)
[2020-11-02] MEDS: LACTOBACILLUS RHAMNOSUS GG 1 CAPSULE. PO SCH ×2 (08:49→20:27)
[2020-11-02] MEDS: MESALAMINE 400 MG CAP.DRTAB. PO SCH ×3 (08:50→20:26)
[2020-11-02] MEDS: methylPREDNISolone SOD SUCC PF 40 MG/ML VIAL. IV SCH (08:51)
[2020-11-02] MEDS ORDERED: POTASSIUM BICARB 20 MEQ EFFERVESCENT TABLET. PO SCH (09:00)
--- NOTE | 2020-11-02 09:02 | PDOC ---
Infectious Disease Note Subjective: Subjective Patient feels much better Diarrhea improving Appetite improved Remains afebrile for greater than 24 hours Denies headache, nausea, vomiting, symptoms dental pain Vital Signs: Vital Signs Vital Signs Date Time Temp Pulse Resp B/P (MAP) Pulse Ox O2 Delivery O2 Flow Rate FiO2 11/02/20 07:03 97.8 95 18 102/66 (78) 96 Room Air 97.8 Physical Exam: PHYSICAL EXAM GENERAL: Propped up in bed, alert, nontoxic appearing,looks better HEENT: Anicteric. Oropharynx,tongue piercing, Otherwise oral cavity is clear. NECK: Supple. Good range of motion. No gross fullness. LUNGS: Clear to auscultation bilaterally. HEART: S1, S2. ABDOMEN: Less distended with positive bowel sounds. Soft. mildly tender, no rebound EXTREMITIES: Without clubbing or cyanosis. No gross edema. SKIN: Warm to touch without generalized signs of rash. Multiple tattoos. NEUROLOGIC: Alert, nonfocal, PSYCHIATRIC: flat RUE-PICC (10/26) clean Medications: Inpatient Meds: Medications reviewed. Labs: Lab Laboratory Tests Test 11/01/20 11:09 11/01/20 11:22 11/01/20 17:04 11/01/20 20:35 Sodium Level 136 mmol/L (136-145) Potassium Level 4.7 mmol/L (3.5-5.1) Chloride Level 102 mmol/L (98-107) Carbon Dioxide Level 25 mmol/L (21-32) Anion Gap 9 (6-14) Blood Urea Nitrogen 5 mg/dL (7-20) Creatinine 0.7 mg/dL (0.6-1.0) Estimated GFR (Cockcroft-Gault) 109.5 Glucose Level 287 mg/dL (70-99) Calcium Level 8.2 mg/dL (8.5-10.1) Phosphorus Level 2.4 mg/dL (2.6-4.7) Magnesium Level 2.1 mg/dL (1.8-2.4) Glucose (Fingerstick) 333 mg/dL (70-99) 342 mg/dL (70-99) 250 mg/dL (70-99) Test 11/02/20 05:22 11/02/20 06:51 Sodium Level 136 mmol/L (136-145) Potassium Level 4.5 mmol/L (3.5-5.1) Chloride Level 102 mmol/L (98-107) Carbon Dioxide Level 25 mmol/L (21-32) Anion Gap 9 (6-14) Blood Urea Nitrogen 6 mg/dL (7-20) Creatinine 0.5 mg/dL (0.6-1.0) Estimated GFR (Cockcroft-Gault) 161.4 BUN/Creatinine Ratio 12 (6-20) Glucose Level 307 mg/dL (70-99) Calcium Level 8.3 mg/dL (8.5-10.1) Phosphorus Level 3.0 mg/dL (2.6-4.7) Magnesium Level 2.1 mg/dL (1.8-2.4) Total Bilirubin 0.2 mg/dL (0.2-1.0) Aspartate Amino Transf (AST/SGOT) 29 U/L (15-37) Alanine Aminotransferase (ALT/SGPT) 32 U/L (14-59) Alkaline Phosphatase 69 U/L (46-116) Total Protein 5.8 g/dL (6.4-8.2) Albumin 1.7 g/dL (3.4-5.0) Albumin/Globulin Ratio 0.4 (1.0-1.7) Glucose (Fingerstick) 349 mg/dL (70-99) Objective: Assessment: Fever pattern improved cultures sent, infectious serology negative Diarrhea with repeat CT showing changes of colitis c-diff neg and stool studies neg, ulcerative colitis changes on sigmoidoscopy, on steroids DKA PCN allergy - hives and throat swelling but tolerates Amoxicillin Heart murmur Recent dental cleaning with pre Amox, ct maxillofacial neg for acute changes Just finished steroids Right adnexal cyst, 3 of uterine fibroids status post removal couple of years ago Plan: Plan of Care Monitor off antibiotics F/U stool crypto and giardia ag Probiotics Maintain hydration Maintain aspiration precautions Monitor labs/temp PICC management per primary Discussed with AYLA CENTENO MD November 02, 2020 09:02
[2020-11-02 10:24] VITALS: BP 108/67
--- NOTE | 2020-11-02 11:57 | NUR ---
SW following. Discussed with RN, pt from home, room air, full liquid diet, COVID-19 negative. Per ID - monitor off abx. RN advised no SW needs at this time. SW will continue to follow.
--- NOTE | 2020-11-02 13:18 | PDOC ---
Date of Service: DATE: 11/02/20 TIME: 13:13 Subjective: Subjective: Feeling better. Less diarrhea (stooling w/ some form now), less pain. Was upset earlier about liquid diet - nurse called me to clarify - we ordered full liquids after flex sig but was given regular food for awhile, then brought liquids - gave okay for regular diet. Has acid reflux, no vomiting for a couple days. Doesn't like swallowing big pills. Objective: Vital Signs: Vital Signs Date Time Temp Pulse Resp B/P (MAP) Pulse Ox O2 Delivery O2 Flow Rate FiO2 11/02/20 10:24 98.0 87 18 108/67 (81) 97 Room Air 98.0 Labs: Laboratory Tests Test 11/01/20 17:04 11/01/20 20:35 11/02/20 05:22 11/02/20 06:51 Glucose (Fingerstick) 342 mg/dL 250 mg/dL 349 mg/dL Sodium Level 136 mmol/L Potassium Level 4.5 mmol/L Chloride Level 102 mmol/L Carbon Dioxide Level 25 mmol/L Anion Gap 9 Blood Urea Nitrogen 6 mg/dL Creatinine 0.5 mg/dL Estimated GFR (Cockcroft-Gault) 161.4 BUN/Creatinine Ratio 12 Glucose Level 307 mg/dL Calcium Level 8.3 mg/dL Phosphorus Level 3.0 mg/dL Magnesium Level 2.1 mg/dL Total Bilirubin 0.2 mg/dL Aspartate Amino Transf (AST/SGOT) 29 U/L Alanine Aminotransferase (ALT/SGPT) 32 U/L Alkaline Phosphatase 69 U/L Total Protein 5.8 g/dL Albumin 1.7 g/dL Albumin/Globulin Ratio 0.4 Test 11/02/20 10:58 Glucose (Fingerstick) 221 mg/dL PE: GEN: NAD LUNGS: CTAB HEART: RRR ABD: NABS, S/ND/NT NEURO/PSYCH: A & O 3, flat A/P: Severe ulcerative colitis, DM Anemia (normal iron and B12) - stable/better GERD - on PPI -- Change to PO steroids - plan for eventual taper discussed today, also reminded of need for outpt follow-up. Continue PPI, consider tandem EGD w/ outpt colonoscopy. Some confusion re: diet - okay for regular food per GI. Justicifation of Admission Dx: Justifications for Admission: Justification of Admission Dx: Yes SILVIA HARRIS November 02, 2020 13:18
[2020-11-02] MEDS: traMADol 50 MG TABLET PO PRN ×2 (14:19→20:27)
[2020-11-02] MEDS: ENOXAPARIN 40 MG/0.4 ML SYRINGE. SQ SCH (14:20)
[2020-11-02] MEDS: ONDANSETRON PF 4 MG/2 ML VIAL. IVP PRN (14:20)
[2020-11-02] MEDS: fentaNYL PF VIAL 100 MCG/2 ML VIAL IVP PRN (14:24)
[2020-11-02 14:34] VITALS: BP 108/66
--- NOTE | 2020-11-02 14:50 | PDOC ---
[employer] PROGRESS NOTE Date of Service DOS: DATE: 11/02/20 TIME: 14:49 Chief Complaint Chief Complaint A/P: Nausea, vomiting, fever, and weakness. Found to be in DKA (blood sugar 900). Fever of unknown origin Pancolitis - ulcerative colitis by sigmoidoscopy 10/31/2020 Pending repeat C. difficile Anxiety disorder - ativan PRN Anemia - Dehydration - Newly diagnosed diabetes - A1c 13.7 Hypokalemia Hypomagnesemia History of Present Illness History of Present Illness Ms Zamarripa is 45yo F w/ PMHx anemia, uterine fibroids who presented to the ED via EMS from home due to progressive weakness with 8-10 episodes of diarrhea and emesis. She was unable to lift her arms or legs. She had a headache 710 as well as some nominal pain 7 out of 10. She had just recently finished treatment with amoxicillin and Medrol for dental caries last week. Very tearful she has no history that she knows of high blood sugar or diabetes. She follows at [facility]. Initially admitted to the ICU on DKA protocol with glucose over 900. 10/22: Up and trying to eat, some anxiety and very emotional still. Went up on meal dose insulin. Transfer out of ICU. Bolus additional 1 liter NS 10/25: Code blue call last night, found to be stable. This morning she was tired, weak, and tachycardic (HR: 119). She has no new concerns or complaints. 10/26: Rapid response with tachycardia and abdominal pain 10/27: Emesis overnight 10/30: emesis x 1 5-06 pm Status post rapid response 10-26 because of fever tachycardia and abdominal pain. Patient continues to have low-grade fevers. She does continue to complain of diffuse abdominal pain and diarrhea. We do recommend her to place a rectal tube and GI is okay with that. Pending CT abdomen pelvis per ID and continue with empiric IV antibiotics. does not have history of recent travel, hiking, camping or working outside. She works at home mainly does not have any pets and works for the [employer] for [employer]. Patient's chart, labs, images were reviewed and discussed with RN D/c Fluconazole 10/29 Await further GI f/u ? scope CONTINUE Zosyn, po vancomycin Probiotics d/w rn 10/31: Febrile 102.1 F. Glucose in 200s K 3.3. Still with abdominal pain today. D/w father bedside. Replace phos, mag, K. C diff negative. Sigmoidoscopy with ulcerative colitis 11/01: Afebrile. Glucose in 200s 300s. Abdominal pain a little better still with diarrhea. Labs improved. Afebrile. Her stools have firmed up a little bit today. Labs stable improved. Albumin 1.7. She is anxious to transition to p.o. steroids in the next several days. Vitals/I&O Vitals/I&O: Vital Signs Date Time Temp Pulse Resp B/P (MAP) Pulse Ox O2 Delivery O2 Flow Rate FiO2 11/02/20 14:34 97.9 90 18 108/66 (80) 98 Room Air 97.9 Physical Exam Physical Exam: GENERAL: Propped up in bed, alert, nontoxic appearing,looks better HEENT: Anicteric. Oropharynx,tongue piercing, Otherwise oral cavity is clear. NECK: Supple. Good range of motion. No gross fullness. LUNGS: Clear to auscultation bilaterally. HEART: S1, S2. ABDOMEN: Less distended with positive bowel sounds. Soft. mildly tender, no rebound EXTREMITIES: Without clubbing or cyanosis. No gross edema. SKIN: Warm to touch without generalized signs of rash. Multiple tattoos. NEUROLOGIC: Alert, nonfocal, PSYCHIATRIC: flat RUE-PICC (10/26) clean General: Alert, Oriented X3, Cooperative, No acute distress, mild distress, Other (General affect was improved from yesetday) Heart: Regular rate Abdomen: No tenderness Extremities: No clubbing, No cyanosis, No edema, Normal pulses Skin: No rashes, No breakdown Labs Labs: Laboratory Tests Test 11/01/20 17:04 11/01/20 20:35 11/02/20 05:22 11/02/20 06:51 Glucose (Fingerstick) 342 mg/dL (70-99) 250 mg/dL (70-99) 349 mg/dL (70-99) Sodium Level 136 mmol/L (136-145) Potassium Level 4.5 mmol/L (3.5-5.1) Chloride Level 102 mmol/L (98-107) Carbon Dioxide Level 25 mmol/L (21-32) Anion Gap 9 (6-14) Blood Urea Nitrogen 6 mg/dL (7-20) Creatinine 0.5 mg/dL (0.6-1.0) Estimated GFR (Cockcroft-Gault) 161.4 BUN/Creatinine Ratio 12 (6-20) Glucose Level 307 mg/dL (70-99) Calcium Level 8.3 mg/dL (8.5-10.1) Phosphorus Level 3.0 mg/dL (2.6-4.7) Magnesium Level 2.1 mg/dL (1.8-2.4) Total Bilirubin 0.2 mg/dL (0.2-1.0) Aspartate Amino Transf (AST/SGOT) 29 U/L (15-37) Alanine Aminotransferase (ALT/SGPT) 32 U/L (14-59) Alkaline Phosphatase 69 U/L (46-116) Total Protein 5.8 g/dL (6.4-8.2) Albumin 1.7 g/dL (3.4-5.0) Albumin/Globulin Ratio 0.4 (1.0-1.7) Test 11/02/20 10:58 Glucose (Fingerstick) 221 mg/dL (70-99) Assessment and Plan Assessmemt and Plan Problems Medical Problems: (1) DKA (diabetic ketoacidoses) Status: Acute (2) Pancreatitis Status: Acute (3) Sepsis Status: Acute Comment Review of Relevant I have reviewed the following items allyssa (where applicable) has been applied. Medications: Current Medications Medications (Trade) Dose Ordered Sig/Bhupinder Route PRN Reason Start Time Stop Time Status Last Admin Dose Admin Pantoprazole Sodium (Protonix) 40 mg DAILYAC PO 11/02/20 07:30 11/02/20 08:50 Insulin Glargine (Lantus Syringe) 20 unit QHS SQ 11/01/20 21:00 11/01/20 21:39 Insulin Human Lispro (HumaLOG) 8 units TIDAC SQ 11/01/20 16:30 11/02/20 12:10 Tramadol HCl (Ultram) 50 mg PRN Q6HRS PRN PO MODERATE PAIN 4-6 11/01/20 22:00 11/02/20 14:19 Fentanyl Citrate (Fentanyl 2ml Vial) 25 mcg PRN Q3HRS PRN IVP SEVERE PAIN 7-10 11/01/20 22:00 11/02/20 14:24 Potassium Bicarbonate (Potassium Effervescent Tablet) 20 meq DAILY PO 11/02/20 09:00 11/02/20 08:50 Justifications for Admission Other Justification NORMA WOODY MD November 02, 2020 14:49
--- NOTE | 2020-11-02 17:13 | PATHOLOGY ---
[facility] Accession Number: [id number] . 01 Material submitted: . rectum - RECTAL BX . 01 Frozen section diagnosis: . . /QMS . 02 Diagnosis: Colorectal biopsies, rectum: - Marked active chronic colitis with extensive ulceration. See comment. (JPM:damon; 11/02/2020) S 11/02/2020 0939 Local . 02 Comment: Sections of the rectal biopsy reveal multiple segments of rectal mucosa showing marked active chronic inflammation with extensive ulceration. There are no granulomas or specific features. The findings are supportive of the diagnosis of active chronic inflammatory bowel disease and are consistent with active chronic ulcerative colitis. There is no dysplasia or evidence of malignancy. (JPM:damon; 11/02/2020) . 02 Electronically signed: . Clay Clark MD, Pathologist NPI- [id number] . 01 Gross description: . The specimen is received in formalin, labeled "Monika Zamarripa", "rectal biopsy". Received are multiple fragments of pale miranda soft tissue ranging in size from 0.1 cm to 0.2 cm. The specimen is entirely submitted in cassette A1.(SNA; 11/01/2020) ALESSANDRO/CECILIA 11/01/2020 0854 Local . 02 Pathologist provided ICD-10: K52.9, K62.6 . 02 CPT . 440673 Specimen Comment: A courtesy copy of this report has been sent to [phone], [phone] Specimen Comment: [id number] Specimen Comment: Report sent to / DR PIZARRO Specimen Comment: A duplicate report has been generated due to demographic updates. Performed at: [address], [place], [place] [id number] MD Miguel Pleitez MD Phone: [phone] Performed at: 02 [facility] [address] [place], [place] [id number] MD Clay Clark MD Phone: [phone]
--- NOTE | 2020-11-02 17:30 | NUR ---
Pt was educated on self injection with insulin. She did her own self injection of 17U Humalog without complications at 1645.
[2020-11-02 19:00] VITALS: BP 97/65
[2020-11-02] MEDS: INSULIN GLARGINE SYRINGE. SQ SCH (20:32)
[2020-11-02 23:00] VITALS: BP 117/63
[2020-11-03 03:00] VITALS: BP 114/72
[2020-11-03 07:00] VITALS: BP 142/58
--- NOTE | 2020-11-03 07:46 | PDOC ---
[employer] PROGRESS NOTE Date of Service DOS: DATE: 11/03/20 TIME: 07:45 Chief Complaint Chief Complaint A/P: Nausea, vomiting, fever, and weakness. Found to be in DKA (blood sugar 900). Fever of unknown origin Pancolitis - ulcerative colitis by sigmoidoscopy 10/31/2020 Pending repeat C. difficile Anxiety disorder - ativan PRN Anemia - Dehydration - Newly diagnosed diabetes - A1c 13.7 Hypokalemia Hypomagnesemia History of Present Illness History of Present Illness Ms Zamarripa is 45yo F w/ PMHx anemia, uterine fibroids who presented to the ED via EMS from home due to progressive weakness with 8-10 episodes of diarrhea and emesis. She was unable to lift her arms or legs. She had a headache 710 as well as some nominal pain 7 out of 10. She had just recently finished treatment with amoxicillin and Medrol for dental caries last week. Very tearful she has no history that she knows of high blood sugar or diabetes. She follows at [facility]. Initially admitted to the ICU on DKA protocol with glucose over 900. 10/22: Up and trying to eat, some anxiety and very emotional still. Went up on meal dose insulin. Transfer out of ICU. Bolus additional 1 liter NS 10/25: Code blue call last night, found to be stable. This morning she was tired, weak, and tachycardic (HR: 119). She has no new concerns or complaints. 10/26: Rapid response with tachycardia and abdominal pain 10/27: Emesis overnight 10/30: emesis x 1 5-06 pm Status post rapid response 10-26 because of fever tachycardia and abdominal pain. Patient continues to have low-grade fevers. She does continue to complain of diffuse abdominal pain and diarrhea. We do recommend her to place a rectal tube and GI is okay with that. Pending CT abdomen pelvis per ID and continue with empiric IV antibiotics. does not have history of recent travel, hiking, camping or working outside. She works at home mainly does not have any pets and works for the [employer] for [employer]. Patient's chart, labs, images were reviewed and discussed with RN D/c Fluconazole 10/29 Await further GI f/u ? scope CONTINUE Zosyn, po vancomycin Probiotics d/w rn 10/31: Febrile 102.1 F. Glucose in 200s K 3.3. Still with abdominal pain today. D/w father bedside. Replace phos, mag, K. C diff negative. Sigmoidoscopy with ulcerative colitis 11/01: Afebrile. Glucose in 200s 300s. Abdominal pain a little better still with diarrhea. Labs improved. 11/02: Afebrile. Her stools have firmed up a little bit today. Labs stable improved. Albumin 1.7. She is anxious to transition to p.o. steroids in the next several days. Afebrile. Had 6 more loose bowel movements after changing to p.o. prednisone. She feels like she is taking step. No vomiting. Pain is more severe 7 out of 10. Glucose 176 Vitals/I&O Vitals/I&O: Vital Signs Date Time Temp Pulse Resp B/P (MAP) Pulse Ox O2 Delivery O2 Flow Rate FiO2 11/03/20 03:00 97.6 74 18 114/72 (86) 95 97.6 11/02/20 23:00 Room Air I & O 11/02/20 11/02/20 11/03/20 15:00 23:00 07:00 Intake Total 450 ml Output Total 0 ml Balance 450 ml Physical Exam Physical Exam: GENERAL: Propped up in bed, alert, nontoxic appearing,looks better HEENT: Anicteric. Oropharynx,tongue piercing, Otherwise oral cavity is clear. NECK: Supple. Good range of motion. No gross fullness. LUNGS: Clear to auscultation bilaterally. HEART: S1, S2. ABDOMEN: Less distended with positive bowel sounds. Soft. mildly tender, no rebound EXTREMITIES: Without clubbing or cyanosis. No gross edema. SKIN: Warm to touch without generalized signs of rash. Multiple tattoos. NEUROLOGIC: Alert, nonfocal, PSYCHIATRIC: flat RUE-PICC (10/26) clean General: Alert, Oriented X3, Cooperative, No acute distress, mild distress, O ther (General affect was improved from yesetday) Heart: Regular rate Abdomen: No tenderness Extremities: No clubbing, No cyanosis, No edema, Normal pulses Skin: No rashes, No breakdown Labs Labs: Laboratory Tests Test 11/02/20 10:58 11/02/20 16:08 11/02/20 19:52 11/03/20 07:01 Glucose (Fingerstick) 221 mg/dL (70-99) 338 mg/dL (70-99) 294 mg/dL (70-99) 269 mg/dL (70-99) Assessment and Plan Assessmemt and Plan Problems Medical Problems: (1) DKA (diabetic ketoacidoses) Status: Acute (2) Pancreatitis Status: Acute (3) Sepsis Status: Acute Comment Review of Relevant I have reviewed the following items allyssa (where applicable) has been applied. Medications: Current Medications Medications (Trade) Dose Ordered Sig/Bhupinder Route PRN Reason Start Time Stop Time Status Last Admin Dose Admin Potassium Bicarbonate (Potassium Effervescent Tablet) 20 meq DAILY PO 11/02/20 09:00 11/02/20 14:49 DC 11/02/20 08:50 Justifications for Admission Other Justification NORMA WOODY MD November 03, 2020 07:46
[2020-11-03] MEDS: INSULIN LISPRO 300 UNITS/3 ML VIAL. SQ SCH ×6 (08:00→17:07)
[2020-11-03] MEDS: LACTOBACILLUS RHAMNOSUS GG 1 CAPSULE. PO SCH (08:05)
[2020-11-03] MEDS: predniSONE 20 MG TABLET PO SCH (08:05)
[2020-11-03] MEDS: MESALAMINE 400 MG CAP.DRTAB. PO SCH ×3 (08:06→21:29)
--- NOTE | 2020-11-03 09:18 | PDOC ---
Infectious Disease Note Subjective: Subjective Patient feels of abdominal discomfort Diarrhea has recurred Tolerating meals well Remains afebrile for greater than 24 hours Denies headache, nausea, vomiting, symptoms dental pain Vital Signs: Vital Signs Vital Signs Date Time Temp Pulse Resp B/P (MAP) Pulse Ox O2 Delivery O2 Flow Rate FiO2 11/03/20 08:00 Room Air 11/03/20 07:00 98.0 77 18 142/58 (86) 97 98.0 Physical Exam: PHYSICAL EXAM GENERAL: Propped up in bed, alert, nontoxic appearing,looks better HEENT: Anicteric. Oropharynx,tongue piercing, Otherwise oral cavity is clear. NECK: Supple. Good range of motion. No gross fullness. LUNGS: Clear to auscultation bilaterally. HEART: S1, S2. ABDOMEN: Less distended with positive bowel sounds. Soft. mildly tender, no rebound EXTREMITIES: Without clubbing or cyanosis. No gross edema. SKIN: Warm to touch without generalized signs of rash. Multiple tattoos. NEUROLOGIC: Alert, nonfocal, PSYCHIATRIC: flat RUE-PICC (10/26) clean Medications: Inpatient Meds: Medications reviewed. Labs: Lab Laboratory Tests Test 11/02/20 10:58 11/02/20 16:08 11/02/20 19:52 11/03/20 07:01 Glucose (Fingerstick) 221 mg/dL (70-99) 338 mg/dL (70-99) 294 mg/dL (70-99) 269 mg/dL (70-99) Objective: Assessment: Fever pattern improved cultures negative infectious serology negative Ulcerative colitis DKA PCN allergy - hives and throat swelling but tolerates Amoxicillin Heart murmur Recent dental cleaning with pre Amox, ct maxillofacial neg for acute changes Right adnexal cyst, 3 of uterine fibroids status post removal couple of years ago Plan: Plan of Care GI team following Monitor off antibiotics DC probiotics F/U stool crypto and giardia ag pending PICC management per primary Discussed with AYLA CENTENO MD November 03, 2020 09:18
[2020-11-03] MEDS: traMADol 50 MG TABLET PO PRN (10:14)
--- NOTE | 2020-11-03 10:14 | PDOC ---
Date of Service: DATE: 11/03/20 TIME: 10:10 Subjective: Subjective: Feels worse today - more abd pain. Tolerating diet, passing gas and stool. Objective: Objective: D/w nurse - pt concerned w/ loose stools - stool was actually mixed formed and loose. Pt also concerned w/ hyperglycemia. Vital Signs: Vital Signs Date Time Temp Pulse Resp B/P (MAP) Pulse Ox O2 Delivery O2 Flow Rate FiO2 11/03/20 08:00 Room Air 11/03/20 07:00 98.0 77 18 142/58 (86) 97 98.0 Labs: Laboratory Tests Test 11/02/20 10:58 11/02/20 16:08 11/02/20 19:52 11/03/20 07:01 Glucose (Fingerstick) 221 mg/dL 338 mg/dL 294 mg/dL 269 mg/dL Diagnosis: Colorectal biopsies, rectum: - Marked active chronic colitis with extensive ulceration. See comment. Comment: Sections of the rectal biopsy reveal multiple segments of rectal mucosa showing marked active chronic inflammation with extensive ulceration. There are no granulomas or specific features. The findings are supportive of the diagnosis of active chronic inflammatory bowel disease and are consistent with active chronic ulcerative colitis. There is no dysplasia or evidence of malignancy. PE: GEN: NAD LUNGS: CTAB HEART: RRR ABD: some distention (stable), seems more tender today - diffusely, pretty quiet NEURO/PSYCH: A & O 3, flat, sleepy today A/P: Severe ulcerative colitis, DM - changed to PO steroids yesterday Anemia - stable GERD - on PPI -- Feels worse today - will review w/ Dr. Lindsay - in meantime, check KUB. Not unexpected to have loose stools w/ ulcerative colitis. Justicifation of Admission Dx: Justifications for Admission: Justification of Admission Dx: Yes SILVIA HARRIS November 03, 2020 10:14
--- NOTE | 2020-11-03 10:55 | RAD ---
INDICATION: Reason: UC, increased abd pain / Spl. Instructions: / History: COMPARISON: Oct 27 2020 IMPRESSION: Abdomen: Single view obtained. Intrauterine device is seen within the pelvis. Calcifications in the p nadira which is frequently secondary to phleboliths. Nonspecific but not grossly obstructive bowel gas pattern. There is an air-filled loop of bowel in the upper abdomen which could either be secondary t o air within the stomach or air within the colon. On previous CT the patient did have air within the colon at this location with ahaustral pattern which could be from colitis. Electronically signed by: Al Nance MD (11/03/2020 10:53 AM) [id number]
[2020-11-03 11:00] VITALS: BP 98/64
[2020-11-03] MEDS: ENOXAPARIN 40 MG/0.4 ML SYRINGE. SQ SCH (14:47)
[2020-11-03 15:00] VITALS: BP 91/53
[2020-11-03 19:35] VITALS: BP 102/65
[2020-11-03] MEDS: INSULIN GLARGINE SYRINGE. SQ SCH (21:35)
[2020-11-03 23:22] VITALS: BP 101/60
[2020-11-04 03:42] VITALS: BP 97/62
[2020-11-04 07:00] VITALS: BP 100/61
--- NOTE | 2020-11-04 07:29 | PDOC ---
[employer] PROGRESS NOTE Date of Service DOS: DATE: 11/04/20 TIME: 07:23 Chief Complaint Chief Complaint A/P: Nausea, vomiting, fever, and weakness. Found to be in DKA (blood sugar 900). Fever of unknown origin Pancolitis - ulcerative colitis by sigmoidoscopy 10/31/2020. confirmed on pathology. Pending repeat C. difficile Anxiety disorder - ativan PRN Anemia - Dehydration - Newly diagnosed diabetes - A1c 13.7 Hypokalemia Hypomagnesemia History of Present Illness History of Present Illness Ms Zamarripa is 45yo F w/ PMHx anemia, uterine fibroids who presented to the ED via EMS from home due to progressive weakness with 8-10 episodes of diarrhea and emesis. She was unable to lift her arms or legs. She had a headache 710 as well as some nominal pain 7 out of 10. She had just recently finished treatment with amoxicillin and Medrol for dental caries last week. Very tearful she has no history that she knows of high blood sugar or diabetes. She follows at [facility]. Initially admitted to the ICU on DKA protocol with glucose over 900. 10/22: Up and trying to eat, some anxiety and very emotional still. Went up on meal dose insulin. Transfer out of ICU. Bolus additional 1 liter NS 10/25: Code blue call last night, found to be stable. This morning she was tired, weak, and tachycardic (HR: 119). She has no new concerns or complaints. 10/26: Rapid response with tachycardia and abdominal pain 10/27: Emesis overnight 10/30: emesis x 1 5- pm Status post rapid response 10-26 because of fever tachycardia and abdominal pain. Patient continues to have low-grade fevers. She does continue to complain of diffuse abdominal pain and diarrhea. We do recommend her to place a rectal tube and GI is okay with that. Pending CT abdomen pelvis per ID and continue with empiric IV antibiotics. does not have history of recent travel, hiking, camping or working outside. She works at home mainly does not have any pets and works for the [employer]. Patient's chart, labs, images were reviewed and discussed with RN D/c Fluconazole 10/29 Await further GI f/u ? scope CONTINUE Zosyn, po vancomycin Probiotics d/w rn 10/31: Febrile 102.1 F. Glucose in 200s K 3.3. Still with abdominal pain today. D/w father bedside. Replace phos, mag, K. C diff negative. Sigmoidoscopy with ulcerative colitis 11/01: Afebrile. Glucose in 200s 300s. Abdominal pain a little better still with diarrhea. Labs improved. 11/02: Afebrile. Her stools have firmed up a little bit today. Labs stable improved. Albumin 1.7. She is anxious to transition to p.o. steroids in the next several days. 11/03: Afebrile. 6 loose bowel movements after changing to p.o. prednisone. No vomiting. Pain is more severe 7 out of 10. Glucose 176. Pathology consistent with ulcerative colitis. Afebrile overnight. Glucose still moderately elevated. She has more severe pain today and passing more gas still with loose bowels. She feels like her pain is not well enough controlled today worse than 48 hours ago. Vitals/I&O Vitals/I&O: Vital Signs Date Time Temp Pulse Resp B/P (MAP) Pulse Ox O2 Delivery O2 Flow Rate FiO2 11/04/20 03:42 98.6 76 18 97/62 (74) 95 Room Air 98.6 I & O 11/03/20 11/03/20 11/04/20 15:00 23:00 07:00 Intake Total 180 ml 350 ml 540 ml Balance 180 ml 350 ml 540 ml Physical Exam Physical Exam: GENERAL: Propped up in bed, alert, nontoxic appearing,looks better HEENT: Anicteric. Oropharynx,tongue piercing, Otherwise oral cavity is clear. NECK: Supple. Good range of motion. No gross fullness. LUNGS: Clear to auscultation bilaterally. HEART: S1, S2. ABDOMEN: Less distended with positive bowel sounds. Soft. mildly tender, no rebound EXTREMITIES: Without clubbing or cyanosis. No gross edema. SKIN: Warm to touch without generalized signs of rash. Multiple tattoos. NEUROLOGIC: Alert, nonfocal, PSYCHIATRIC: flat RUE-PICC (10/26) clean General: Alert, Oriented X3, Cooperative, No acute distress, mild distress, Other (General affect was improved from yesetday) Heart: Regular rate Abdomen: No tenderness Extremities: No clubbing, No cyanosis, No edema, Normal pulses Skin: No rashes, No breakdown Labs Labs: Laboratory Tests Test 11/03/20 11:15 11/03/20 16:58 11/03/20 21:25 Glucose (Fingerstick) 178 mg/dL (70-99) 151 mg/dL (70-99) 120 mg/dL (70-99) Assessment and Plan Assessmemt and Plan Problems Medical Problems: (1) DKA (diabetic ketoacidoses) Status: Acute (2) Pancreatitis Status: Acute (3) Sepsis Status: Acute Comment Review of Relevant I have reviewed the following items allyssa (where applicable) has been applied. Medications: Current Medications Medications (Trade) Dose Ordered Sig/Bhupinder Route PRN Reason Start Time Stop Time Status Last Admin Dose Admin Prednisone (Prednisone) 40 mg DAILY PO 11/03/20 09:00 11/03/20 08:05 Justifications for Admission Other Justification NORMA WOODY MD November 04, 2020 07:29
[2020-11-04] MEDS: INSULIN LISPRO 300 UNITS/3 ML VIAL. SQ SCH ×6 (08:00→17:11)
[2020-11-04] MEDS: predniSONE 20 MG TABLET PO SCH (08:15)
[2020-11-04] MEDS: MESALAMINE 400 MG CAP.DRTAB. PO SCH ×3 (08:15→20:40)
[2020-11-04] MEDS: ACETAMINOPHEN 325 MG TABLET. PO PRN (08:20)
[2020-11-04] MEDS: PANTOPRAZOLE 40 MG TABLET.DR. PO SCH (08:24)
--- NOTE | 2020-11-04 08:55 | PDOC ---
Infectious Disease Note Subjective: Subjective Patient complains of abdominal discomfort Diarrhea has recurred Denies any fever, nausea, vomiting, shortness of breath or cough Vital Signs: Vital Signs Vital Signs Date Time Temp Pulse Resp B/P (MAP) Pulse Ox O2 Delivery O2 Flow Rate FiO2 11/04/20 08:00 Room Air 11/04/20 07:00 98.9 89 17 100/61 (74) 94 98.9 Physical Exam: PHYSICAL EXAM GENERAL: Propped up in bed, alert, nontoxic appearing,looks better HEENT: Anicteric. Oropharynx,tongue piercing, Otherwise oral cavity is clear. NECK: Supple. Good range of motion. No gross fullness. LUNGS: Clear to auscultation bilaterally. HEART: S1, S2. ABDOMEN: Less distended with positive bowel sounds. Soft. mildly tender, no rebound EXTREMITIES: Without clubbing or cyanosis. No gross edema. SKIN: Warm to touch without generalized signs of rash. Multiple tattoos. NEUROLOGIC: Alert, nonfocal, PSYCHIATRIC: flat RUE-PICC (10/26) clean Medications: Inpatient Meds: Medications reviewed. Labs: Lab Laboratory Tests Test 11/03/20 11:15 11/03/20 16:58 11/03/20 21:25 11/04/20 07:25 Glucose (Fingerstick) 178 mg/dL (70-99) 151 mg/dL (70-99) 120 mg/dL (70-99) 117 mg/dL (70-99) Objective: Assessment: Fever pattern improved cultures negative infectious serology negative Ulcerative colitis Abdominal discomfort KUB noted from 11/03 DKA PCN allergy - hives and throat swelling but tolerates Amoxicillin Heart murmur Recent dental cleaning with pre Amox, ct maxillofacial neg for acute changes Right adnexal cyst, 3 of uterine fibroids status post removal couple of years ago Plan: Plan of Care GI team is following KUB results noted Monitor off antibiotics F/U stool crypto and giardia ag pending PICC management per primary Discussed with mother at bedside AYLA LAFLEUR MD November 04, 2020 08:54
[2020-11-04] MEDS: traMADol 50 MG TABLET PO PRN ×2 (09:34→20:40)
--- NOTE | 2020-11-04 09:45 | NUR ---
SW following. Discussed with RN, pt from home, room air, ada diet, COVID-19 negative. ID has signed off. Per RN pt thinks she is discharging home today. SW will continue to follow.
--- NOTE | 2020-11-04 10:03 | PDOC ---
Date of Service: DATE: 11/04/20 TIME: 10:00 Subjective: Subjective: Feels a little better today, stomach hurt overnight. [place] stools, also loose. Tolerating diet. Objective: Objective: D/w nurse - pt indicated she'd like to go home today. Vital Signs: Vital Signs Date Time Temp Pulse Resp B/P (MAP) Pulse Ox O2 Delivery O2 Flow Rate FiO2 11/04/20 08:00 Room Air 11/04/20 07:00 98.9 89 17 100/61 (74) 94 98.9 Labs: Laboratory Tests Test 11/03/20 11:15 11/03/20 16:58 11/03/20 21:25 11/04/20 07:25 Glucose (Fingerstick) 178 mg/dL 151 mg/dL 120 mg/dL 117 mg/dL Imaging: KUB 11/03 Abdomen: Single view obtained. Intrauterine device is seen within the pelvis. Calcifications in the pelvis which is frequently secondary to phleboliths. Nonspecific but not grossly obstructive bowel gas pattern. There is an air-fille d loop of bowel in the upper abdomen which could either be secondary to air within the stomach or air within the colon. On previous CT the patient did have air within the colon at this location with ahaustral pattern which could be from colitis. PE: GEN: NAD LUNGS: CTAB HEART: RRR ABD: on the quiet side, some discomfort but some better today NEURO/PSYCH: A & O 3, flat A/P: Severe ulcerative colitis, DM Anemia GERD -- Okay to DC on prednisone and PPI per GI - nurse will let me know if discharge is the plan and I will provide steroid Rx. Office will contact to schedule follow- up. Justicifation of Admission Dx: Justifications for Admission: Justification of Admission Dx: Yes SILVIA HARRIS November 04, 2020 10:03
[2020-11-04 11:00] VITALS: BP 93/58
[2020-11-04] MEDS: ENOXAPARIN 40 MG/0.4 ML SYRINGE. SQ SCH (14:25)
[2020-11-04 15:00] VITALS: BP_SYST 109; BP_SYST 178; BP_DIAS 66; BP_DIAS 78
[2020-11-04] MEDS: fentaNYL PF VIAL 100 MCG/2 ML VIAL IVP PRN (15:29)
[2020-11-04 19:00] VITALS: BP 106/72
[2020-11-04] MEDS: INSULIN GLARGINE SYRINGE. SQ SCH (20:47)
[2020-11-04 23:00] VITALS: BP 105/60
[2020-11-05 03:00] VITALS: BP 105/74
[2020-11-05 05:53] LABS: BASO % 1 % (0-3); EOS # 0.1 x10^3/uL (0.0-0.7); EOS % 3 % (0-3); HEMATOCRIT 26.4 % (36.0-47.0); HEMOGLOBIN 8.4 g/dL (12.0-15.5); LYMPH % 21 % (24-48); MEAN CORPUSCULAR HEMOGLOBIN 26 pg (25-35); MEAN CORPUSCULAR HGB CONC 32 g/dL (31-37); MEAN CORPUSCULAR VOLUME 80 fL (79-100); MONO # 0.4 x10^3/uL (0.0-1.1); MONO % 8 % (0-9); NEUT # 3.1 x10^3/uL (1.8-7.7); NEUT % 68 % (31-73); PLATELET COUNT 502 x10^3/uL (140-400); WHITE BLOOD COUNT 4.6 x10^3/uL (4.0-11.0)
[2020-11-05 06:17] LABS: ALBUMIN 1.8 g/dL (3.4-5.0); ALBUMIN/GLOBULIN RATIO 0.5 (1.0-1.7); CALCIUM 8.1 mg/dL (8.5-10.1); CREATININE 0.5 mg/dL (0.6-1.0); GFR 161.4; POTASSIUM 3.8 mmol/L (3.5-5.1); TOTAL BILIRUBIN 0.1 mg/dL (0.2-1.0); TOTAL PROTEIN 5.4 g/dL (6.4-8.2)
[2020-11-05 07:06] VITALS: BP 102/63
[2020-11-05] MEDS: INSULIN LISPRO 300 UNITS/3 ML VIAL. SQ SCH ×4 (08:00→11:46)
[2020-11-05] MEDS: PANTOPRAZOLE 40 MG TABLET.DR. PO SCH (08:32)
[2020-11-05] MEDS: predniSONE 20 MG TABLET PO SCH (08:32)
[2020-11-05] MEDS: MESALAMINE 400 MG CAP.DRTAB. PO SCH (08:40)
[2020-11-05] MEDS ORDERED: MESA400C2 PO (10:15)
[2020-11-05] MEDS ORDERED: ONDA4TAB12 PO (10:15)
[2020-11-05] MEDS ORDERED: INSU100I13 SQ (10:15)
[2020-11-05] MEDS ORDERED: INSU100I17 SQ (10:15)
[2020-11-05] MEDS ORDERED: PRED20TA PO (10:15)
[2020-11-05] MEDS ORDERED: PANT40TA77 PO (10:15)
--- NOTE | 2020-11-05 10:25 | PDOC ---
[employer] PROGRESS NOTE Date of Service DOS: DATE: 11/05/20 TIME: Chief Complaint Chief Complaint A/P: Nausea, vomiting, fever, and weakness. Found to be in DKA (blood sugar 900). Fever of unknown origin Pancolitis - ulcerative colitis by sigmoidoscopy 10/31/2020. confirmed on pathology. Pending repeat C. difficile Anxiety disorder - ativan PRN Anemia - Dehydration - Newly diagnosed diabetes - A1c 13.7 Hypokalemia Hypomagnesemia History of Present Illness History of Present Illness Ms Zamarripa is 45yo F w/ PMHx anemia, uterine fibroids who presented to the ED via EMS from home due to progressive weakness with 8-10 episodes of diarrhea and emesis. She was unable to lift her arms or legs. She had a headache 710 as well as some nominal pain 7 out of 10. She had just recently finished treatment with amoxicillin and Medrol for dental caries last week. Very tearful she has no history that she knows of high blood sugar or diabetes. She follows at [facility]. Initially admitted to the ICU on DKA protocol with glucose over 900. 10/22: Up and trying to eat, some anxiety and very emotional still. Went up on meal dose insulin. Transfer out of ICU. Bolus additional 1 liter NS 10/25: Code blue call last night, found to be stable. This morning she was tired, weak, and tachycardic (HR: 119). She has no new concerns or complaints. 10/26: Rapid response with tachycardia and abdominal pain 10/27: Emesis overnight 10/30: emesis x 1 5- pm Status post rapid response 10-26 because of fever tachycardia and abdominal pain. Patient continues to have low-grade fevers. She does continue to complain of diffuse abdominal pain and diarrhea. We do recommend her to place a rectal tube and GI is okay with that. Pending CT abdomen pelvis per ID and continue with empiric IV antibiotics. does not have history of recent travel, hiking, camping or working outside. She works at home mainly does not have any pets and works for the [employer] services. Patient's chart, labs, images were reviewed and discussed with RN D/c Fluconazole 10/29 Await further GI f/u ? scope CONTINUE Zosyn, po vancomycin Probiotics d/w rn 10/31: Febrile 102.1 F. Glucose in 200s K 3.3. Still with abdominal pain today. D/w father bedside. Replace phos, mag, K. C diff negative. Sigmoidoscopy with ulcerative colitis 11/01: Afebrile. Glucose in 200s 300s. Abdominal pain a little better still with diarrhea. Labs improved. 11/02: Afebrile. Her stools have firmed up a little bit today. Labs stable improved. Albumin 1.7. She is anxious to transition to p.o. steroids in the next several days. 11/03: Afebrile. 6 loose bowel movements after changing to p.o. prednisone. No vomiting. Pain is more severe 7 out of 10. Glucose 176. Pathology consistent with ulcerative colitis. 11/04: Afebrile overnight. Glucose still moderately elevated. She has more severe pain today and passing more gas still with loose bowels. She feels like her pain is not well enough controlled today worse than 48 hours ago. Afebrile overnight had one loose bowel movement. Glucose in the low 100s. She is actually pain-free for the first day and several days. She is smiling. She feels comfortable for discharge today and will go home on 40 mg of prednisone daily for 30 days and contact [facility] gastroenterology for refills. She also go home on mesalamine 3 times daily and pantoprazole 40 mg daily as well as Lantus 20 units nightly. Glucose is less than 124. Can decrease by 2 units following day. Also sliding scale of Humalog. Glucometer as well for home testing. [facility] paperwork has been submitted. Follow-up with [facility] in the next 2 to 4 weeks Vitals/I&O Vitals/I&O: Vital Signs Date Time Temp Pulse Resp B/P (MAP) Pulse Ox O2 Delivery O2 Flow Rate FiO2 11/05/20 07:06 98.8 91 18 102/63 (76) 93 Room Air 98.8 11/04/20 15:00 I & O 11/04/20 11/04/20 11/05/20 15:00 23:00 07:00 Intake Total 180 ml 300 ml 550 ml Balance 180 ml 300 ml 550 ml Physical Exam Physical Exam: GENERAL: Propped up in bed, alert, nontoxic appearing,looks better HEENT: Anicteric. Oropharynx,tongue piercing, Otherwise oral cavity is clear. NECK: Supple. Good range of motion. No gross fullness. LUNGS: Clear to auscultation bilaterally. HEART: S1, S2. ABDOMEN: Less distended with positive bowel sounds. Soft. mildly tender, no rebound EXTREMITIES: Without clubbing or cyanosis. No gross edema. SKIN: Warm to touch without generalized signs of rash. Multiple tattoos. NEUROLOGIC: Alert, nonfocal, PSYCHIATRIC: flat RUE-PICC (10/26) clean General: Alert, Oriented X3, Cooperative, No acute distress, mild distress, Other (General affect was improved from yesetday) Heart: Regular rate Abdomen: No tenderness Extremities: No clubbing, No cyanosis, No edema, Normal pulses Skin: No rashes, No breakdown Labs Labs: Laboratory Tests Test 11/04/20 11:34 11/04/20 16:59 11/04/20 20:10 11/05/20 05:40 Glucose (Fingerstick) 149 mg/dL (70-99) 183 mg/dL (70-99) 88 mg/dL (70-99) White Blood Count 4.6 x10^3/uL (4.0-11.0) Red Blood Count 3.30 x10^6/uL (3.50-5.40) Hemoglobin 8.4 g/dL (12.0-15.5) Hematocrit 26.4 % (36.0-47.0) Mean Corpuscular Volume 80 fL (79-100) Mean Corpuscular Hemoglobin 26 pg (25-35) Mean Corpuscular Hemoglobin Concent 32 g/dL (31-37) Red Cell Distribution Width 15.0 % (11.5-14.5) Platelet Count 502 x10^3/uL (140-400) Neutrophils (%) (Auto) 68 % (31-73) Lymphocytes (%) (Auto) 21 % (24-48) Monocytes (%) (Auto) 8 % (0-9) Eosinophils (%) (Auto) 3 % (0-3) Basophils (%) (Auto) 1 % (0-3) Neutrophils # (Auto) 3.1 x10^3/uL (1.8-7.7) Lymphocytes # (Auto) 1.0 x10^3/uL (1.0-4.8) Monocytes # (Auto) 0.4 x10^3/uL (0.0-1.1) Eosinophils # (Auto) 0.1 x10^3/uL (0.0-0.7) Basophils # (Auto) 0.0 x10^3/uL (0.0-0.2) Sodium Level 139 mmol/L (136-145) Potassium Level 3.8 mmol/L (3.5-5.1) Chloride Level 105 mmol/L (98-107) Carbon Dioxide Level 29 mmol/L (21-32) Anion Gap 5 (6-14) Blood Urea Nitrogen 7 mg/dL (7-20) Creatinine 0.5 mg/dL (0.6-1.0) Estimated GFR (Cockcroft-Gault) 161.4 BUN/Creatinine Ratio 14 (6-20) Glucose Level 146 mg/dL (70-99) Calcium Level 8.1 mg/dL (8.5-10.1) Total Bilirubin 0.1 mg/dL (0.2-1.0) Aspartate Amino Transf (AST/SGOT) 21 U/L (15-37) Alanine Aminotransferase (ALT/SGPT) 26 U/L (14-59) Alkaline Phosphatase 59 U/L (46-116) Total Protein 5.4 g/dL (6.4-8.2) Albumin 1.8 g/dL (3.4-5.0) Albumin/Globulin Ratio 0.5 (1.0-1.7) Assessment and Plan Assessmemt and Plan Problems Medical Problems: (1) DKA (diabetic ketoacidoses) Status: Acute (2) Pancreatitis Status: Acute (3) Sepsis Status: Acute Comment Review of Relevant I have reviewed the following items allyssa (where applicable) has been applied. Justifications for Admission Other Justification NORMA WOODY MD November 05, 2020 10:25
[2020-11-05 10:28] VITALS: BP 96/63
--- NOTE | 2020-11-05 10:38 | PDOC3 ---
Discharge Summary Visit Information Date of Admission: Oct 21, 2020 Date of Discharge: November 05, 2020 Admitting Diagnosis: DKA, ulcerative colitis Final Diagnosis Problems Medical Problems: (1) DKA (diabetic ketoacidoses) Status: Acute (2) Pancreatitis Status: Acute (3) Sepsis Status: Acute Brief Hospital Course Allergies Allergies Coded Allergies Type Severity Reaction Last Updated Verified Penicillins Allergy Intermediate 11/01/20 Yes Vital Signs Vital Signs Date Time Temp Pulse Resp B/P (MAP) Pulse Ox O2 Delivery O2 Flow Rate FiO2 11/05/20 07:06 98.8 91 18 102/63 (76) 93 Room Air 98.8 11/04/20 15:00 Lab Results Laboratory Tests Test 11/03/20 11:15 11/03/20 16:58 11/03/20 21:25 11/04/20 07:25 Glucose (Fingerstick) 178 mg/dL (70-99) 151 mg/dL (70-99) 120 mg/dL (70-99) 117 mg/dL (70-99) Test 11/04/20 11:34 11/04/20 16:59 11/04/20 20:10 11/05/20 05:40 Glucose (Fingerstick) 149 mg/dL (70-99) 183 mg/dL (70-99) 88 mg/dL (70-99) White Blood Count 4.6 x10^3/uL (4.0-11.0) Red Blood Count 3.30 x10^6/uL (3.50-5.40) Hemoglobin 8.4 g/dL (12.0-15.5) Hematocrit 26.4 % (36.0-47.0) Mean Corpuscular Volume 80 fL (79-100) Mean Corpuscular Hemoglobin 26 pg (25-35) Mean Corpuscular Hemoglobin Concent 32 g/dL (31-37) Red Cell Distribution Width 15.0 % (11.5-14.5) Platelet Count 502 x10^3/uL (140-400) Neutrophils (%) (Auto) 68 % (31-73) Lymphocytes (%) (Auto) 21 % (24-48) Monocytes (%) (Auto) 8 % (0-9) Eosinophils (%) (Auto) 3 % (0-3) Basophils (%) (Auto) 1 % (0-3) Neutrophils # (Auto) 3.1 x10^3/uL (1.8-7.7) Lymphocytes # (Auto) 1.0 x10^3/uL (1.0-4.8) Monocytes # (Auto) 0.4 x10^3/uL (0.0-1.1) Eosinophils # (Auto) 0.1 x10^3/uL (0.0-0.7) Basophils # (Auto) 0.0 x10^3/uL (0.0-0.2) Sodium Level 139 mmol/L (136-145) Potassium Level 3.8 mmol/L (3.5-5.1) Chloride Level 105 mmol/L (98-107) Carbon Dioxide Level 29 mmol/L (21-32) Anion Gap 5 (6-14) Blood Urea Nitrogen 7 mg/dL (7-20) Creatinine 0.5 mg/dL (0.6-1.0) Estimated GFR (Cockcroft-Gault) 161.4 BUN/Creatinine Ratio 14 (6-20) Glucose Level 146 mg/dL (70-99) Calcium Level 8.1 mg/dL (8.5-10.1) Total Bilirubin 0.1 mg/dL (0.2-1.0) Aspartate Amino Transf (AST/SGOT) 21 U/L (15-37) Alanine Aminotransferase (ALT/SGPT) 26 U/L (14-59) Alkaline Phosphatase 59 U/L (46-116) Total Protein 5.4 g/dL (6.4-8.2) Albumin 1.8 g/dL (3.4-5.0) Albumin/Globulin Ratio 0.5 (1.0-1.7) Laboratory Tests Test 11/04/20 11:34 11/04/20 16:59 11/04/20 20:10 11/05/20 05:40 Glucose (Fingerstick) 149 mg/dL (70-99) 183 mg/dL (70-99) 88 mg/dL (70-99) White Blood Count 4.6 x10^3/uL (4.0-11.0) Red Blood Count 3.30 x10^6/uL (3.50-5.40) Hemoglobin 8.4 g/dL (12.0-15.5) Hematocrit 26.4 % (36.0-47.0) Mean Corpuscular Volume 80 fL (79-100) Mean Corpuscular Hemoglobin 26 pg (25-35) Mean Corpuscular Hemoglobin Concent 32 g/dL (31-37) Red Cell Distribution Width 15.0 % (11.5-14.5) Platelet Count 502 x10^3/uL (140-400) Neutrophils (%) (Auto) 68 % (31-73) Lymphocytes (%) (Auto) 21 % (24-48) Monocytes (%) (Auto) 8 % (0-9) Eosinophils (%) (Auto) 3 % (0-3) Basophils (%) (Auto) 1 % (0-3) Neutrophils # (Auto) 3.1 x10^3/uL (1.8-7.7) Lymphocytes # (Auto) 1.0 x10^3/uL (1.0-4.8) Monocytes # (Auto) 0.4 x10^3/uL (0.0-1.1) Eosinophils # (Auto) 0.1 x10^3/uL (0.0-0.7) Basophils # (Auto) 0.0 x10^3/uL (0.0-0.2) Sodium Level 139 mmol/L (136-145) Potassium Level 3.8 mmol/L (3.5-5.1) Chloride Level 105 mmol/L (98-107) Carbon Dioxide Level 29 mmol/L (21-32) Anion Gap 5 (6-14) Blood Urea Nitrogen 7 mg/dL (7-20) Creatinine 0.5 mg/dL (0.6-1.0) Estimated GFR (Cockcroft-Gault) 161.4 BUN/Creatinine Ratio 14 (6-20) Glucose Level 146 mg/dL (70-99) Calcium Level 8.1 mg/dL (8.5-10.1) Total Bilirubin 0.1 mg/dL (0.2-1.0) Aspartate Amino Transf (AST/SGOT) 21 U/L (15-37) Alanine Aminotransferase (ALT/SGPT) 26 U/L (14-59) Alkaline Phosphatase 59 U/L (46-116) Total Protein 5.4 g/dL (6.4-8.2) Albumin 1.8 g/dL (3.4-5.0) Albumin/Globulin Ratio 0.5 (1.0-1.7) Brief Hospital Course Ms Zamarripa is 45yo F w/ PMHx anemia, uterine fibroids who presented to the ED via EMS from home due to progressive weakness with 8-10 episodes of diarrhea and emesis. She was unable to lift her arms or legs. She had a headache 710 as well as some nominal pain 7 out of 10. She had just recently finished treatment with amoxicillin and Medrol for dental caries last week. Very tearful she has no history that she knows of high blood sugar or diabetes. She follows at [facility]. Initially admitted to the ICU on DKA protocol with glucose over 900. 10/22: Up and trying to eat, some anxiety and very emotional still. Went up on meal dose insulin. Transfer out of ICU. Bolus additional 1 liter NS 10/25: Code blue call last night, found to be stable. This morning she was tired, weak, and tachycardic (HR: 119). She has no new concerns or complaints. 10/26: Rapid response with tachycardia and abdominal pain 10/27: Emesis overnight 10/30: emesis x 1 5- pm Status post rapid response 10-26 because of fever tachycardia and abdominal pain. Patient continues to have low-grade fevers. She does continue to complain of diffuse abdominal pain and diarrhea. We do recommend her to place a rectal tube and GI is okay with that. Pending CT abdomen pelvis per ID and continue with empiric IV antibiotics. does not have history of recent travel, hiking, camping or working outside. She works at home mainly does not have any pets and works for the [employer] for [employer] services. Patient's chart, labs, images were reviewed and discussed with RN D/c Fluconazole 10/29 Await further GI f/u ? scope CONTINUE Zosyn, po vancomycin Probiotics d/w rn 10/31: Febrile 102.1 F. Glucose in 200s K 3.3. Still with abdominal pain today. D/w father bedside. Replace phos, mag, K. C diff negative. Sigmoidoscopy with ulcerative colitis 11/01: Afebrile. Glucose in 200s 300s. Abdominal pain a little better still with diarrhea. Labs improved. 11/02: Afebrile. Her stools have firmed up a little bit today. Labs stable improved. Albumin 1.7. She is anxious to transition to p.o. steroids in the next several days. 11/03: Afebrile. 6 loose bowel movements after changing to p.o. prednisone. No vomiting. Pain is more severe 7 out of 10. Glucose 176. Pathology consistent with ulcerative colitis. 11/04: Afebrile overnight. Glucose still moderately elevated. She has more s evere pain today and passing more gas still with loose bowels. She feels like her pain is not well enough controlled today worse than 48 hours ago. Afebrile overnight had one loose bowel movement. Glucose in the low 100s. She is actually pain-free for the first day and several days. She is smiling. She feels comfortable for discharge today and will go home on 40 mg of prednisone daily for 30 days and contact [facility] gastroenterology for refills. She also go home on mesalamine 3 times daily and pantoprazole 40 mg daily as well as Lantus 20 units nightly. Glucose is less than 124. Can decrease by 2 units following day. Also sliding scale of Humalog. Glucometer as well for home testing. [facility] paperwork has been submitted. Follow-up with [facility] in the next 2 to 4 weeks Consults: GI and ID Problem list: Nausea, vomiting, fever, and weakness. Found to be in DKA (blood sugar 900). Fever of unknown origin Pancolitis - ulcerative colitis by sigmoidoscopy 10/31/2020. confirmed on pathology. Pending repeat C. difficile Anxiety disorder - ativan PRN Anemia - Dehydration - Newly diagnosed diabetes - A1c 13.7 Hypokalemia Hypomagnesemia Greater than 30 minutes spent on d/c Discharge Information Condition at Discharge: Improved Follow Up: Weeks (1) Disposition/Orders: D/C to Home Scheduled Insulin Aspart (Novolog Flexpen) 100 Unit/1 Ml Insuln.pen, 3 UNIT SQ QIDACHS for DM2 for 30 Days, #3 Ref 5 Prescribed by: NORMA WOODY MD on 11/05/20 1015 Insulin Glargine,Hum.rec.anlog (Lantus Solostar) 100 Unit/1 Ml Insuln.pen, 20 UNIT SQ QHS for DM2 for 30 Days, #15 Ref 5 Prescribed by: NORMA WOODY MD on 11/05/20 1015 Mesalamine (Delzicol) 400 Mg Cap.drtab., 800 MG PO TID for Ulcerative colitis for 30 Days, #180 Ref 2 Prescribed by: NORMA WOODY MD on 11/05/20 1015 Ondansetron (Ondansetron Odt) 4 Mg Tab.rapdis, 1 TAB PO PRN Q6-8HRS for nausea for 10 Days, #16 Prescribed by: NORMA WOODY MD on 11/05/20 1015 Pantoprazole Sodium (Pantoprazole Sodium ) 40 Mg Tablet.dr, 40 MG PO DAILYAC for GERD for 30 Days, #30 Prescribed by: NORMA WOODY MD on 11/05/20 1015 Prednisone (Prednisone) 20 Mg Tablet, 40 MG PO DAILY for Ulcerative colitis for 30 Days, #60 Prescribed by: NORMA WOODY MD on 11/05/20 1015 Discontinued Medications Cyclobenzaprine Hcl (Cyclobenzaprine Hcl) 10 Mg Tablet, 1 TAB PO TID, #30 Prescribed by: Danelle Ayala APRN on 07/28/201958 Famotidine (Pepcid) 20 Mg Tablet, 20 MG PO BID, #30 Prescribed by: XIMENA ALMODOVAR APRN on 08/14/20 1342 Naproxen (Naproxen) 500 Mg Tablet, 1 TAB PO BID for pain, #20 Ref 0 Prescribed by: Danelle Ayala APRN on 07/28/201958 Sucralfate (Carafate) 1 Gm/10 Ml Oral.susp, 10 ML PO QID for 30 Days, #120 Ref 0 before food Prescribed by: XIMENA ALMODOVAR APRN on 08/14/20 1342 Justicifation of Admission Dx: Justifications for Admission: Justification of Admission Dx: Yes NORMA WOODY MD November 05, 2020 10:38
--- NOTE | 2020-11-05 12:46 | NUR ---
Discharge Note: VERONICA LOONEY [address] [place] [address] Discharge instructions and discharge home medications reviewed with Patient and a copy given. All questions have been answered and understanding verbalized. The following instructions and handouts were given: Diet, activity, medication list and follow up instructions provided to patient. Patient educated and returned demonstration of self insulin injection. ROEL Rodriguez verified all prescriptions were received by patient's pharmacy prior to discharge. Discontinued lines and drains: PICC line discontinued and catheter intact. Pressure held and pressure dressing applied. Patient discharged to Home or Self Care with family via Wheelchair.
== END 2020-11-05 12:38 | disposition home or self-care (01) | DRG 871 ==
LOC: ER 09:03 → 1 WEST ICU 12:00 → 4 NORTH 10-23 05:43 → 1 WEST ICU 10-26 16:46 → 4 NORTH 10-27 10:53
PROVIDERS: ADMIT Internal Medicine; ATTEND Internal Medicine
PROC: 02HV33Z Insertion of Infusion Device into Superior Vena Cava, Percutaneous Approach (ICD-10-PCS; 2020-10-26)
PROC: B548ZZA Ultrasonography of Superior Vena Cava, Guidance (ICD-10-PCS; 2020-10-26)
PROC: 5A0935A Assistance with Respiratory Ventilation, Less than 24 Consecutive Hours, High Flow/Velocity Cannula (ICD-10-PCS; 2020-10-27)
PROC: 0DBP8ZX Excision of Rectum, Via Natural or Artificial Opening Endoscopic, Diagnostic (ICD-10-PCS; principal; 2020-10-31 13:00)
DX: A41.9 Sepsis, unspecified organism (principal); E11.10 Type 2 diabetes mellitus with ketoacidosis without coma; K85.90 Acute pancreatitis without necrosis or infection, unspecified; K51.90 Ulcerative colitis, unspecified, without complications; D25.9 Leiomyoma of uterus, unspecified; D64.9 Anemia, unspecified; E83.42 Hypomagnesemia; E86.0 Dehydration; E87.6 Hypokalemia; F41.9 Anxiety disorder, unspecified; K02.9 Dental caries, unspecified; K21.9 Gastro-esophageal reflux disease without esophagitis; N28.1 Cyst of kidney, acquired; N83.01 Follicular cyst of right ovary; R32 Unspecified urinary incontinence; Z20.822 Contact with and (suspected) exposure to COVID-19; Z79.4 Long term (current) use of insulin; Z79.899 Other long term (current) drug therapy; Z83.3 Family history of diabetes mellitus; Z88.0 Allergy status to penicillin; Z98.891 History of uterine scar from previous surgery
CPT/HCPCS: 36415; 36569; 45380; 70486; 71045; 71275; 74018; 74177; 77001; 80048; 80053; 80076; 80307; 80329; 81001; 81025; 82010; 82550; 82607; 82962; 83036; 83540; 83550; 83605; 83631; 83690; 83735; 83930; 84100; 84443; 84478; 84484; 84703; 85007; 85025; 85379; 85610; 85730; 87040; 87426; 87493; 87505; 87804; 88305; 93005; 96360; 96361; C9113; G0480; J0878; J1450; J1650; J1815; J1885; J1956; J2060; J2185; J2405; J2543; J2704; J2920; J2997; J3010; J3475; J3480; J3490; J7030; J7040; J7042; J7050; J7120; J7512; Q9967; U0003; U0005; 97116-GP; 97168-GO; 97530-GO; 97530-GP; 97535-GO; 99285-25; G0378